=== PATIENT | female | born 1965 | race Caucasian/White ===

== ENCOUNTER → 2017-02-25 | Outpatient (CLI) | payer OTHER ==
--- NOTE | 2017-03-02 19:53 | HOLTMON ---
[facility] Test Date: 2017-02-25 Pat Name: VICKIE SINHA Department: Room: - Gender: Female Shank Sorter: PHIL BOWMAN : 1965 Requested By: Merle Eaton Order Number: [id number] Reading MD: Ramses Pina Interpretive Statements BOTH PARENT HAVE HEART PROBLEM Underlying sinus rhythm with a rate that varied between 54 bpm at 10:22 PM and 95 bpm at 3:40 AM, averaging 70 bpm. Rare isolated asymptomatic PACs (averaging 17 per hour), atrial couplets (8 per hour) and rare atrial triplets/4 beat runs of ectopic atrial tachycardia but no true PSVT. Very rare asymptomatic PVCs averaging less than one per hour. The patient did not report palpitations during this 24 hours. The observed rhythm findings would be considered well within normal limits. Electronically Signed On 03-02-2017 19:53:02 EDT by Ramses Pina
== END ==
LOC: M EKG 11:57
PROVIDERS: ATTEND Registered Nurse
DX: R00.2 Palpitations (principal)

== ENCOUNTER → 2018-09-25 | Outpatient (CLI) | payer OTHER ==
[2018-09-25 11:08] LABS: BASO # 0.1 10^3/uL (0.0-0.2); BASO % 0.8 % (0.0-1.0); EOS # 0.3 10^3/uL (0.0-0.50); EOS % 2.3 % (0.0-3.0); HEMATOCRIT 37.9 % (36.0-47.0); HEMOGLOBIN 12.4 g/dl (12.0-15.5); LYMPH # 3.6 10^3/uL (1.5-4.5); LYMPH % 29.7 % (24.0-44.0); MEAN CORPUSCULAR HEMOGLOBIN 28.5 pg (27.0-33.0); MEAN CORPUSCULAR HGB CONC 32.7 g/dl (32.0-36.5); MEAN CORPUSCULAR VOLUME 87.1 fl (80.0-96.0); MONO # 0.7 10^3/uL (0.0-0.8); MONO % 5.7 % (0.0-5.0); NEUTROPHILS # 7.4 10^3/uL (1.8-7.7); NEUTROPHILS % 60.5 % (36.0-66.0); PLATELET COUNT, AUTOMATED 342 10^3/uL (150-450); RED BLOOD COUNT 4.35 10^6/uL (4.00-5.40); WHITE BLOOD COUNT 12.2 10^3/uL (4.0-10.0)
[2018-09-25 11:34] LABS: ALT/SGPT 43 U/L (12-78); BILIRUBIN,TOTAL 0.8 MG/DL (0.2-1.0); BLOOD UREA NITROGEN 11 MG/DL (7-18); CALCIUM LEVEL 9.3 MG/DL (8.5-10.1); CARBON DIOXIDE LEVEL 26 MEQ/L (21-32); CHLORIDE LEVEL 103 MEQ/L (98-107); CREATININE FOR GFR 0.82 MG/DL (0.55-1.30); FREE T4 1.03 NG/DL (0.76-1.46); GLOMERULAR FILTRATION RATE > 60.0 (>51); GLUCOSE, FASTING 97 MG/DL (70-100); IRON (FE) 79 UG/DL (50-170); PERCENT SATURATION 19.5 % (13.2-45.0); POTASSIUM SERUM 4.2 MEQ/L (3.5-5.1); SODIUM LEVEL 135 MEQ/L (136-145); TOTAL IRON BINDING CAPACITY 406 UG/DL (250-450); TOTAL PROTEIN 7.7 GM/DL (6.4-8.2)
[2018-09-25 11:37] LABS: HEPATITIS B SURFACE ANTIBODY NEGATIVE (POSITIVE)
[2018-09-25 11:48] LABS: HEPATITIS B SURFACE ANTIGEN NEGATIVE (NEGATIVE)
[2018-09-25 12:15] LABS: HEPATITIS C VIRUS ABY INDEX 0.1 INDEX (<0.8)
[2018-09-25 12:16] LABS: HEPATITIS B CORE ANTIBODY IGM NEGATIVE (NEGATIVE)
[2018-09-25 12:18] LABS: HEPATITIS A ANTIBODY IGM NEGATIVE (NEGATIVE)
== END ==
LOC: M LAB 09:54
PROVIDERS: ATTEND Internal Medicine Gastroenterology
DX: R19.7 Diarrhea, unspecified (principal); R63.4 Abnormal weight loss

== ENCOUNTER 2018-10-03 11:50 | Day surgery (SDC) | payer OTHER ==
[~2018-10-03] VITALS: Ht 160 cm; Wt 56.7 kg
[~2018-10-03 11:50] MED LIST: AMLO10TA5 PO; ATEN100T PO; ATOR40TA75 PO; BASA100I SC; BUPR300T34 PO; CLON0.5T8 PO; GEMF600T5 PO; LOSA100T8 PO; METF10004 PO; NESI25TA PO; NICO14DI24 TD; TRAZ-163 PO
[2018-10-03] MEDS ORDERED: NS 1,000 ML IV ONE (13:00)
[2018-10-03] MEDS ORDERED: fentaNYL 100 MCG/2 ML INJECTION (J3010) As Ordered ONE (13:51)
[2018-10-03] MEDS ORDERED: PROPOFOL 500 MG/50 ML VIAL As Ordered ONE (13:52)
[2018-10-03] MEDS ORDERED: LIDOCAINE 2% INJ 100 MG/5 ML SDV (FOR ANES.) As Ordered ONE (13:58)
--- NOTE | 2018-10-03 15:12 | ROOR ---
Patient Name: Rina Gould Procedure Date: 10/03/2018 2:59 PM Date of : 1965 Age: 53 Room: [facility] Gender: Female Note Status: Finalized Procedure: Upper GI endoscopy Indications: Weight loss Providers: Fransisco BUCIO MD Referring MD: Rita DE LEON MD Requesting Provider: Medicines: Monitored Anesthesia Care Complications: No immediate complications. Procedure: Pre-Anesthesia Assessment: - The heart rate, respiratory rate, oxygen saturations, blood pressure, adequacy of pulmonary ventilation, and response to care were monitored throughout the procedure. The Endoscope was introduced through the mouth, and advanced to the second part of duodenum. The upper GI endoscopy was accomplished without difficulty. The patient tolerated the procedure well. Findings: The esophagus was normal. The stomach was normal. The examined duodenum was normal. Impression: - Normal esophagus. - Normal stomach. - Normal examined duodenum. - No specimens collected. Recommendation: - Observe patient's clinical course. Fransisco Bucio MD Fransisco BUCIO MD 10/03/2018 3:11:32 PM This report has been signed electronically. Number of Addenda: 0 Note Initiated On: 10/03/2018 2:59 PM Estimated Blood Loss: Estimated blood loss: none.
--- NOTE | 2018-10-03 15:39 | ROOR ---
Patient Name: Rina Gould Procedure Date: 10/03/2018 3:00 PM Date of : 1965 Age: 53 Room: [facility] Gender: Female Note Status: Finalized Procedure: Colonoscopy Indications: Change in bowel habits, Weight loss Providers: Fransisco BUCIO MD Referring MD: Rita DE LEON MD Requesting Provider: Medicines: Monitored Anesthesia Care Complications: No immediate complications. Procedure: Pre-Anesthesia Assessment: - The heart rate, respiratory rate, oxygen saturations, blood pressure, adequacy of pulmonary ventilation, and response to care were monitored throughout the procedure. The Colonoscope was introduced through the anus and advanced to the cecum, identified by appendiceal orifice and ileocecal valve. The colonoscopy was performed without difficulty. The patient tolerated the procedure well. The quality of the bowel preparation was adequate and fair. Findings: The perianal and digital rectal examinations were normal. A 7 mm polyp was found in the hepatic flexure. The polyp was sessile. The polyp was removed with a cold snare. Resection and retrieval were complete. Mild sigmoid diverticulosis and small internal hemorrhoids. The exam was otherwise without abnormality on direct and retroflexion views. Biopsies for histology were taken with a cold forceps from the entire colon for evaluation of microscopic colitis. Impression: - Preparation of the colon was fair/adequate. - One 7 mm polyp at the hepatic flexure, removed with a cold snare. Resected and retrieved. - Mild sigmoid diverticulosis and small internal hemorrhoids. - The examination was otherwise normal on direct and retroflexion views. - Biopsies were taken with a cold forceps from the entire colon for evaluation of microscopic colitis. Recommendation: - Repeat colonoscopy in 3 years because the bowel preparation was suboptimal. - Repeat colonoscopy in 3 years for adenoma surveillance. Fransisco Bucio MD Fransisco BUCIO MD 10/03/2018 3:38:20 PM This report has been signed electronically. Number of Addenda: 0 Note Initiated On: 10/03/2018 3:00 PM Estimated Blood Loss: Estimated blood loss: none.
[2018-10-03 16:00] VITALS: BP 135/73
== END 2018-10-03 16:11 | disposition home or self-care (01) ==
LOC: M OPP 11:50
PROVIDERS: ATTEND Internal Medicine Gastroenterology
DX: D12.3 Benign neoplasm of transverse colon (principal); R19.4 Change in bowel habit; R63.4 Abnormal weight loss; K57.30 Diverticulosis of large intestine without perforation or abscess without bleeding; K74.60 Unspecified cirrhosis of liver; Z79.899 Other long term (current) drug therapy; Z79.84 Long term (current) use of oral hypoglycemic drugs; F17.210 Nicotine dependence, cigarettes, uncomplicated
CPT/HCPCS: 43235; 45380; 45385; 88305; J3010

== ENCOUNTER → 2018-10-19 | Outpatient (REF) | payer OTHER | LOC: M LAB REF 12:49 | PROVIDERS: ATTEND Internal Medicine Endocrinology, Diabetes & Metabolism | DX: E04.2 Nontoxic multinodular goiter (principal) ==

== ENCOUNTER → 2019-06-29 | Outpatient (CLI) | payer OTHER ==
[2019-06-29 11:03] LABS: ALBUMIN 3.8 GM/DL (3.2-5.2); ALT/SGPT 38 U/L (12-78); BILIRUBIN,DIRECT < 0.1 MG/DL (0.0-0.2); BILIRUBIN,TOTAL 0.3 MG/DL (0.2-1.0); BLOOD UREA NITROGEN 12 MG/DL (7-18); CREATININE FOR GFR 0.83 MG/DL (0.55-1.30); GAMMA GLUTAMYLTRANSPEPTIDASE 55 U/L (5-55); GLOMERULAR FILTRATION RATE > 60.0 (>51); TOTAL PROTEIN 7.9 GM/DL (6.4-8.2)
== END ==
LOC: M LAB 09:36
PROVIDERS: ATTEND Internal Medicine Gastroenterology
DX: K70.30 Alcoholic cirrhosis of liver without ascites (principal); R63.4 Abnormal weight loss

== ENCOUNTER → 2020-03-11 | Outpatient (CLI) | payer OTHER ==
[~2020-03-11] MED LIST changes: -AMLO10TA5 PO; +AMLO1TAB25 PO; -BUPR300T34 PO; +BUPR300T92 PO; +CLON0.5T2 PO; -CLON0.5T8 PO; +EXEM25TA PO; +FENO67CA2 PO; +FERR325T3 PO; +GABA-843 PO; +JANU100T PO; +LETR2.5T2 PO; +LISI10TA4 PO; +METO1TAB87 PO; -TRAZ-163 PO; +TRAZ-257 PO
--- NOTE | 2020-04-15 10:43 | DEXA ---
AP SPINE L2 - L4 1.344 1.2 2.2 LT FEMUR TOTAL LT NECK Ck RT FEMUR TOTAL 0.956 -0.4 0.3 RT NECK 1.048 0.1 1.2 TOTAL BODY TOTAL OTHER COMMENTS: Normal Bone Densitometry of the spine. Normal Bone Densitometry of the right hip. FOLLOW-UP: Recommendation for the next bone density exam: 5 years. RENETTA
== END ==
LOC: M WHC 17:27
PROVIDERS: ATTEND Internal Medicine Medical Oncology
DX: M85.9 Disorder of bone density and structure, unspecified (principal)

== ENCOUNTER → 2020-11-03 | Outpatient (CLI) | payer OTHER ==
[~2020-11-03] MED LIST changes: +GABA-282 PO; -GABA-843 PO; +INSU100I28 SQ; +LISI10TA22 PO; -LISI10TA4 PO; +TRUL10IN SC
--- NOTE | 2020-11-03 13:18 | REP ---
INDICATION: LT BREAST MASS. Status post mastectomy January of 2020. 2 lumps in the inferior aspect of the mastectomy scar. COMPARISON: None. TECHNIQUE: Targeted sonography of the left chest wall. FINDINGS: There are 2 palpable areas adjacent 1 another along the mastectomy scar. Both of these areas have a similar appearance being complex but essentially isoechoic. One measures 7 by 15 x 4 mm and the other 6 x 8 x 3 mm. They are not simple cysts or simple fluid collections. Both are just beneath the dermis. IMPRESSION: Palpable areas correspond to solid cysts subdermal areas sonographically. These are not simple cysts and are nonspecific. They are essentially isoechoic. If biopsy is not performed, close clinical follow-up is recommended. <Electronically signed by Syd Perdomo > 11/03/20 [id number]
== END ==
LOC: M RAD 11:34
PROVIDERS: ATTEND Internal Medicine Medical Oncology
DX: N60.02 Solitary cyst of left breast (principal); Z90.12 Acquired absence of left breast and nipple; Z85.3 Personal history of malignant neoplasm of breast

== ENCOUNTER → 2020-11-04 | Outpatient (CLI) | payer OTHER ==
[2020-11-04 13:01] LABS: ALBUMIN 3.8 GM/DL (3.2-5.2); ALT/SGPT 45 U/L (12-78); BILIRUBIN,TOTAL 0.4 MG/DL (0.2-1.0); BLOOD UREA NITROGEN 12 MG/DL (7-18); CALCIUM LEVEL 9.8 MG/DL (8.5-10.1); CARBON DIOXIDE LEVEL 28 MEQ/L (21-32); CHLORIDE LEVEL 107 MEQ/L (98-107); CREATININE FOR GFR 0.79 MG/DL (0.55-1.30); GLOMERULAR FILTRATION RATE > 60.0 (>51); GLUCOSE, FASTING 128 MG/DL (70-100); POTASSIUM SERUM 4.6 MEQ/L (3.5-5.1); PTH INTACT 13.3 PG/ML (18.5-88.0); SODIUM LEVEL 139 MEQ/L (136-145); TOTAL PROTEIN 7.5 GM/DL (6.4-8.2)
[2020-11-05 11:10] LABS: ALBUMIN % 57.2 % (55.8-66.1); ALPHA-1-GLOBULIN % 3.6 % (2.9-4.9); ALPHA-2-GLOBULINS % 10.8 % (7.1-11.8); BETA-1-GLOBULINS % 6.5 % (4.7-7.2); BETA-2-GLOBULINS % 5.6 % (3.2-6.5)
[2020-11-05 11:11] LABS: ALBUMIN 4.29 GM/DL (3.29-5.55); ALPHA-1-GLOBULINS 0.27 GM/DL (0.17-0.41); ALPHA-2-GLOBULINS 0.81 GM/DL (0.42-0.99); BETA-1-GLOBULINS 0.49 GM/DL (0.28-0.60); BETA-2-GLOBULINS 0.42 GM/DL (0.19-0.55); GAMMA GLOBULIN % 16.3 % (11.1-18.8); GAMMA GLOBULINS 1.22 GM/DL (0.65-1.58)
[2020-11-05 18:07] LABS: FREE LAMBDA LIGHT CHAINS SERUM 27.5 mg/L (5.7-26.3); KAPPA/LAMBDA RATIO SERUM 1.16 (0.26-1.65)
== END ==
LOC: M LAB 11:13
PROVIDERS: ATTEND Internal Medicine Medical Oncology
DX: C50.912 Malignant neoplasm of unspecified site of left female breast (principal)

== ENCOUNTER → 2020-11-06 | Outpatient (CLI) | payer OTHER ==
[2020-11-06 15:12] LABS: INR 0.93; PROTHROMBIN TIME 12.7 SECONDS (12.5-14.3)
[2020-11-06 15:27] LABS: ALBUMIN 3.9 GM/DL (3.2-5.2); ALT/SGPT 61 U/L (12-78); BILIRUBIN,DIRECT < 0.1 MG/DL (0.0-0.2); BILIRUBIN,TOTAL 0.2 MG/DL (0.2-1.0); BLOOD UREA NITROGEN 9 MG/DL (7-18); CREATININE FOR GFR 0.72 MG/DL (0.55-1.30); GLOMERULAR FILTRATION RATE > 60.0 (>51); TOTAL PROTEIN 7.4 GM/DL (6.4-8.2)
== END ==
LOC: M LAB 12:09
PROVIDERS: ATTEND Internal Medicine Gastroenterology
DX: K70.30 Alcoholic cirrhosis of liver without ascites (principal)

== ENCOUNTER → 2020-11-18 | Outpatient (CLI) | payer OTHER ==
--- NOTE | 2020-11-18 12:26 | REP ---
INDICATION: LT SHOULDER PAIN, HX OF BREAST CA. COMPARISON: None. TECHNIQUE/RADIOTRACER AND DOSE: Following the intravenous administration of 21.8 mCi technetium 99 M MDP, patient's whole-body is imaged in multiple projections. FINDINGS: There is arthritic uptake seen in the wrists bilaterally. There is mild increased uptake in the right mandible. This is likely related to the patient's dentition. There is no compelling scintigraphic evidence of osseous metastases. Renal and bladder activity are seen. IMPRESSION: No compelling scintigraphic evidence of osseous metastases. <Electronically signed by Jason Moncada > 11/18/20 [id number]
== END ==
LOC: M RAD 07:33
PROVIDERS: ATTEND Internal Medicine Medical Oncology
DX: M25.512 Pain in left shoulder (principal)
CPT/HCPCS: 78306; A9503

== ENCOUNTER → 2020-12-05 | Outpatient (CLI) | payer OTHER ==
[~2020-12-05] MED LIST changes: +DICY10SO PO; +HYDR-3363 PO; +TOPR25TA PO; +VITAE40CA PO; +tumeric PO
== END ==
LOC: M LABSMTC 09:42
PROVIDERS: ATTEND Anesthesiology
DX: Z01.812 Encounter for preprocedural laboratory examination (principal); Z20.822 Contact with and (suspected) exposure to COVID-19

== ENCOUNTER → 2020-12-05 | Outpatient (REF) | payer OTHER ==
[2020-12-05 16:01] LABS: BLOOD UREA NITROGEN 10 MG/DL (7-18); CALCIUM LEVEL 9.4 MG/DL (8.5-10.1); CARBON DIOXIDE LEVEL 27 MEQ/L (21-32); CHLORIDE LEVEL 103 MEQ/L (98-107); CREATININE FOR GFR 0.86 MG/DL (0.55-1.30); GLOMERULAR FILTRATION RATE > 60.0 (>51); GLUCOSE, FASTING 259 MG/DL (70-100); POTASSIUM SERUM 4.4 MEQ/L (3.5-5.1); SODIUM LEVEL 134 MEQ/L (136-145)
== END ==
LOC: M PLALAB 15:03
PROVIDERS: ATTEND Nurse Practitioner Family
DX: N28.9 Disorder of kidney and ureter, unspecified (principal)

== ENCOUNTER → 2020-12-05 | Outpatient (CLI) | payer OTHER ==
--- NOTE | 2020-12-05 10:51 | REPMRS ---
Patient History The patient states she had a clinical breast exam in October 2020. Patient has been on Exemestane since 03/2020. Patient has history of breast cancer at age 55. No known family history of cancer. Mastectomy of the left breast, January 2020. Patient has no breast complaints but commented her right breast was tender during the mammogram. Patient has signed the MRS history sheet. Diagnostic Unilateral Mammo: Right Breast - December 05, 2020 - Exam #: [id number] CC and MLO view(s) were taken of the right breast. Technologist: Natalie Carolina, Technologist Prior study comparison: December 05, 2019, digital mammo screening bilat, performed at [facility]. FINDINGS: There are scattered fibroglandular densities. There has been no change in the appearance of the right breast parenchyma in the interval since the prior examination. No mass, architectural distortion, or microcalcific grouping has developed. No suspicious finding. 3-D tomosynthesis shows no additional findings. Assessment: BI-RADS/ACR category 2 mammogram. Benign Findings. Recommendation Routine screening mammogram of the right breast in 1 year. This mammogram was interpreted with the aid of an FDA-approved computer-aided dectection system. Electronically Signed By: Syd Perdomo MD 12/05/20 2408
== END ==
LOC: M WHC 09:48
PROVIDERS: ATTEND Surgery
DX: C50.912 Malignant neoplasm of unspecified site of left female breast (principal)
CPT/HCPCS: 77065; G0279

== ENCOUNTER → 2021-01-16 | Outpatient (CLI) | payer OTHER ==
[~2021-01-16] MED LIST changes: +ISOVUE-370 76% 100ML VIAL As Ordered ONE
--- NOTE | 2021-01-17 07:56 | REP ---
INDICATION: RENAL LESION. COMPARISON: None TECHNIQUE: Axial noncontrast, contrast-enhanced and delayed images of the abdomen using 100 cc Isovue 370 intravenous contrast material. Coronal and sagittal reformations obtained. This CT examination was performed using the following dose reduction techniques: Automated exposure control, adjustment of mA and/or kv according to the patient's size, and the use of iterative reconstruction technique. FINDINGS: There appears to be a 1.5 cm mildly enhancing lesion along the posterior upper pole aspect of the right kidney suggesting neoplasm unless proven otherwise. Remainder of the right kidney is normal and there is no perinephric stranding, adenopathy or venous/arterial abnormality. Liver demonstrates fatty infiltration without focal hepatic lesion. Spleen, pancreas, bilateral adrenal glands are normal. Prior cholecystectomy noted. The left kidney includes a 2 mm nonobstructing nephrolith. Visualized portions of the enteric system are unremarkable. No ascites. No free air. No obvious significant adenopathy. Lung bases clear. IMPRESSION: 1. A 1.5 cm mildly enhancing lesion in the right kidney is suspicious for neoplasm. No associated perinephric stranding, adenopathy, or vascular abnormality. 2. 2 mm nonobstructing left nephrolith. <Electronically signed by Greyson Martínez > 01/17/21 1023
== END ==
LOC: M RAD 17:40
PROVIDERS: ATTEND Nurse Practitioner Family
DX: N28.9 Disorder of kidney and ureter, unspecified (principal); N20.0 Calculus of kidney
CPT/HCPCS: 74170; Q9967

== ENCOUNTER 2021-03-19 07:30 | Inpatient (IN) | payer OTHER ==
[~2021-03-19] VITALS: Ht 157.5 cm; Wt 58.5 kg
[~2021-03-19 07:30] MED LIST changes: +ALPR1TAB3 PO; +CALC1TAB30 PO; +CLON0.2T PO; +DESV25TA; -FENO67CA2 PO; +FENO67CA6 PO; +FERR325T19; +FLUO10CA16; -ISOVUE-370 76% 100ML VIAL As Ordered ONE; +PRESTIQ PO; +PRIS1TAB PO; +QUET1TAB17 PO; +RA T500C2 PO; +SERO1TAB3 PO; +XANA1TAB2 PO; +ZITH500T PO
[2021-03-25] MEDS ORDERED: PROC30TA PO (09:11)
[2021-04-07] MEDS ORDERED: ceFAZolin SOD 2 GM in IV 1 EA IV ONE (06:00)
[2021-04-07] MEDS ORDERED: LR 1,000 ML IV ONE (06:00)
[2021-04-07] MEDS ORDERED: ROCURONIUM BROMIDE 50 MG/5 ML VIAL As Ordered ONE ×3 (09:53→15:54)
[2021-04-07] MEDS ORDERED: propofoL 200 MG/20 ML VIAL As Ordered ONE ×2 (09:53→17:52)
[2021-04-07] MEDS ORDERED: fentaNYL 100 MCG/2 ML INJECTION (J3010) As Ordered ONE (09:53)
[2021-04-07] MEDS ORDERED: LIDOCAINE 2% 100MG/5ML SDV (FOR ANES.) As Ordered ONE ×2 (09:53→09:54)
[2021-04-07] MEDS ORDERED: dexameTHASONE 4 MG/ML 1ML VIAL (J1100 PER 1MG) As Ordered ONE (09:54)
[2021-04-07] MEDS ORDERED: ONDANSETRON 4MG/2ML VIAL As Ordered ONE (09:54)
[2021-04-07] MEDS ORDERED: MIDAZOLAM INJ 2MG/2ML VIAL (J2250 PER 1MG) As Ordered ONE (09:54)
--- OUTSIDE RECORDS SUMMARY | 2021-04-07 10:40 | CCD | Continuity of Care Document ---
Author Author Rina ROSE MD Organization Unknown Address [address] [place] [address] Phone [phone] Care Team Providers Care Sketch Artist Name Role Phone Rita Rose MD AUTM [phone] [facility] Gastroenterology AUTM [phone] Erika Chandra AUTM [phone] [facility] [facility] AUTM [phone] [facility] Behavioral Health AUTM [phone] Braulio Figueroa MD AUTM [phone] [facility] AUTM [phone] [facility] Breast Surgery; DR. Duarte AUTM Problems Active Problems Provider Date Type 2 diabetes mellitus VINAYAK [place] Onset: 06/05/20 18 Micronodular cirrhosis Rita Rose MD Onset: 07/18/20 18 Note: Steatohepatitis with foci of micro nodular cirrhosis on biopsy 11/24/16. Congenital cystic disease of liver Rita Rose MD Ons et: 07/28/2018 Non-toxic nodular goiter Rita Rose MD Onset: 2017 Note: Biopsy September 2018. Benign Hyperlipidemia Rita Rose MD Onset: 07/28/2018 Malaise and fatigue Rita Rose MD Onset: 07/28/2018 Polyp of colon Rita Rose MD Onset: 10/04/2018 Note: 7 mm hepatic flexure polyp Diverticular disease Rita Rose MD Onset: 10/04/2018 Note: Mild sigmoed diverticulosis Abnormal findings diagnostic imaging of liver+biliary tract Rita Rose MD Onset: 12/20/2018 Anxiety state Rita Rose MD Onset: 12/20/2018 Peripheral arterial occlusive disease Rita Rose MD Onset: 05/09/2019 Note: Stenosis in the left common femora l artery and right common femoral arteries as described above with an occluded left SFA. Stenosis in the right popliteal artery as described above. Absent dorsalis pedis artery on the left in the foot. 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 ER and [place] posi tive. Her 2 negative. Ki67 10% positive. History of mastectomy Rita Rose MD Onset: 0 Iron deficiency anemia Rita Rose MD Onset: 04/01/20 20 Social History Type Date Description Comments Sex Unknown Tobacco Use Start: Unknown Light tobacco smoker (10 or fewe r cigarettes/day) Tobacco Use Start: Unknown Never Smoked Cigars Tobacco Use Start: Unknown Never Smoked A Pipe Tobacco Use Start: Unknown Never Used Smokeless Tobacco ETOH Use Denies alcohol use Tobacco Use Start: Unknown Patient is a current smoker, smo kes every day 5 cigarettes per day Recreational Drug Use Denies Drug Use Guns in Home Yes, Locked Up Smoke Alarms Carbon Monoxide Detector: Yes Smoke Alarms Yes Allergies, Adverse Reactions, Alerts Active Allergies Reaction Severity Comments Date NKEA 05/22/2019 NKFA 05/22/2019 Trulicity nausea, head fuzzy, feeling off 01/19/2021 Inactive Allergies NKDA 06/05/2018 Medications Active Medications SIG Qnty Indications Ordering Provide r Date Cephalexin 500mg Capsules 1 by mouth twice daily 14caps Rita Rose MD 03/13/2021 Clonidine HCL 0.1mg Tablets take one tablet three times daily 90tabs Rita Rose MD 0 03/13/2021 Tessalon Perles 100mg Capsules 2 capsules by mouth three time per day as needed for cough 30capflores Rose MD 03/13/2021 Albuterol Sulfate HFA 108(90Base) mcg/Act Aerosol inhale 1 puff by mouth every 4 hours as needed 25.5gm Rita Rose MD 03/13/2021 Semglee 100Unit/ML Solution Pen-In ject inject subcutaneously 26 units once a day 6ml E11.9 Rita ventura MD 09/24/2020 Cyclobenzaprine HCL 10mg Tablets take one tablet by mouth twice a day as needed for muscle spasm 90tabs Rita Rose MD 05/15/2020 Amlodipine Besylate 10mg Tablets take 1 tablet by mouth once a day 30tabs Rita Rose MD 05/15/2020 Ulticare Miscellaneous Use With Basaglar Pen Once Daily. 30unisabel Rose MD 04/16/2020 Mastectomy Bra/Prosthesis Dx- Left mastectomy for Carcinoma breast Rita Rose MD 02/12/2020 Pen [place] 3/16" 31G X 5 mm Misc use with basaglar pen once daily. 100units Rita Rose MD 0 10/17/2019 Trazodone HCL 100mg Tablets 1 tab by mouth daily at bedtime take 1/2 tablet by mouth in the morning and one tablet in the evening will be prescribed by at [facility] 90tabs Lacey Rose MD 09/26/2019 Fenofibrate Micronized 67mg Capsul es take 1 capsule by mouth once a day 90sarita Rose MD 05/22/2019 Atorvastatin Calcium 40mg Tablets Take 1 Tablet By Mouth AT Bedtime 30tacamila Rose MD 08/18/2018 Nicotine Transdermal System Step 2 14mg/24HR Patches 24HR 1 patch to skin per day. Take off at night. 28unisabel Rose MD 07/28/2018 Metformin HCL 1000mg Tablets take 1 tablet by mouth twice a day 180awais Rose MD Gabapentin 300mg Capsules take 1 capsule by mouth three times a day 180capflores Rose MD Ferrousul 325(65Fe) mg Tablets 1 by mouth every other day(otc) Unknown Calcium 500 + D3 [id number] Ta blets 2 daily by mouth Unknown Exemestane 25mg Tablets Unknown Freestyle Lite Test Strips test blood sugars twice daily 200unisabel Rose MD 000 Desvenlafaxine Succinate ER 25mg Tablets ER 24HR Take One Tablet By Mouth Once A Day In The Morning Unknown Quetiapine Fumarate 25mg Tablets Unknown Alprazolam 1mg Tablets half tablet in the morningand 1 at bedtime. 45tacamila Rose MD 0 History Medications Prednisone 20mg Tablets 3 by mouth daily for 2 days. 2 by mouth daily for next 2 days. then 1 by mouth for 2 days. take in the morning. 12tacamila Rose MD 03/13/2021 - 04/01/2021 Nifedipine ER 30mg Tablets ER 24HR 1 by mouth dialy 30awais Rose MD 03/13/2021 - 03/13/2021 Azithromycin 250mg Tablets two tablets orally today then 1 tablet orally daily 6tacamila best MD 02/27/2021 - 03/13/2021 Immunizations CPT Code Status Date Vaccine Lot # [id number] Given 05/22/2019 HepB Adult (Engerix/Recombiv ax) 1mL Vacc [id number] Given 05/22/2019 Influenza (>= 6 Months) P.F. Vaccine [id number] Given 12/20/2018 HepB Adult (Engerix/Recombiv ax) 1mL Vacc [id number] Given 12/20/2018 Pneumococcal 13(Prevnar 13) Vaccine [id number] Given 08/18/2018 HepB Adult (Engerix/Recombiv ax) 1mL Vacc [id number] Vital Signs Date Vital Result Comment 04/01/2021 8:42am BP Systolic 132 mmHg BP Diastolic 70 mmHg Heart Rate 68 /min Body Temperature 96.7 F Respiratory Rate 16 /min O2 % BldC Oximetry 96 % Weight 130.00 lb Weight 58.968 kg Height 62 inches 5'2" BMI (Body Mass Index) 23.8 kg/m2 BSA (Body Surface Area) 1.59 m2 03/13/2021 9:35am BP Systolic 132 mmHg BP Diastolic 70 mmHg Heart Rate 72 /min Body Temperature 96.0 F Respiratory Rate 16 /min O2 % BldC Oximetry 97 % Weight 131.00 lb Weight 59.422 kg Height 62 inches 5'2" BMI (Body Mass Index) 24.0 kg/m2 BSA (Body Surface Area) 1.60 m2 Results Test Acquired Date Facility Test Result H/L Range Note Urinalysis 03/13/2021 [facility] Urinalysis (SEE NOTE) 1, 2 Source R Color yellow Normal: Yellow Clarity clear Normal: Clear Spec [place] 1.010 1.001 - 1.030 pH 6 5 - 9 Glucose NORM Normal: Negative Bilirubin NEG Normal: Negative Ketone NEG Normal: Negative Protein 30 Normal: Negative Nitrite NEG Normal: Negative Blood NEG Normal: Negative Leuk Est NEG Normal: Negative Urobilinogen NOR less than 1.0 mg/dL Microscopic Not Indicate Cuture Urine 03/13/2021 [facility] Culture Urine (SEE NOTE) 3 Laboratory test finding 03/13/2021 [facility] Hgba1c 8.2 % High 4.4 - 6.1 4 CBC With Differential 03/06/2021 [facility] White Blood Count 8.5 10 Normal 4.0-10.0 Red Blood Count 4.47 10 Normal 4.00-5.40 Hemoglobin 13.3 g/dL Normal 12.0-15.5 Hematocrit 40.3 % Normal 36.0-47.0 Mean Corpuscular Volume 90.2 fl Normal 80.0-96.0 Mean Corpuscular Hemoglobin 29.8 pg Normal 27.0-33.0 Mean Corpuscular HGB Conc 33.0 g/dL Normal 32.0-36.5 Red Cell Distribution Width 13.9 % Normal 11.5-14.5 Platelet Count, Automated 333 10 Normal 150-450 Neutrophils % 63.0 % Normal 36.0-66.0 Lymph % 26.5 % Normal 24.0-44.0 [place] % 6.8 % Normal 2.0-8.0 Eos % 1.9 % Normal 0.0-3.0 Baso % 0.9 % Normal 0.0-1.0 Immature Granulocyte % 0.9 % Normal 0-3.0 Nucleated Red Blood Cell % 0.0 % Normal 0-0 Neutrophils # 5.3 10 Normal 1.5-8.5 Lymph # 2.3 10 Normal 1.5-5.0 [place] # 0.6 10 Normal 0.0-0.8 Eos # 0.2 10 Normal 0.0-0.5 Baso # 0.1 10 Normal 0.0-0.2 Comprehensive Metabolic Profil 03/06/2021 [facility] Glucose, Fasting 270 mg/dL High 70-100 Blood Urea Nitrogen 10 mg/dL Normal 7-18 Creatinine For GFR 0.92 mg/dL Normal 0.55-1.30 Glomerular Filtration Rate > 60.0 Normal >51 5 Sodium Level 135 mEq/L Low 136-145 Potassium Serum 3.7 mEq/L Normal 3.5-5.1 Chloride Level 104 mEq/L Normal 98-107 Carbon Dioxide Level 24 mEq/L Normal 21-32 Anion Gap 7 mEq/L Low 8-16 Calcium Level 9.3 mg/dL Normal 8.5-10.1 Ast/Sgot 23 U/L Normal 7-37 Alt/SGPT 40 U/L Normal 12-78 Alkaline Phosphatase 119 U/L High 45-117 Bilirubin,Total 0.4 mg/dL Normal 0.2-1.0 Total Protein 8.0 GM/DL Normal 6.4-8.2 Albumin 3.5 GM/DL Normal 3.2-5.2 Albumin/Globulin Ratio 0.8 Low 1.2-2.2 Total Iron Binding Capacit 03/06/2021 [facility] Iron (Fe) 55 g/dL Normal 50-170 Total Iron Binding Capacity 363 g/dL Normal 250-450 Percent Saturation 15.2 % Normal 13.2-45.0 Laboratory test finding 03/06/2021 [facility] Ferritin 37 NG/ML Normal 8-252 Laboratory test finding 12/09/2020 [facility] Bedside Glucose 160 mg/dL High 70-105 CBC With Differential 11/26/2020 [facility] White Blood Count 11.2 10 High 4.0-10.0 Red Blood Count 4.38 10 Normal 4.00-5.40 Hemoglobin 12.6 g/dL Normal 12.0-15.5 Hematocrit 38.5 % Normal 36.0-47.0 Mean Corpuscular Volume 87.9 fl Normal 80.0-96.0 Mean Corpuscular Hemoglobin 28.8 pg Normal 27.0-33.0 Mean Corpuscular HGB Conc 32.7 g/dL Normal 32.0-36.5 Red Cell Distribution Width 15.0 % High 11.5-14.5 Platelet Count, Automated 287 10 Normal 150-450 Neutrophils % 75.0 % High 36.0-66.0 Lymph % 15.1 % Low 24.0-44.0 [place] % 6.7 % Normal 2.0-8.0 Eos % 1.6 % Normal 0.0-3.0 Baso % 0.7 % Normal 0.0-1.0 Immature Granulocyte % 0.9 % Normal 0-3.0 Nucleated Red Blood Cell % 0.0 % Normal 0-0 Neutrophils # 8.4 10 Normal 1.5-8.5 Lymph # 1.7 10 Normal 1.5-5.0 [place] # 0.8 10 Normal 0.0-0.8 Eos # 0.2 10 Normal 0.0-0.5 Baso # 0.1 10 Normal 0.0-0.2 Laboratory test finding 11/26/2020 [facility] Estradiol < 19.0 pg/mL Normal 6 FSH & LH Eval 11/26/2020 [facility] Follicle Stimulating Hormone 120.4 mIU/mL Normal 7 Luteinizing Hormone 52.8 mIU/mL Normal 8 Laboratory test finding 11/26/2020 [facility] Ferritin 38 NG/ML Normal 8-252 Total Iron Binding Capacit 11/26/2020 [facility] Iron (Fe) 47 g/dL Low 50-170 Total Iron Binding Capacity 361 g/dL Normal 250-450 Percent Saturation 13.0 % Low 13.2-45.0 Comprehensive Metabolic Profil 11/26/2020 [facility] Glucose, Fasting 204 mg/dL High 70-100 Blood Urea Nitrogen 10 mg/dL Normal 7-18 Creatinine For GFR 0.87 mg/dL Normal 0.55-1.30 Glomerular Filtration Rate > 60.0 Normal >51 9 Sodium Level 137 mEq/L Normal 136-145 Potassium Serum 4.1 mEq/L Normal 3.5-5.1 Chloride Level 104 mEq/L Normal 98-107 Carbon Dioxide Level 26 mEq/L Normal 21-32 Anion Gap 7 mEq/L Low 8-16 Calcium Level 9.7 mg/dL Normal 8.5-10.1 Ast/Sgot 22 U/L Normal 7-37 Alt/SGPT 40 U/L Normal 12-78 Alkaline Phosphatase 97 U/L Normal 45-117 Bilirubin,Total 0.5 mg/dL Normal 0.2-1.0 Total Protein 8.1 GM/DL Normal 6.4-8.2 Albumin 3.7 GM/DL Normal 3.2-5.2 Albumin/Globulin Ratio 0.8 Low 1.2-2.2 Prothrombin Time/Inr 11/06/2020 [facility] Prothrombin Time 12.7 seconds Normal 12.5-14.3 Inr 0.93 Normal 10 Laboratory test finding 11/06/2020 [facility] Immunoglobulin A 250.0 mg/dL Normal 70-400 Alpha Fetoprotein Tumor Quant < 1.3 NG/ML Normal <8.1 11 Tissue Transglutaminase IgA <2 U/mL Normal 0-3 12 Creatinine With GFR 11/06/2020 [facility] Creatinine For GFR 0.72 mg/dL Normal 0.55-1.30 Glomerular Filtration Rate > 60.0 Normal >51 1 3 Laboratory test finding 11/06/2020 [facility] Blood Urea Nitrogen 9 mg/dL Normal 7-18 Liver Profile 11/06/2020 [facility] Ast/Sgot 35 U/L Normal 7-37 Alt/SGPT 61 U/L Normal 12-78 Alkaline Phosphatase 93 U/L Normal 45-117 Bilirubin,Total 0.2 mg/dL Normal 0.2-1.0 Bilirubin,Direct < 0.1 mg/dL Normal 0.0-0.2 Total Protein 7.4 GM/DL Normal 6.4-8.2 Albumin 3.9 GM/DL Normal 3.2-5.2 Albumin/Globulin Ratio 1.1 Low 1.2-2.2 Comprehensive Metabolic Profil 11/04/2020 [facility] Glucose, Fasting 128 mg/dL High 70-100 Blood Urea Nitrogen 12 mg/dL Normal 7-18 Creatinine For GFR 0.79 mg/dL Normal 0.55-1.30 Glomerular Filtration Rate > 60.0 Normal >51 1 4 Sodium Level 139 mEq/L Normal 136-145 Potassium Serum 4.6 mEq/L Normal 3.5-5.1 Chloride Level 107 mEq/L Normal 98-107 Carbon Dioxide Level 28 mEq/L Normal 21-32 Anion Gap 4 mEq/L Low 8-16 Calcium Level 9.8 mg/dL Normal 8.5-10.1 Ast/Sgot 20 U/L Normal 7-37 Alt/SGPT 45 U/L Normal 12-78 Alkaline Phosphatase 86 U/L Normal 45-117 Bilirubin,Total 0.4 mg/dL Normal 0.2-1.0 Total Protein 7.5 GM/DL Normal 6.4-8.2 Albumin 3.8 GM/DL Normal 3.2-5.2 Albumin/Globulin Ratio 1.0 Low 1.2-2.2 Laboratory test finding 11/04/2020 [facility] PTH Intact 13.3 pg/mL Low 18.5-88.0 Immunotyping (Immunofixation) Serum (If 11/04/2020 [facility] It Serum Interpretation SEE COMMENT Normal 15 Its Pathologist Review REV'D BY O ADJAP <SEE NOTE> Normal 16 Serum Protein Electrophoresis 11/04/2020 [facility] Albumin % 57.2 % Normal 55.8-66.1 Imesw-2-Eakarerv % 3.6 % Normal 2.9-4.9 Pdggi-0-Drztnkeyg % 10.8 % Normal 7.1-11.8 Tnfl-3-Nluhepamr % 6.5 % Normal 4.7-7.2 Whso-5-Ejfveqqrw % 5.6 % Normal 3.2-6.5 Gamma Globulin % 16.3 % Normal 11.1-18.8 Albumin 4.29 GM/DL Normal 3.29-5.55 Bktzy-5-Lekuxfwzt 0.27 GM/DL Normal 0.17-0.41 Zmzio-4-Dceqmihed 0.81 GM/DL Normal 0.42-0.99 Yrol-4-Fkkkqccfm 0.49 GM/DL Normal 0.28-0.60 Fwno-9-Fvmsbaark 0.42 GM/DL Normal 0.19-0.55 Gamma Globulins 1.22 GM/DL Normal 0.65-1.58 Total Protein 7.5 GM/DL Normal 6.4-8.2 Spep Interpretation SEE COMMENT Normal 17 Spep Pathologist Review REV'D BY O ANN MARIE <SEE NOTE> Normal 18 Free [place] & Lambda LT Chains 11/04/2020 [facility] Free [place] Light [place]ains Serum 32.0 mg/L High 3.3-19.4 Free [place] Light [place] Serum 27.5 mg/L High 5.7-26.3 [place]/Lambda Ratio Serum 1.16 Normal 0.26-1.65 19 CBC With Differential 10/27/2020 [facility] White Blood Count 10.4 10 High 4.0-10.0 Red Blood Count 4.99 10 Normal 4.00-5.40 Hemoglobin 14.0 g/dL Normal 12.0-15.5 Hematocrit 43.5 % Normal 36.0-47.0 Mean Corpuscular Volume 87.2 fl Normal 80.0-96.0 Mean Corpuscular Hemoglobin 28.1 pg Normal 27.0-33.0 Mean Corpuscular HGB Conc 32.2 g/dL Normal 32.0-36.5 Red Cell Distribution Width 13.6 % Normal 11.5-14.5 Platelet Count, Automated 345 10 Normal 150-450 Neutrophils % 54.5 % Normal 36.0-66.0 Lymph % 35.7 % Normal 24.0-44.0 [place] % 6.4 % Normal 2.0-8.0 Eos % 1.8 % Normal 0.0-3.0 Baso % 1.0 % Normal 0.0-1.0 Immature Granulocyte % 0.6 % Normal 0-3.0 Nucleated Red Blood Cell % 0.0 % Normal 0-0 Neutrophils # 5.7 10 Normal 1.5-8.5 Lymph # 3.7 10 Normal 1.5-5.0 [place] # 0.7 10 Normal 0.0-0.8 Eos # 0.2 10 Normal 0.0-0.5 Baso # 0.1 10 Normal 0.0-0.2 Comprehensive Metabolic Profil 10/27/2020 [facility] Glucose, Fasting 91 mg/dL Normal 70-100 Blood Urea Nitrogen 13 mg/dL Normal 7-18 Creatinine For GFR 0.98 mg/dL Normal 0.55-1.30 Glomerular Filtration Rate > 60.0 Normal >51 2 0 Sodium Level 137 mEq/L Normal 136-145 Potassium Serum 4.1 mEq/L Normal 3.5-5.1 Chloride Level 104 mEq/L Normal 98-107 Carbon Dioxide Level 29 mEq/L Normal 21-32 Anion Gap 4 mEq/L Low 8-16 Calcium Level 10.3 mg/dL High 8.5-10.1 Ast/Sgot 24 U/L Normal 7-37 Alt/SGPT 51 U/L Normal 12-78 Alkaline Phosphatase 85 U/L Normal 45-117 Bilirubin,Total 0.3 mg/dL Normal 0.2-1.0 Total Protein 8.5 GM/DL High 6.4-8.2 Albumin 4.2 GM/DL Normal 3.2-5.2 Albumin/Globulin Ratio 1.0 Low 1.2-2.2 Total Iron Binding Capacit 10/27/2020 [facility] Iron (Fe) 63 g/dL Normal 50-170 Total Iron Binding Capacity 412 g/dL Normal 250-450 Percent Saturation 15.3 % Normal 13.2-45.0 Laboratory test finding 10/27/2020 [facility] Ferritin 34 NG/ML Normal 8-252 1 {SOURCE: Random Void~NURSE COLLECTED? N {SPECIMEN TYPE: RANDOM 2 URINALYSIS 3 _CULTURE URINE_ ^$[id number] ^^[id number] $$[id number] ^^[id number] $$758865 $$412117 $$722638 $$182052 $$[id number] $$101206 $$803348 $$250537 $$053166 $$116628 $$402648 $$486934 $$329414 $$902673 $$022184 $$048418 $$492549 $$361605 $$753244 $$925336 $$341909 $$762922 $$770429 ^^261216 $$003877 $$325064 $$[id number] -- Continued on next page -- Patient: BHARATH Villatoro Order: [id number] Page 2 Culture: CULTURE URINE Status: Final -- Continued on next page -- Patient: BHARATH Villatoro Order: [id number] Page 2 Culture: CULTURE URINE Status: Prelim $$[id number] $$[id number] REPORTED DATE/TIME: 03/17/2021 16:07 Culture: CULTURE URINE Status: Final Urine Culture,Comprehensive: P1 No growth in 36 - 48 hours. Previous result entered on 03/16/2021 07:07 ET No growth after 18-24 hours. P1 Test performed by: [facility] #: [id number] [address] [place] [address] [address] [id number] [facility] [id number] Adobe Architect : Be Wylie MD NPI #: Audio Production Instructor : 03/17/21.0722.XMT.SENT REF 03/17/[id number].XMT.SENT REF 4 {A1] {HB] 5 Units are mL/min/1.73 m2 Chronic Kidney Disease Staging per NKF: Stage I & II GFR >=60 Normal to Mildly Decreased Stage III GFR 30-59 Moderately Decreased Stage IV GFR 15-29 Severely Decreased Stage V GFR <15 Very Little GFR Left ESRD GFR <15 on TELECOMMUNICATIONS MANAGER 6 NORMAL MENSTRUATING FEMALES: FOLLICULAR PHASE 19.5-144.2 PG/ML MID CYCLE PEAK 63.9-356.7 PG/ML LUTEAL PHASE 55.8-214.2 PG/ML POST MENOPAUSAL FEMALES <32.2 PG/ML (UNTREATED) THE eESTRADIOL2 ASSAY IS PERFORMED ON THE [employer] BY CHEMILUMINESCENCE AND SHOULD NOT BE COMPARED INTERCHANGEABLY WITH OTHER METHODS. Falsely elevated Estradiol test results can be seen in patients treated with fulvestrant (Faslodex). Estradiol concentrations in fulvestrant treated women should only be measured by LC-MS (Liquid Chromatography-Mass Spectrometry). 7 NORMAL MENSTRUATING FEMALES: FOLLICULAR PHASE 2.5-10.2 mIU/mL MID CYCLE PEAK 3.4-33.4 mIU/mL LUTEAL PHASE 1.5-9.1 mIU/mL : <0.3 mIU/mL POST MENOPAUSAL FEMALES: 23.0-116.3 mIU/mL 8 NORMAL MENSTRUATING FEMALES: FOLLICULAR PHASE 1.9-12.5 mIU/mL MID CYCLE PEAK 8.7-76.3 mIU/mL LUTEAL PHASE 0.5-16.9 mIU/mL <1.5 mIU/mL POST MENOPAUSAL FEMALES: 15.9-54.0 mIU/mL CONTRACEPTIVES 0.7-5.6 mIU/mL 9 Units are mL/min/1.73 m2 Chronic Kidney Disease Staging per NKF: Stage I & II GFR >=60 Normal to Mildly Decreased Stage III GFR 30-59 Moderately Decreased Stage IV GFR 15-29 Severely Decreased Stage V GFR <15 Very Little GFR Left ESRD GFR <15 on TELECOMMUNICATIONS MANAGER 10 THERAPUTIC HUMAN INR VALUES INDICATIONS NORMAL RANGES PROPHYLAXIS/TREATMENT OF: VENOUS THROMBOSIS 2.0-3.0 PULMONARY EMBOLISM 2.0-3.0 PREVENTION OF SYSTEMIC EMBOLISM FROM: TISSUE HEART VALVES 2.0-3.0 ACUTE MYOCARDIAL INFARCTION 2.0-3.0 VALVULAR HEART DISEASE 2.0-3.0 ATRIAL FIBRILLATION 2.0-3.0 MECHANICAL VALVES(HIGH RISK) 2.5-3.5 RECURRENT MYOCARDIAL INFARCTION 2.5-3.5 11 THE AFP ASSAY IS PERFORMED O N THE [employer] BY CHEMILUMINESCENCE AND SHOULD NOT BE COMPARED INTERCHANGEABLY WITH OTHER METHODS. IT SHOULD NOT BE USED ALONE A SCREENING TEST OR DIAGNOSIS FOR THE PRESENCE OR ABSENCE OF MALIGNANT DISEASE. THESE RESULTS ARE NOT INTERPRETABLE IN FEMALES. PREDICTIONS OF DISEASE RECURRENCE SHOULD NOT BE BASED SOLELY ON VALUES OBTAINED FROM SERIAL PATIENT SERUM VALUES. 12 Negative 0 - 3 Weak Positive 4 - 10 Positive >10 . Tissue Transglutaminase (tTG) has been identified as the endomysial antigen. Studies have demonstr- ated that endomysial IgA antibodies have over 99% specificity for gluten sensitive enteropathy. Performed at: - [facility] [id number] Audio Production Instructor: Heide Lr MD, Phone: [phone] Units are mL/min/1.73 m2 Chronic Kidney Disease Staging per NKF: Stage I & II GFR >=60 Normal to Mildly Decreased Stage III GFR 30-59 Moderately Decreased Stage IV GFR 15-29 Severely Decreased Stage V GFR <15 Very Little GFR Left ESRD GFR <15 on TELECOMMUNICATIONS MANAGER 14 Units are mL/min/1.73 m2 Chronic Kidney Disease Staging per NKF: Stage I & II GFR >=60 Normal to Mildly Decreased Stage III GFR 30-59 Moderately Decreased Stage IV GFR 15-29 Severely Decreased Stage V GFR <15 Very Little GFR Left ESRD GFR <15 on TELECOMMUNICATIONS MANAGER 15 ATYPICAL SHAPE OF GAMMA HASEEB ON NOTED. UNABLE TO DEFINITIVELY DETERMINE THE PRESENCE OF ATYPICAL BANDS. SUGGEST FOLLOW-UP IN 6-9 MONTHS IF PATIENT'S SYMPTOMS WARRANT. 16 REV'D BY Reji AMATO 17 ATYPICAL SHAPE OF GAMMA HASEEB ON NOTED. UNABLE TO DEFINITIVELY DETERMINE THE PRESENCE OF ATYPICAL BANDS. SUGGEST FOLLOW-UP IN 6-9 MONTHS IF PATIENT'S SYMPTOMS WARRANT. 18 REV'D BY Reji AMATO 19 Performed at: RN - [facility] [address] [id number] Audio Production Instructor: Heide Lr MD, Phone: [phone] Units are mL/min/1.73 m2 Chronic Kidney Disease Staging per NKF: Stage I & II GFR >=60 Normal to Mildly Decreased Stage III GFR 30-59 Moderately Decreased Stage IV GFR 15-29 Severely Decreased Stage V GFR <15 Very Little GFR Left ESRD GFR <15 on TELECOMMUNICATIONS MANAGER Procedures Description No Information Available Medical Devices Description No Information Available Encounters Description No Information Available Assessments Date Code Description Provider 04/01/2021 R05 Caitlin watkins MD 04/01/2021 E11.9 Type 2 diabetes mellitus without complications Rita Rose MD 04/01/2021 F41.9 Anxiety disorder, unspecified An antolin Rose MD 03/13/2021 E11.9 Type 2 diabetes mellitus without complications Rita Rose MD 03/13/2021 R05 Caitlin watkins MD 03/13/2021 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 * E11.9 Type 2 diabetes mellitus without complications* Recommendations:* Symptoms improved. Labs from last visit reviewed, they are acceptable except glucose was elevated and insulin was adjusted and sugars are doing better now. She is rescheduled for surgery next week and she is stable enough to proceed with surgery next week. * F41.9 Anxiety disorder, unspecified* Recommendations:* The patient with severe anxiety. She was given refills on alprazolam. She is following up with . * All * Follow up:* 3 months. Functional Status Functional Condition Comment Date Status Glasses Active Mental Status Description No Information Available Referrals Description No Information Available
--- OUTSIDE RECORDS SUMMARY | 2021-04-07 10:40 | CCD ---
Author Author [employer] Organization [employer] Address Unknown Phone Unavailable Care Team Providers Care Stiff Neck Loader Name Role Phone Jeronimo Ty Unavailable PROBLEMS ALLERGIES No Known Allergies ENCOUNTERS from 1965 to 2021-03-18 IMMUNIZATIONS No Information SOCIAL HISTORY REASON FOR REFERRAL No Information VITAL SIGNS MEDICATIONS PROCEDURES No Information RESULTS No Results REASON FOR VISIT MEDICAL (GENERAL) HISTORY Goals Section Health Concerns MEDICAL EQUIPMENT No Information MENTAL STATUS FUNCTIONAL STATUS ASSESSMENTS No Information PLAN OF TREATMENT Insurance Providers
--- OUTSIDE RECORDS SUMMARY | 2021-04-07 10:40 | CCD | Continuity of Care Document ---
Author Author Rina ROSE MD Organization Unknown Address [address] [place] [address] Phone [phone] Care Team Providers Care Television Program Director Name Role Phone Rita Rose MD AUTM [phone] [facility] Gastroenterology AUTM [phone] Erika Chandra AUTM [phone] [facility] [address] [facility] AUTM [phone] [facility] Behavioral Health AUTM [phone] Braulio Figueroa MD AUTM [phone] [facility] AUTM [facility] Breast Surgery; DR. Duarte AUTM Problems Active [...] 12/30/2019 Note: Diagnosed December 2019. ER and [place] posi tive. Her 2 negative. Ki67 10% [...] Carcinoma breast Rita Rose MD 02/12/2020 [place] 3/16" 31G X 5 mm Misc use with basaglar pen once daily. 100units Rita Rose MD 0 10/17/2019 Trazodone HCL 100mg Tablets 1 tab by mouth daily at bedtime take 1/2 tablet by mouth in the morning and one tablet in the [facility] Lacey Rose MD 09/26/2019 Fenofibrate Micronized [...] other day(otc) Unknown Calcium 500 + D3 [id number] Ta blets 2 daily by mouth Unknown [...] orally today then 1 tablet orally daily 6tacamlia best MD 02/27/2021 - 03/13/2021 Immunizations CPT Code Status Date Vaccine Lot # [id number] Given 05/22/2019 HepB Adult (Engerix/Recombiv ax) 1mL Vacc [id number] Given 05/22/2019 Influenza (>= 6 Months) P.F. Vaccine [id number] Given 12/20/2018 HepB Adult (Engerix/Recombiv ax) 1mL Vacc [id number] Given 12/20/2018 Pneumococcal 13(Prevnar 13) Vaccine [id number] 90046 Given 08/18/2018 HepB Adult (Engerix/Recombiv ax) 1mL [...] Test Result H/L Range Note Urinalysis 03/13/2021 [facility] Urinalysis (SEE NOTE) 1, 2 Source R Color yellow Normal: Yellow Clarity clear Normal: Clear Spec [place] 1.010 1.001 - 1.030 pH 6 5 - 9 Glucose NORM Normal: Negative Bilirubin NEG Normal: Negative Ketone NEG Normal: Negative Protein 30 Normal: Negative Nitrite NEG Normal: Negative Blood NEG Normal: Negative Leuk Est NEG Normal: Negative Urobilinogen NOR less than 1.0 mg/dL Microscopic Not Indicate Cuture Urine 03/13/2021 [facility] Culture Urine (SEE NOTE) 3 Laboratory test finding 03/13/2021 [facility] Hgba1c 8.2 % High 4.4 - 6.1 4 CBC With Differential 03/06/2021 [facility] White Blood Count 8.5 10 Normal 4.0-10.0 [...] 36.0-66.0 Lymph % 26.5 % Normal 24.0-44.0 [place] % 6.8 % Normal 2.0-8.0 Eos % 1.9 % Normal 0.0-3.0 Baso % 0.9 % Normal 0.0-1.0 Immature Granulocyte % 0.9 % Normal 0-3.0 Nucleated Red Blood Cell % 0.0 % Normal 0-0 Neutrophils # 5.3 10 Normal 1.5-8.5 Lymph # 2.3 10 Normal 1.5-5.0 [place] # 0.6 10 Normal 0.0-0.8 Eos # 0.2 10 Normal 0.0-0.5 Baso # 0.1 10 Normal 0.0-0.2 Comprehensive Metabolic Profil 03/06/2021 [facility] Glucose, Fasting 270 mg/dL High 70-100 Blood [...] Low 1.2-2.2 Total Iron Binding Capacit 03/06/2021 [facility] Iron (Fe) 55 g/dL Normal 50-170 Total Iron Binding Capacity 363 g/dL Normal 250-450 Percent Saturation 15.2 % Normal 13.2-45.0 Laboratory test finding 03/06/2021 [facility] Ferritin 37 NG/ML Normal 8-252 Laboratory test finding 12/09/2020 [facility] Bedside Glucose 160 mg/dL High 70-105 CBC With Differential 11/26/2020 [facility] White Blood Count 11.2 10 High 4.0-10.0 [...] 36.0-66.0 Lymph % 15.1 % Low 24.0-44.0 [place] % 6.7 % Normal 2.0-8.0 Eos % 1.6 % Normal 0.0-3.0 Baso % 0.7 % Normal 0.0-1.0 Immature Granulocyte % 0.9 % Normal 0-3.0 Nucleated Red Blood Cell % 0.0 % Normal 0-0 Neutrophils # 8.4 10 Normal 1.5-8.5 Lymph # 1.7 10 Normal 1.5-5.0 [place] # 0.8 10 Normal 0.0-0.8 Eos # 0.2 10 Normal 0.0-0.5 Baso # 0.1 10 Normal 0.0-0.2 Laboratory test finding 11/26/2020 [facility] Estradiol < 19.0 pg/mL Normal 6 FSH & LH Eval 11/26/2020 [facility] Follicle Stimulating Hormone 120.4 mIU/mL Normal 7 Luteinizing Hormone 52.8 mIU/mL Normal 8 Laboratory test finding 11/26/2020 [facility] Ferritin 38 NG/ML Normal 8-252 Total Iron Binding Capacit 11/26/2020 [facility] Iron (Fe) 47 g/dL Low 50-170 Total Iron Binding Capacity 361 g/dL Normal 250-450 Percent Saturation 13.0 % Low 13.2-45.0 Comprehensive Metabolic Profil 11/26/2020 [facility] Glucose, Fasting 204 mg/dL High 70-100 Blood [...] Ratio 0.8 Low 1.2-2.2 Prothrombin Time/Inr 11/06/2020 [facility] Prothrombin Time 12.7 seconds Normal 12.5-14.3 Inr 0.93 Normal 10 Laboratory test finding 11/06/2020 [facility] Immunoglobulin A 250.0 mg/dL Normal 70-400 Alpha Fetoprotein Tumor Quant < 1.3 NG/ML Normal <8.1 11 Tissue Transglutaminase IgA <2 U/mL Normal 0-3 12 Creatinine With GFR 11/06/2020 [facility] Creatinine For GFR 0.72 mg/dL Normal 0.55-1.30 Glomerular Filtration Rate > 60.0 Normal >51 1 3 Laboratory test finding 11/06/2020 [facility] Blood Urea Nitrogen 9 mg/dL Normal 7-18 Liver Profile 11/06/2020 [facility] Ast/Sgot 35 U/L Normal 7-37 Alt/SGPT 61 U/L Normal 12-78 Alkaline Phosphatase 93 U/L Normal 45-117 Bilirubin,Total 0.2 mg/dL Normal 0.2-1.0 Bilirubin,Direct < 0.1 mg/dL Normal 0.0-0.2 Total Protein 7.4 GM/DL Normal 6.4-8.2 Albumin 3.9 GM/DL Normal 3.2-5.2 Albumin/Globulin Ratio 1.1 Low 1.2-2.2 Comprehensive Metabolic Profil 11/04/2020 [facility] Glucose, Fasting 128 mg/dL High 70-100 Blood [...] 1.0 Low 1.2-2.2 Laboratory test finding 11/04/2020 [facility] PTH Intact 13.3 pg/mL Low 18.5-88.0 Immunotyping (Immunofixation) Serum (If 11/04/2020 [facility] It Serum Interpretation SEE COMMENT Normal 15 Its Pathologist Review REV'D BY O ADJAP <SEE NOTE> Normal 16 Serum Protein Electrophoresis 11/04/2020 [facility] Albumin % 57.2 % Normal 55.8-66.1 Lhjnn-1-Mbulexbm % 3.6 % Normal 2.9-4.9 Crrpu-2-Gycbcokga % 10.8 % Normal 7.1-11.8 Fzmo-9-Ofjcrosvl % 6.5 % Normal 4.7-7.2 Xffv-0-Xzaqojvzu % 5.6 % Normal 3.2-6.5 Gamma Globulin % 16.3 % Normal 11.1-18.8 Albumin 4.29 GM/DL Normal 3.29-5.55 Rzahn-9-Uxwypmumo 0.27 GM/DL Normal 0.17-0.41 Naqdh-8-Swwnfjife 0.81 GM/DL Normal 0.42-0.99 Fnus-7-Pkruvhrpw 0.49 GM/DL Normal 0.28-0.60 Uimd-4-Rdnzhxbso 0.42 GM/DL Normal 0.19-0.55 Gamma Globulins 1.22 GM/DL Normal 0.65-1.58 Total Protein 7.5 GM/DL Normal 6.4-8.2 Spep Interpretation SEE COMMENT Normal 17 Spep Pathologist Review REV'D BY O ANN MARIE <SEE NOTE> Normal 18 Free [place] & Lambda LT Chains 11/04/2020 [facility] Free [place] Light Chains Serum 32.0 mg/L High 3.3-19.4 Free Lambda Light Chains Serum 27.5 mg/L High 5.7-26.3 Olds/Lambda Ratio Serum 1.16 Normal 0.26-1.65 19 CBC With Differential 10/27/2020 [facility] White Blood Count 10.4 10 High 4.0-10.0 [...] 36.0-66.0 Lymph % 35.7 % Normal 24.0-44.0 [place] % 6.4 % Normal 2.0-8.0 Eos % 1.8 % Normal 0.0-3.0 Baso % 1.0 % Normal 0.0-1.0 Immature Granulocyte % 0.6 % Normal 0-3.0 Nucleated Red Blood Cell % 0.0 % Normal 0-0 Neutrophils # 5.7 10 Normal 1.5-8.5 Lymph # 3.7 10 Normal 1.5-5.0 [place] # 0.7 10 Normal 0.0-0.8 Eos # 0.2 10 Normal 0.0-0.5 Baso # 0.1 10 Normal 0.0-0.2 Comprehensive Metabolic Profil 10/27/2020 [facility] Glucose, Fasting 91 mg/dL Normal 70-100 Blood [...] Low 1.2-2.2 Total Iron Binding Capacit 10/27/2020 [facility] Iron (Fe) 63 g/dL Normal 50-170 Total Iron Binding Capacity 412 g/dL Normal 250-450 Percent Saturation 15.3 % Normal 13.2-45.0 Laboratory test finding 10/27/2020 [facility] Ferritin 34 NG/ML Normal 8-252 1 {SOURCE: Random Void~NURSE COLLECTED? N {SPECIMEN TYPE: RANDOM 2 URINALYSIS 3 _CULTURE URINE_ ^$[id number] ^^[id number] $$869058 ^^760198 $$594303 $$898440 $$102360 $$164898 $$601851 $$114069 $$352399 $$956397 $$335336 $$736696 $$247186 $$209838 $$616940 $$300492 $$969651 $$789517 $$084285 $$374479 $$610538 $$440404 $$384619 $$876473 $$369406 ^^702409 $$009977 $$[id number] $$617944 -- Continued on next page -- Patient: BHARATH Villatoro Order: [id number] Page 2 Culture: CULTURE URINE Status: Final -- Continued on next page -- Patient: BHARATH Villatoro Order: [id number] Page 2 Culture: CULTURE URINE Status: Prelim $$[id number] $$[id number] REPORTED DATE/TIME: 03/17/2021 16:07 Culture: CULTURE URINE Status: Final Urine Culture,Comprehensive: P1 No growth in 36 - 48 hours. Previous result entered on 03/16/2021 07:07 ET No growth after 18-24 hours. P1 Test performed by: [facility] #: [id number] [address] [place] [address] Avenue [id number] [facility] [id number] Ramp Lead : Be Wylie MD NPI #: Hand Molder And Caster : 03/17/21.0722.XMT.SENT REF 03/17/21.1906.XMT.SENT REF 4 {A1] {HB] 5 Units are mL/min/1.73 m2 Chronic Kidney Disease Staging per NKF: Stage I & II GFR >=60 Normal to Mildly Decreased Stage III GFR 30-59 Moderately Decreased Stage IV GFR 15-29 Severely Decreased Stage V GFR <15 Very Little GFR Left ESRD GFR <15 on STRIPPER SHOVEL OPERATOR 6 NORMAL MENSTRUATING FEMALES: FOLLICULAR PHASE 19.5-144.2 PG/ML MID CYCLE PEAK 63.9-356.7 PG/ML LUTEAL PHASE 55.8-214.2 PG/ML POST MENOPAUSAL FEMALES <32.2 PG/ML (UNTREATED) THE eESTRADIOL2 ASSAY IS PERFORMED ON THE Mobile Captain[employer] BY CHEMILUMINESCENCE AND SHOULD NOT BE COMPARED [...] Little GFR Left ESRD GFR <15 on STRIPPER SHOVEL OPERATOR 10 THERAPUTIC HUMAN INR VALUES INDICATIONS NORMAL RANGES PROPHYLAXIS/TREATMENT OF: VENOUS THROMBOSIS 2.0-3.0 PULMONARY EMBOLISM 2.0-3.0 PREVENTION OF SYSTEMIC EMBOLISM FROM: TISSUE HEART VALVES 2.0-3.0 ACUTE MYOCARDIAL INFARCTION 2.0-3.0 VALVULAR HEART DISEASE 2.0-3.0 ATRIAL FIBRILLATION 2.0-3.0 MECHANICAL VALVES(HIGH RISK) 2.5-3.5 RECURRENT MYOCARDIAL INFARCTION 2.5-3.5 11 THE AFP ASSAY IS PERFORMED O N THE [employer] BY CHEMILUMINESCENCE AND SHOULD NOT BE COMPARED [...] for gluten sensitive enteropathy. Performed at: - [address] [id number] Hand Molder And Caster: Heide Lr MD, Phone: [phone] Units are mL/min/1.73 m2 Chronic Kidney Disease Staging per NKF: Stage I & II GFR >=60 Normal to Mildly Decreased Stage III GFR 30-59 Moderately Decreased Stage IV GFR 15-29 Severely Decreased Stage V GFR <15 Very Little GFR Left ESRD GFR <15 on STRIPPER SHOVEL OPERATOR 14 Units are mL/min/1.73 m2 Chronic Kidney Disease Staging per NKF: Stage I & II GFR >=60 Normal to Mildly Decreased Stage III GFR 30-59 Moderately Decreased Stage IV GFR 15-29 Severely Decreased Stage V GFR <15 Very Little GFR Left ESRD GFR <15 on STRIPPER SHOVEL OPERATOR 15 ATYPICAL SHAPE OF GAMMA HASEEB ON [...] AMATO 19 Performed at: RN - [facility] [address] [id number] Hand Molder And Caster: Heide Lr MD, Phone: [phone] Units are mL/min/1.73 m2 Chronic Kidney Disease Staging per NKF: Stage I & II GFR >=60 Normal to Mildly Decreased Stage III GFR 30-59 Moderately Decreased Stage IV GFR 15-29 Severely Decreased Stage V GFR <15 Very Little GFR Left ESRD GFR <15 on STRIPPER SHOVEL OPERATOR Procedures Description No Information Available Medical Devices [...]
--- OUTSIDE RECORDS SUMMARY | 2021-04-07 10:40 | CCD | Continuity of Care Document ---
Author Author Rina ROSE MD Organization Unknown Address [address] [place] [address] Phone [phone] Care Team Providers Care Senior Mechanical Engineer Name Role Phone Rita Rose MD AUTM [phone] [facility] Gastroenterology AUTM [phone] Erika Chandra AUTM [phone] [facility] AUTM [facility] Behavioral Health AUTM [phone] Braulio Figueroa MD AUTM [phone] [facility] AUTM [facility] Breast Surgery; DR. Duarte AUTM Problems [...] 12/30/2019 Note: Diagnosed December 2019. ER and [place] posi tive. Her 2 negative. Ki67 10% [...] Carcinoma breast Rita Rose MD 02/12/2020 [place] 3/16" 31G X 5 mm Misc use with basaglar pen once daily. 100units Rita Rose MD 0 10/17/2019 Trazodone HCL 100mg Tablets 1 tab by mouth daily at bedtime take 1/2 tablet by mouth in the morning and one tablet in the evening will be prescribed by at [facility] 90tabs Lacey Rose MD 09/26/2019 Fenofibrate [...] other day(otc) Unknown Calcium 500 + D3 [id number] Ta blets 2 daily by mouth Unknown Exemestane 25mg Tablets Unknown Freestyle Lite Test Strips test blood sugars twice daily 200unisable Rose MD 000 Desvenlafaxine Succinate ER 25mg [...] CPT Code Status Date Vaccine Lot # [id number] Given 05/22/2019 HepB Adult (Engerix/Recombiv ax) 1mL Vacc [id number] Given 05/22/2019 Influenza (>= 6 Months) P.F. Vaccine [id number] Given 12/20/2018 HepB Adult (Engerix/Recombiv ax) 1mL Vacc [id number] 15700 Given 12/20/2018 Pneumococcal 13(Prevnar 13) Vaccine [id number] 78699 Given 08/18/2018 HepB Adult (Engerix/Recombiv ax) 1mL [...] Test Result H/L Range Note Urinalysis 03/13/2021 [facility] Urinalysis (SEE NOTE) 1, 2 Source R Color yellow Normal: Yellow Clarity clear Normal: Clear Spec [place] 1.010 1.001 - 1.030 pH 6 5 - 9 Glucose NORM Normal: Negative Bilirubin NEG Normal: Negative Ketone NEG Normal: Negative Protein 30 Normal: Negative Nitrite NEG Normal: Negative Blood NEG Normal: Negative Leuk Est NEG Normal: Negative Urobilinogen NOR less than 1.0 mg/dL Microscopic Not Indicate Cuture Urine 03/13/2021 [facility] Culture Urine (SEE NOTE) 3 Laboratory test finding 03/13/2021 [facility] Hgba1c 8.2 % High 4.4 - 6.1 4 CBC With Differential 03/06/2021 [facility] White Blood Count 8.5 10 Normal 4.0-10.0 [...] 36.0-66.0 Lymph % 26.5 % Normal 24.0-44.0 [place] % 6.8 % Normal 2.0-8.0 Eos % 1.9 % Normal 0.0-3.0 Baso % 0.9 % Normal 0.0-1.0 Immature Granulocyte % 0.9 % Normal 0-3.0 Nucleated Red Blood Cell % 0.0 % Normal 0-0 Neutrophils # 5.3 10 Normal 1.5-8.5 Lymph # 2.3 10 Normal 1.5-5.0 [place] # 0.6 10 Normal 0.0-0.8 Eos # 0.2 10 Normal 0.0-0.5 Baso # 0.1 10 Normal 0.0-0.2 Comprehensive Metabolic Profil 03/06/2021 [facility] Glucose, Fasting 270 mg/dL High 70-100 Blood [...] Low 1.2-2.2 Total Iron Binding Capacit 03/06/2021 [facility] Iron (Fe) 55 g/dL Normal 50-170 Total Iron Binding Capacity 363 g/dL Normal 250-450 Percent Saturation 15.2 % Normal 13.2-45.0 Laboratory test finding 03/06/2021 [facility] Ferritin 37 NG/ML Normal 8-252 Laboratory test finding 12/09/2020 [facility] Bedside Glucose 160 mg/dL High 70-105 CBC With Differential 11/26/2020 [facility] White Blood Count 11.2 10 High 4.0-10.0 [...] 36.0-66.0 Lymph % 15.1 % Low 24.0-44.0 [place] % 6.7 % Normal 2.0-8.0 Eos % 1.6 % Normal 0.0-3.0 Baso % 0.7 % Normal 0.0-1.0 Immature Granulocyte % 0.9 % Normal 0-3.0 Nucleated Red Blood Cell % 0.0 % Normal 0-0 Neutrophils # 8.4 10 Normal 1.5-8.5 Lymph # 1.7 10 Normal 1.5-5.0 [place] # 0.8 10 Normal 0.0-0.8 Eos # 0.2 10 Normal 0.0-0.5 Baso # 0.1 10 Normal 0.0-0.2 Laboratory test finding 11/26/2020 [facility] Estradiol < 19.0 pg/mL Normal 6 FSH & LH Eval 11/26/2020 [facility] Follicle Stimulating Hormone 120.4 mIU/mL Normal 7 Luteinizing Hormone 52.8 mIU/mL Normal 8 Laboratory test finding 11/26/2020 [facility] Ferritin 38 NG/ML Normal 8-252 Total Iron Binding Capacit 11/26/2020 [facility] Iron (Fe) 47 g/dL Low 50-170 Total Iron Binding Capacity 361 g/dL Normal 250-450 Percent Saturation 13.0 % Low 13.2-45.0 Comprehensive Metabolic Profil 11/26/2020 [facility] Glucose, Fasting 204 mg/dL High 70-100 Blood [...] Ratio 0.8 Low 1.2-2.2 Prothrombin Time/Inr 11/06/2020 [facility] Prothrombin Time 12.7 seconds Normal 12.5-14.3 Inr 0.93 Normal 10 Laboratory test finding 11/06/2020 [facility] Immunoglobulin A 250.0 mg/dL Normal 70-400 Alpha Fetoprotein Tumor Quant < 1.3 NG/ML Normal <8.1 11 Tissue Transglutaminase IgA <2 U/mL Normal 0-3 12 Creatinine With GFR 11/06/2020 [facility] Creatinine For GFR 0.72 mg/dL Normal 0.55-1.30 Glomerular Filtration Rate > 60.0 Normal >51 1 3 Laboratory test finding 11/06/2020 [facility] Blood Urea Nitrogen 9 mg/dL Normal 7-18 Liver Profile 11/06/2020 [facility] Ast/Sgot 35 U/L Normal 7-37 Alt/SGPT 61 U/L Normal 12-78 Alkaline Phosphatase 93 U/L Normal 45-117 Bilirubin,Total 0.2 mg/dL Normal 0.2-1.0 Bilirubin,Direct < 0.1 mg/dL Normal 0.0-0.2 Total Protein 7.4 GM/DL Normal 6.4-8.2 Albumin 3.9 GM/DL Normal 3.2-5.2 Albumin/Globulin Ratio 1.1 Low 1.2-2.2 Comprehensive Metabolic Profil 11/04/2020 [facility] Glucose, Fasting 128 mg/dL High 70-100 Blood [...] 1.0 Low 1.2-2.2 Laboratory test finding 11/04/2020 [facility] PTH Intact 13.3 pg/mL Low 18.5-88.0 Immunotyping (Immunofixation) Serum (If 11/04/2020 [facility] It Serum Interpretation SEE COMMENT Normal 15 Its Pathologist Review REV'D BY O ADJAP <SEE NOTE> Normal 16 Serum Protein Electrophoresis 11/04/2020 [facility] Albumin % 57.2 % Normal 55.8-66.1 Mmpcm-8-Szqyoxje % 3.6 % Normal 2.9-4.9 Vbvia-0-Pgwkgrnnu % 10.8 % Normal 7.1-11.8 Grhh-6-Jvzvxbuel % 6.5 % Normal 4.7-7.2 Hwrf-4-Hkrorsdvy % 5.6 % Normal 3.2-6.5 Gamma Globulin % 16.3 % Normal 11.1-18.8 Albumin 4.29 GM/DL Normal 3.29-5.55 Osbys-1-Vbwvdsdjo 0.27 GM/DL Normal 0.17-0.41 Odftc-3-Ycldlxctj 0.81 GM/DL Normal 0.42-0.99 Xbjd-6-Avaikbked 0.49 GM/DL Normal 0.28-0.60 Lazy-0-Zwptslhvc 0.42 GM/DL Normal 0.19-0.55 Gamma Globulins 1.22 GM/DL Normal 0.65-1.58 Total Protein 7.5 GM/DL Normal 6.4-8.2 Spep Interpretation SEE COMMENT Normal 17 Spep Pathologist Review REV'D BY O ANN MARIE <SEE NOTE> Normal 18 Free [place] & Lambda LT Chains 11/04/2020 [facility] Free [place] Light Chains Serum 32.0 mg/L High 3.3-19.4 Free Lambda Light Chains Serum 27.5 mg/L High 5.7-26.3 [place]/Lambda Ratio Serum 1.16 Normal 0.26-1.65 19 CBC With Differential 10/27/2020 [facility] White Blood Count 10.4 10 High 4.0-10.0 [...] 36.0-66.0 Lymph % 35.7 % Normal 24.0-44.0 [place] % 6.4 % Normal 2.0-8.0 Eos % 1.8 % Normal 0.0-3.0 Baso % 1.0 % Normal 0.0-1.0 Immature Granulocyte % 0.6 % Normal 0-3.0 Nucleated Red Blood Cell % 0.0 % Normal 0-0 Neutrophils # 5.7 10 Normal 1.5-8.5 Lymph # 3.7 10 Normal 1.5-5.0 [facility] # 0.7 10 Normal 0.0-0.8 Eos # 0.2 10 Normal 0.0-0.5 Baso # 0.1 10 Normal 0.0-0.2 Comprehensive Metabolic Profil 10/27/2020 [facility] Glucose, Fasting 91 mg/dL Normal 70-100 Blood [...] Low 1.2-2.2 Total Iron Binding Capacit 10/27/2020 [facility] Iron (Fe) 63 g/dL Normal 50-170 Total Iron Binding Capacity 412 g/dL Normal 250-450 Percent Saturation 15.3 % Normal 13.2-45.0 Laboratory test finding 10/27/2020 [facility] Ferritin 34 NG/ML Normal 8-252 1 {SOURCE: Random Void~NURSE COLLECTED? N {SPECIMEN TYPE: RANDOM 2 URINALYSIS 3 _CULTURE URINE_ ^$446192 ^^325174 $$299718 ^^825093 $$766820 $$761674 $$177818 $$749013 $$996167 $$227683 $$029764 $$683526 $$917442 $$655045 $$223821 $$837629 $$529331 $$717855 $$834339 $$839257 $$020586 $$008273 $$720596 $$580705 $$540060 $$022103 $$741717 ^^690543 $$231832 $$[id number] $$[id number] -- Continued on next page -- Patient: BHARATH Villatoro Order: [id number] Page 2 Culture: CULTURE URINE Status: Final -- Continued on next page -- Patient: BHARATH Villatoro Order: [id number] Page 2 Culture: CULTURE URINE Status: Prelim $$[id number] $$[id number] REPORTED DATE/TIME: 03/17/2021 16:07 Culture: CULTURE URINE Status: Final Urine Culture,Comprehensive: P1 No growth in 36 - 48 hours. Previous result entered on 03/16/2021 07:07 ET No growth after 18-24 hours. P1 Test performed by: [facility] #: [id number] [address] [place] [address] Avenue [id number] [facility] [address] Manager Telemetry : Be Wylie MD NPI #: Cloth Shrinking Supervisor : 03/17/21.0722.XMT.SENT REF 03/17/21.1906.XMT.SENT REF 4 {A1] {HB] 5 Units are mL/min/1.73 m2 Chronic Kidney Disease Staging per NKF: Stage I & II GFR >=60 Normal to Mildly Decreased Stage III GFR 30-59 Moderately Decreased Stage IV GFR 15-29 Severely Decreased Stage V GFR <15 Very Little GFR Left ESRD GFR <15 on HOUSEKEEPING LAUNDRY WORKER 6 NORMAL MENSTRUATING FEMALES: FOLLICULAR PHASE 19.5-144.2 PG/ML MID CYCLE PEAK 63.9-356.7 PG/ML LUTEAL PHASE 55.8-214.2 PG/ML POST MENOPAUSAL FEMALES <32.2 PG/ML (UNTREATED) THE eESTRADIOL2 ASSAY IS PERFORMED ON THE [employer] BY CHEMILUMINESCENCE AND SHOULD NOT BE COMPARED [...] Little GFR Left ESRD GFR <15 on HOUSEKEEPING LAUNDRY WORKER 10 THERAPUTIC HUMAN INR VALUES INDICATIONS NORMAL RANGES PROPHYLAXIS/TREATMENT OF: VENOUS THROMBOSIS 2.0-3.0 PULMONARY EMBOLISM 2.0-3.0 PREVENTION OF SYSTEMIC EMBOLISM FROM: TISSUE HEART VALVES 2.0-3.0 ACUTE MYOCARDIAL INFARCTION 2.0-3.0 VALVULAR HEART DISEASE 2.0-3.0 ATRIAL FIBRILLATION 2.0-3.0 MECHANICAL VALVES(HIGH RISK) 2.5-3.5 RECURRENT MYOCARDIAL INFARCTION 2.5-3.5 11 THE AFP ASSAY IS PERFORMED O N THE [employer] BY CHEMILUMINESCENCE AND SHOULD NOT BE COMPARED [...] for gluten sensitive enteropathy. Performed at: - [address] [id number] Cloth Shrinking Supervisor: Heide Lr MD, Phone: [phone] Units are mL/min/1.73 m2 Chronic Kidney Disease Staging per NKF: Stage I & II GFR >=60 Normal to Mildly Decreased Stage III GFR 30-59 Moderately Decreased Stage IV GFR 15-29 Severely Decreased Stage V GFR <15 Very Little GFR Left ESRD GFR <15 on HOUSEKEEPING LAUNDRY WORKER 14 Units are mL/min/1.73 m2 Chronic Kidney Disease Staging per NKF: Stage I & II GFR >=60 Normal to Mildly Decreased Stage III GFR 30-59 Moderately Decreased Stage IV GFR 15-29 Severely Decreased Stage V GFR <15 Very Little GFR Left ESRD GFR <15 on HOUSEKEEPING LAUNDRY WORKER 15 ATYPICAL SHAPE OF GAMMA HASEEB ON NOTED. UNABLE TO DEFINITIVELY DETERMINE THE PRESENCE OF ATYPICAL BANDS. SUGGEST FOLLOW-UP IN 6-9 MONTHS IF PATIENT'S SYMPTOMS WARRANT. 16 REV'D BY Reji AMATO 17 ATYPICAL SHAPE OF GAMMA HASEEB ON NOTED. UNABLE TO DEFINITIVELY DETERMINE THE PRESENCE OF ATYPICAL BANDS. SUGGEST FOLLOW-UP IN 6-9 MONTHS IF PATIENT'S SYMPTOMS WARRANT. 18 REV'D BY Reji MAATO 19 Performed at: RN - [facility] [address] [id number] Cloth Shrinking Supervisor: Heide Lr MD, Phone: [phone] Units are mL/min/1.73 m2 Chronic Kidney Disease Staging per NKF: Stage I & II GFR >=60 Normal to Mildly Decreased Stage III GFR 30-59 Moderately Decreased Stage IV GFR 15-29 Severely Decreased Stage V GFR <15 Very Little GFR Left ESRD GFR <15 on HOUSEKEEPING LAUNDRY WORKER Procedures Description No Information Available Medical Devices [...]
--- OUTSIDE RECORDS SUMMARY | 2021-04-07 10:40 | CCD | Continuity of Care Document ---
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 Duarte AUTM Problems Active [...] 7 mm hepatic flexure polyp Diverticular disease Rtia Rose MD Onset: 10/04/2018 Note: Mild sigmoed [...] 12/30/2019 Note: Diagnosed December 2019. ER and [place] posi tive. Her 2 negative. Ki67 10% [...] twice daily 14caps Rita Rose MD 03/13/2021 Prednisone 20mg Tablets 3 by mouth daily for 2 days. 2 by mouth daily for next 2 days. then 1 by mouth for 2 days. take in the morning. 12tabs Rita Rose MD 03/13/2021 Clonidine HCL 0.1mg Tablets take one tablet three times daily 90tabs Rita Rose MD 0 03/13/2021 Tessalon Perles 100mg Capsules 2 capsules by mouth three time per day as needed for cough 30daniels Rita Rose MD 03/13/2021 Albuterol Sulfate HFA 108(90Base) [...] Rose MD 05/15/2020 Amlodipine Besylate 10mg Tablets Take 1 Tablet By Mouth Once A Day 30tabs Rita Rose MD 05/15/2020 Ulticare Miscellaneous Use With Basaglar Pen Once Daily. 30units Rita Rose MD 04/16/2020 Mastectomy Bra/Prosthesis Dx- Left mastectomy for Carcinoma breast Rita Rose MD 02/12/2020 Pen [place] 3/16" 31G X 5 mm Misc use with basaglar pen once daily. 100units Rita Rose MD 0 10/17/2019 Trazodone HCL 100mg Tablets 1 tab by mouth daily at bedtime take 1/2 tablet by mouth in the morning and one tablet in the evening Will be prescribed by at [facility] 90tabs Pavel El MD 09/26/2019 Fenofibrate Micronized 67mg Capsul es take 1 capsule by mouth once a day 90caps Rita Rose MD 05/22/2019 Atorvastatin Calcium 40mg Tablets Take 1 Tablet By Mouth AT Bedtime 30tacamila Rose MD 08/18/2018 Nicotine Transdermal System Step 2 14mg/24HR Patches 24HR 1 patch to skin per day. Take off at night. 28saurabh Rose MD 07/28/2018 Metformin HCL 1000mg Tablets take 1 tablet by mouth twice a day 180tacamila Rose MD Gabapentin 300mg Capsules take 1 capsule by mouth three times a day 180capflores Rose MD Ferrousul 325(65Fe) mg Tablets 1 by mouth every other day(otc) Unknown Calcium 500 + D3 [id number] Ta blets 2 daily by mouth Unknown Exemestane 25mg Tablets Unknown Freestyle Lite Test Strips test blood sugars twice daily 200unisabel Rose MD 000 Desvenlafaxine Succinate ER 25mg Tablets ER 24HR Take One Tablet By Mouth Once A Day In The Morning Unknown Quetiapine Fumarate 25mg Tablets Unknown Alprazolam 1mg Tablets Unknown History Medications Nifedipine ER 30mg Tablets ER 24HR 1 by mouth dialy 30tacamila Rose MD 03/13/2021 - 03/13/2021 Azithromycin 250mg Tablets two tablets orally today then 1 tablet orally daily 6tabs Rita best MD 02/27/2021 - 03/13/2021 Trulicity 0.75mg/0.5 ML Solution Pen-Inject inject 0.75mg under the skin once weekly 2ml Rita Rose MD 09/25/2020 - 01/19/2021 Immunizations CPT Code Status Date Vaccine Lot # [id number] Given 05/22/2019 HepB Adult (Engerix/Recombiv ax) 1mL Vacc [id number] Given 05/22/2019 Influenza (>= 6 Months) P.F. Vaccine [id number] Given 12/20/2018 HepB Adult (Engerix/Recombiv ax) 1mL Vacc [id number] Given 12/20/2018 Pneumococcal 13(Prevnar 13) Vaccine [id number] Given 08/18/2018 HepB Adult (Engerix/Recombiv ax) 1mL Vacc [id number] Vital Signs Date Vital Result Comment 03/13/2021 9:35am BP Systolic 132 mmHg BP Diastolic 70 mmHg Heart Rate 72 /min Body Temperature 96.0 F Respiratory Rate 16 /min O2 % BldC Oximetry 97 % Weight 131.00 lb Weight 59.422 kg Height 62 inches 5'2" BMI (Body Mass Index) 24.0 kg/m2 BSA (Body Surface Area) 1.60 m2 09/24/2020 9:29am BP Systolic 160 mmHg BP Diastolic 90 mmHg Heart Rate 59 /min Body Temperature 97.4 F Respiratory Rate 16 /min O2 % BldC Oximetry 98 % Weight 133.25 lb Weight 60.442 kg Height 62 inches 5'2" BMI (Body Mass Index) 24.4 kg/m2 BSA (Body Surface Area) 1.61 m2 Results Test Acquired Date Facility Test Result H/L Range Note Urinalysis 03/13/2021 [facility] Urinalysis (SEE NOTE) 1, 2 Source R Color yellow Normal: Yellow Clarity clear Normal: Clear Spec Alpha 1.010 1.001 - 1.030 pH 6 5 - 9 Glucose NORM Normal: Negative Bilirubin NEG Normal: Negative Ketone NEG Normal: Negative Protein 30 Normal: Negative Nitrite NEG Normal: Negative Blood NEG Normal: Negative Leuk Est NEG Normal: Negative Urobilinogen NOR less than 1.0 mg/dL Microscopic Not Indicate Cuture Urine 03/13/2021 [facility] Culture Urine (SEE NOTE) 3 Laboratory test finding 03/13/2021 [facility] Hgba1c 8.2 % High 4.4 - 6.1 4 CBC With Differential 03/06/2021 [facility] White Blood Count 8.5 10 Normal [...] 36.0-66.0 Lymph % 26.5 % Normal 24.0-44.0 [place] % 6.8 % Normal 2.0-8.0 Eos % 1.9 % Normal 0.0-3.0 Baso % 0.9 % Normal 0.0-1.0 Immature Granulocyte % 0.9 % Normal 0-3.0 Nucleated Red Blood Cell % 0.0 % Normal 0-0 Neutrophils # 5.3 10 Normal 1.5-8.5 Lymph # 2.3 10 Normal 1.5-5.0 [place] # 0.6 10 Normal 0.0-0.8 Eos # 0.2 10 Normal 0.0-0.5 Baso # 0.1 10 Normal 0.0-0.2 Comprehensive Metabolic Profil 03/06/2021 [facility] Glucose, Fasting 270 mg/dL High 70-100 [...] Low 1.2-2.2 Total Iron Binding Capacit 03/06/2021 [facility] Iron (Fe) 55 g/dL Normal 50-170 Total Iron Binding Capacity 363 g/dL Normal 250-450 Percent Saturation 15.2 % Normal 13.2-45.0 Laboratory test finding 03/06/2021 [facility] Ferritin 37 NG/ML Normal 8-252 Laboratory test finding 12/09/2020 [facility] Bedside Glucose 160 mg/dL High 70-105 CBC With Differential 11/26/2020 [facility] White Blood Count 11.2 10 High [...] 36.0-66.0 Lymph % 15.1 % Low 24.0-44.0 [place] % 6.7 % Normal 2.0-8.0 Eos % 1.6 % Normal 0.0-3.0 Baso % 0.7 % Normal 0.0-1.0 Immature Granulocyte % 0.9 % Normal 0-3.0 Nucleated Red Blood Cell % 0.0 % Normal 0-0 Neutrophils # 8.4 10 Normal 1.5-8.5 Lymph # 1.7 10 Normal 1.5-5.0 [place] # 0.8 10 Normal 0.0-0.8 Eos # 0.2 10 Normal 0.0-0.5 Baso # 0.1 10 Normal 0.0-0.2 Comprehensive Metabolic Profil 11/26/2020 [facility] Glucose, Fasting 204 mg/dL High 70-100 Blood Urea Nitrogen 10 mg/dL Normal 7-18 Creatinine For GFR 0.87 mg/dL Normal 0.55-1.30 Glomerular Filtration Rate > 60.0 Normal >51 6 Sodium Level 137 mEq/L Normal 136-145 Potassium [...] 0.8 Low 1.2-2.2 Total Iron Binding Capacit 11/26/2020 [facility] Iron (Fe) 47 g/dL Low 50-170 Total Iron Binding Capacity 361 g/dL Normal 250-450 Percent Saturation 13.0 % Low 13.2-45.0 Laboratory test finding 11/26/2020 [facility] Ferritin 38 NG/ML Normal 8-252 FSH & LH Eval 11/26/2020 [facility] Follicle Stimulating Hormone 120.4 mIU/mL Normal 7 Luteinizing Hormone 52.8 mIU/mL Normal 8 Laboratory test finding 11/26/2020 [facility] Estradiol < 19.0 pg/mL Normal 9 Creatinine With GFR 11/06/2020 [facility] Creatinine For GFR 0.72 mg/dL Normal 0.55-1.30 Glomerular Filtration Rate > 60.0 Normal >51 1 0 Laboratory test finding 11/06/2020 [facility] Immunoglobulin A 250.0 mg/dL Normal 70-400 Alpha Fetoprotein Tumor Quant < 1.3 NG/ML Normal <8.1 11 Tissue Transglutaminase IgA <2 U/mL Normal 0-3 12 Liver Profile 11/06/2020 [facility] Ast/Sgot 35 U/L Normal 7-37 Alt/SGPT 61 U/L Normal 12-78 Alkaline Phosphatase 93 U/L Normal 45-117 Bilirubin,Total 0.2 mg/dL Normal 0.2-1.0 Bilirubin,Direct < 0.1 mg/dL Normal 0.0-0.2 Total Protein 7.4 GM/DL Normal 6.4-8.2 Albumin 3.9 GM/DL Normal 3.2-5.2 Albumin/Globulin Ratio 1.1 Low 1.2-2.2 Prothrombin Time/Inr 11/06/2020 [facility] Prothrombin Time 12.7 seconds Normal 12.5-14.3 Inr 0.93 Normal 13 Laboratory test finding 11/06/2020 [facility] Blood Urea Nitrogen 9 mg/dL Normal 7-18 Comprehensive Metabolic Profil 11/04/2020 [facility] Glucose, Fasting 128 mg/dL High 70-100 [...] 1.0 Low 1.2-2.2 Laboratory test finding 11/04/2020 [facility] PTH Intact 13.3 pg/mL Low 18.5-88.0 Immunotyping (Immunofixation) Serum (If 11/04/2020 [facility] It Serum Interpretation SEE COMMENT Normal 15 Its Pathologist Review REV'D BY O ADJAP <SEE NOTE> Normal 16 Serum Protein Electrophoresis 11/04/2020 [facility] Albumin % 57.2 % Normal 55.8-66.1 Nlkrf-6-Zjxufuyp % 3.6 % Normal 2.9-4.9 Ouxod-4-Sqaaswpmu % 10.8 % Normal 7.1-11.8 Lsqo-2-Jbkgcfzga % 6.5 % Normal 4.7-7.2 Oukg-3-Blinzofil % 5.6 % Normal 3.2-6.5 Gamma Globulin % 16.3 % Normal 11.1-18.8 Albumin 4.29 GM/DL Normal 3.29-5.55 Kpxdm-2-Ibfgirjdw 0.27 GM/DL Normal 0.17-0.41 Gsslo-0-Yuglgjidd 0.81 GM/DL Normal 0.42-0.99 Tcqr-7-Bkjevzjnx 0.49 GM/DL Normal 0.28-0.60 Vooo-2-Dketehynu 0.42 GM/DL Normal 0.19-0.55 Gamma Globulins 1.22 GM/DL Normal 0.65-1.58 Total Protein 7.5 GM/DL Normal 6.4-8.2 Spep Interpretation SEE COMMENT Normal 17 Spep Pathologist Review REV'D BY O ADJAP <SEE NOTE> Normal 18 Free Good Thunder & Lambda LT Chains 11/04/2020 [facility] Free Good Thunder Light Chains Serum 32.0 mg/L High 3.3-19.4 Free Lambda Light Chains Serum 27.5 mg/L High 5.7-26.3 Good Thunder/Lambda Ratio Serum 1.16 Normal 0.26-1.65 19 Comprehensive Metabolic Profil 10/27/2020 [facility] Glucose, Fasting 91 mg/dL Normal 70-100 [...] Ratio 1.0 Low 1.2-2.2 Laboratory test finding 10/27/2020 [facility] Ferritin 34 NG/ML Normal 8-252 Total Iron Binding Capacit 10/27/2020 [facility] Iron (Fe) 63 g/dL Normal 50-170 Total Iron Binding Capacity 412 g/dL Normal 250-450 Percent Saturation 15.3 % Normal 13.2-45.0 CBC With Differential 10/27/2020 [facility] White Blood Count 10.4 10 High [...] 36.0-66.0 Lymph % 35.7 % Normal 24.0-44.0 [place] % 6.4 % Normal 2.0-8.0 Eos % 1.8 % Normal 0.0-3.0 Baso % 1.0 % Normal 0.0-1.0 Immature Granulocyte % 0.6 % Normal 0-3.0 Nucleated Red Blood Cell % 0.0 % Normal 0-0 Neutrophils # 5.7 10 Normal 1.5-8.5 Lymph # 3.7 10 Normal 1.5-5.0 [place] # 0.7 10 Normal 0.0-0.8 Eos # 0.2 10 Normal 0.0-0.5 Baso # 0.1 10 Normal 0.0-0.2 CBC No Diff 09/24/2020 [facility] CBC No Diff (SEE NOTE) 21, 22 WBC 7.9 10^3/uL 4.2 - 11.0 RBC 4.46 10^6/uL 4.20 - 5.40 Hemoglobin 13.0 g/dL 12.0 - 16.0 Hematocrit 39.7 % 37.0 - 47.0 MCV 89.0 fL 81.0 - 101 MCH 29.1 pg 27.0 - 34.0 MCHC 32.7 g/dL 31.0 - 36.0 RDW 13.2 % 11.5 - 14.5 Platelets 368 10^3/uL 150 - 450 MPV 9.2 fL 7.4 - 10.4 Laboratory test finding 09/24/2020 [facility] Hgba1c 7.6 % High 4.4 - 6.1 23 Comprehensive Metabolic Panel 09/24/2020 [facility] ospital Comprehensive Metabo (SEE NOTE) 24 Sodium 135 mEq/L 134 - 153 Potassium 4.6 mEq/L 3.6 - 5.0 Chloride 101 mEq/L 98 - 107 Co2 24 mEq/L 22 - 30 Glucose 159 mg/dL High 70 - 99 BUN 13 mg/dL 7 - 21 Creatinine 0.8 mg/dL 0.7 - 1.5 BUN/Creat 16 8 - 27 Total Protein 7.9 g/dL 6.3 - 8.2 Albumin 4.3 g/dL 3.9 - 5.0 Globulin 3.6 GM/DL High 2.4 - 3.2 A/G Ratio 1.2 0.8 - 2.0 Calcium 9.7 mg/dL 8.4 - 10.2 Total Bili <0.7 mg/dL 0.2 - 1.3 Alkaline Phos 77 U/L 38 - 126 Sgot/Ast 17 U/L 5 - 40 SGPT/Alt 18 U/L 7 - 56 Anion Gap 10.0 mmol/L 8.0 - 16.0 Age 55 yrs Non-Aa GFR >60 mL/min Afr Amer GFR >60 mL/min 25 Laboratory test finding 09/24/2020 [facility] TSH Highly Sensitive 1.26 uIU/mL 0.47 - 5.01 Iron 62 g/dL 42 - 135 Hep C Antibody With Reflex Quant PCR 0.1 s/coratio 0.0 -0.9 HIV Panel 09/24/2020 [facility] HIV Screen 4thGeneration wRfx Non Reactive Non Reacti ve Laboratory test finding 09/24/2020 [facility] Syphilis NON-REACTIVE Normal:Non Reactive 1 {SOURCE: Random Void~NURSE COLLECTED? N {SPECIMEN TYPE: RANDOM 2 URINALYSIS 3 _CULTURE URINE_ ^$[id number] ^^[id number] $$390352 ^^[id number] $$[id number] $$[id number] $$[id number] $$737283 $$945078 $$234979 $$543241 $$811989 $$597226 $$778488 $$563923 $$955375 $$426031 $$420971 $$801995 $$608204 $$757350 $$164566 $$980454 $$625967 $$336013 $$858544 $$167415 ^^541353 $$388603 $$192722 $$984444 -- Continued on next page -- Patient: BHARATH Villatoro Order: [id number] Page 2 Culture: CULTURE URINE Status: Final -- Continued on next page -- Patient: BHARATH Villatoro Order: [id number] Page 2 Culture: CULTURE URINE Status: Prelim $$[id number] $$[id number] REPORTED DATE/TIME: 03/17/2021 16:07 Culture: CULTURE URINE Status: Final Urine Culture,Comprehensive: P1 No growth in 36 - 48 hours. Previous result entered on 03/16/2021 07:07 ET No growth after 18-24 hours. P1 Test performed by: [facility] #: [id number] [address] [place] [address] [id number] [facility] [id number] Organ Installer : Be Wylie MD NPI #: [employer]ational Development : 03/17/[email or web address].[email or web address] REF 03/17/[email or web address].XMT.SENT REF 4 {A1] {HB] 5 Units are mL/min/1.73 m2 Chronic Kidney Disease Staging per NKF: Stage I & II GFR >=60 Normal to Mildly Decreased Stage III GFR 30-59 Moderately Decreased Stage IV GFR 15-29 Severely Decreased Stage V GFR <15 Very Little GFR Left ESRD GFR <15 on INDEPENDENT PRODUCER 6 Units are mL/min/1.73 m2 Chronic Kidney Disease Staging per NKF: Stage I & II GFR >=60 Normal to Mildly Decreased Stage III GFR 30-59 Moderately Decreased Stage IV GFR 15-29 Severely Decreased Stage V GFR <15 Very Little GFR Left ESRD GFR <15 on INDEPENDENT PRODUCER 7 NORMAL MENSTRUATING FEMALES: FOLLICULAR PHASE 2.5-10.2 mIU/mL MID CYCLE PEAK 3.4-33.4 mIU/mL LUTEAL PHASE 1.5-9.1 mIU/mL : <0.3 mIU/mL POST MENOPAUSAL FEMALES: 23.0-116.3 mIU/mL 8 NORMAL MENSTRUATING FEMALES: FOLLICULAR PHASE 1.9-12.5 mIU/mL MID CYCLE PEAK 8.7-76.3 mIU/mL LUTEAL PHASE 0.5-16.9 mIU/mL <1.5 mIU/mL POST MENOPAUSAL FEMALES: 15.9-54.0 mIU/mL CONTRACEPTIVES 0.7-5.6 mIU/mL 9 NORMAL MENSTRUATING FEMALES: FOLLICULAR PHASE 19.5-144.2 PG/ML MID CYCLE PEAK 63.9-356.7 PG/ML LUTEAL PHASE 55.8-214.2 PG/ML POST MENOPAUSAL FEMALES <32.2 PG/ML (UNTREATED) THE eESTRADIOL2 ASSAY IS PERFORMED ON THE [employer] BY CHEMILUMINESCENCE AND SHOULD NOT BE COMPARED INTERCHANGEABLY WITH OTHER METHODS. Falsely elevated Estradiol test results can be seen in patients treated with fulvestrant (Faslodex). Estradiol concentrations in fulvestrant treated women should only be measured by LC-MS (Liquid Chromatography-Mass Spectrometry). 10 Units are mL/min/1.73 m2 Chronic Kidney Disease Staging per NKF: Stage I & II GFR >=60 Normal to Mildly Decreased Stage III GFR 30-59 Moderately Decreased Stage IV GFR 15-29 Severely Decreased Stage V GFR <15 Very Little GFR Left ESRD GFR <15 on INDEPENDENT PRODUCER 11 THE AFP ASSAY IS PERFORMED O N THE [employer] BY CHEMILUMINESCENCE AND SHOULD NOT BE COMPARED [...] specificity for gluten sensitive enteropathy. Performed at: [facility] [address] [id number] [employer]ational Development: Heide Lr MD, Phone: [phone] THERAPUTIC HUMAN INR VALUES INDICATIONS NORMAL RANGES PROPHYLAXIS/TREATMENT OF: VENOUS THROMBOSIS 2.0-3.0 PULMONARY EMBOLISM 2.0-3.0 PREVENTION OF SYSTEMIC EMBOLISM FROM: TISSUE HEART VALVES 2.0-3.0 ACUTE MYOCARDIAL INFARCTION 2.0-3.0 VALVULAR HEART DISEASE 2.0-3.0 ATRIAL FIBRILLATION 2.0-3.0 MECHANICAL VALVES(HIGH RISK) 2.5-3.5 RECURRENT MYOCARDIAL INFARCTION 2.5-3.5 14 Units are mL/min/1.73 m2 Chronic Kidney Disease Staging per NKF: Stage I & II GFR >=60 Normal to Mildly Decreased Stage III GFR 30-59 Moderately Decreased Stage IV GFR 15-29 Severely Decreased Stage V GFR <15 Very Little GFR Left ESRD GFR <15 on INDEPENDENT PRODUCER 15 ATYPICAL SHAPE OF GAMMA HASEEB ON [...] REV'D BY Reji AMATO 19 Performed at: [facility] [employer] [id number] [employer]ational Development: Heide Lr MD, Phone: [phone] 20 Units are mL/min/1.73 m2 Chronic Kidney Disease Staging per NKF: Stage I & II GFR >=60 Normal to Mildly Decreased Stage III GFR 30-59 Moderately Decreased Stage IV GFR 15-29 Severely Decreased Stage V GFR <15 Very Little GFR Left ESRD GFR <15 on INDEPENDENT PRODUCER 21 Is patient fasting? Y 22 COMPLETE BLOOD COUNT 23 {A1] {HB] 24 COM[address]HENSIVE METABOLIC PANE L 25 Male GFR Interprentation 20-49 yrs >60 mL/min Normal 50-59 yrs >56 mL/min Normal 60-69 yrs >49 mL/min Normal 70-79yrs >42 mL/min Normal 80 and above >35 mL/min Normal Female GFR Interpretation 20-39 yrs >60 mL/min Normal 40-49 yrs >58 mL/min Normal 50-59 yrs >51 mL/min Normal 60-69 yrs >45 mL/min Normal 70-79 yrs >39 mL/min Normal 80 and above >32 mL/min Normal Procedures Date Code Description Status 09/24/2020 20050 Office/Outpatient Established Lo w MDM 20-29 Min Completed 09/24/2020 32322 Admin Patient Focused Health Ris k Assessment Instrument Completed 09/24/2020 28482 Brief Emotional/Beha v Assessment W/ Scoring Doc Per Standard Inst Completed Medical Devices Description No Information Available Encounters Description No Information Available Assessments Date Code Description Provider 03/13/2021 E11.9 Type 2 diabetes mellitus without complications Rita Rose MD 03/13/2021 R05 Cough Rita watkins MD 03/13/2021 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 Rita Rose MD 03/13/2021 Z01.818 Encounter for other preprocedura l examination Rita Rose MD 09/24/2020 R53.83 Other fatigue Rita watkins MD 09/24/2020 E11.9 Type 2 diabetes mellitus without complications Rita Rose MD 09/24/2020 E61.1 Iron deficiency Rita watkins MD 09/24/2020 Z11.59 Encounter for screening for othe r viral diseases Rita Rose MD 09/24/2020 Z11.3 Encounter for screen ing for infections with a predominantly sexual mode of transmission Rita Rose MD 09/24/2020 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 2 by mouth daily for next 2 days. then 1 by mouth for 2 days. take in the morning. * Clonidine HCL 0.1 mg - take one tablet three times daily * Tessalon Perles 100 mg - 2 capsules by mouth three time per day as needed for cough * Nifedipine ER 30 mg - 1 by mouth dialy * Follow up:* 1 week. * Recommendations:* The patient had 2 courses of antibiotics with no relief. This could be a side effect of lisinopril that she has been taking. Even though she has been taking lisinopril for a long time, cough can occur later in the course. Advised her to stop lisinopril. She was given course of prednisone, albuterol inhaler and another course of cephalexin antibiotic. She is scheduled for surgery on March 19. With persistent cough, I do not feel comfortable proceeding with surgery. She is also not comfortable to go for surgery because of cough. Encouraged her to quit smoking. I request that surgery be postponed for another week. She had normal EKG and chest x-ray. Labs reviewed which showed normal CBC, CMP, PT and PTT. Her blood sugar was 270, so we will do A1c today. Her liver functions were WNL. Ordered UA and urine culture today in preparation for the surgery. Functional Status Functional Condition Comment Date Status Glasses Active Mental Status Description No Information Available Referrals Refer to Reason for Referral Status Appt Date Anxiety Sent
--- OUTSIDE RECORDS SUMMARY | 2021-04-07 10:40 | CCD | Continuity of Care Document ---
Author Author Rina ROSE MD Organization Unknown Address [address] [place] [address] Phone [phone] Care Team Providers Care Contract Forester Name Role Phone Rita Rose MD AUTM [phone] [facility] Gastroenterology AUTM [phone] Erika Chandra AUTM [phone] [facility] AUTM [facility] Behavioral Health AUTM [phone] Braulio Figueroa MD AUTM [phone] [facility] AUTM [facility] Breast Surgery; DR. Duarte AUTM Problems [...] 12/30/2019 Note: Diagnosed December 2019. ER and [place] posi tive. Her 2 negative. Ki67 10% [...] Carcinoma breast Rita Rose MD 02/12/2020 Pen [place] 3/16" 31G X 5 mm Misc use with basaglar pen once daily. 100units Rita Rose MD 0 10/17/2019 Trazodone HCL 100mg Tablets 1 tab by mouth daily at bedtime take 1/2 tablet by mouth in the morning and one tablet in the evening will be prescribed by at [facility] 90tabs Lacey Rose MD 09/26/2019 Fenofibrate Micronized [...] other day(otc) Unknown Calcium 500 + D3 [id number] Ta blets 2 daily by mouth Unknown [...] CPT Code Status Date Vaccine Lot # [id number] Given 05/22/2019 HepB Adult (Engerix/Recombiv ax) 1mL Vacc [id number] Given 05/22/2019 Influenza (>= 6 Months) P.F. Vaccine [id number] Given 12/20/2018 HepB Adult (Engerix/Recombiv ax) 1mL Vacc [id number] Given 12/20/2018 Pneumococcal 13(Prevnar 13) Vaccine [id number] Given 08/18/2018 HepB Adult (Engerix/Recombiv ax) 1mL [...] Result H/L Range Note Urinalysis 03/13/2021 [facility] Urinalysis (SEE NOTE) 1, 2 Source R Color yellow Normal: Yellow Clarity clear Normal: Clear Spec [place] 1.010 1.001 - 1.030 pH 6 5 - 9 Glucose NORM Normal: Negative Bilirubin NEG Normal: Negative Ketone NEG Normal: Negative Protein 30 Normal: Negative Nitrite NEG Normal: Negative Blood NEG Normal: Negative Leuk Est NEG Normal: Negative Urobilinogen NOR less than 1.0 mg/dL Microscopic Not Indicate Cuture Urine 03/13/2021 [facility] Culture Urine (SEE NOTE) 3 Laboratory test finding 03/13/2021 [facility] Hgba1c 8.2 % High 4.4 - 6.1 4 CBC With Differential 03/06/2021 [facility] White Blood Count 8.5 10 Normal [...] 36.0-66.0 Lymph % 26.5 % Normal 24.0-44.0 [place] % 6.8 % Normal 2.0-8.0 Eos % 1.9 % Normal 0.0-3.0 Baso % 0.9 % Normal 0.0-1.0 Immature Granulocyte % 0.9 % Normal 0-3.0 Nucleated Red Blood Cell % 0.0 % Normal 0-0 Neutrophils # 5.3 10 Normal 1.5-8.5 Lymph # 2.3 10 Normal 1.5-5.0 [place] # 0.6 10 Normal 0.0-0.8 Eos # 0.2 10 Normal 0.0-0.5 Baso # 0.1 10 Normal 0.0-0.2 Comprehensive Metabolic Profil 03/06/2021 [facility] Glucose, Fasting 270 mg/dL High 70-100 [...] Low 1.2-2.2 Total Iron Binding Capacit 03/06/2021 [facility] Iron (Fe) 55 g/dL Normal 50-170 Total Iron Binding Capacity 363 g/dL Normal 250-450 Percent Saturation 15.2 % Normal 13.2-45.0 Laboratory test finding 03/06/2021 [facility] Ferritin 37 NG/ML Normal 8-252 Laboratory test finding 12/09/2020 [facility] Bedside Glucose 160 mg/dL High 70-105 CBC With Differential 11/26/2020 [facility] White Blood Count 11.2 10 High [...] 36.0-66.0 Lymph % 15.1 % Low 24.0-44.0 [place] % 6.7 % Normal 2.0-8.0 Eos % 1.6 % Normal 0.0-3.0 Baso % 0.7 % Normal 0.0-1.0 Immature Granulocyte % 0.9 % Normal 0-3.0 Nucleated Red Blood Cell % 0.0 % Normal 0-0 Neutrophils # 8.4 10 Normal 1.5-8.5 Lymph # 1.7 10 Normal 1.5-5.0 [place] # 0.8 10 Normal 0.0-0.8 Eos # 0.2 10 Normal 0.0-0.5 Baso # 0.1 10 Normal 0.0-0.2 Laboratory test finding 11/26/2020 [facility] Estradiol < 19.0 pg/mL Normal 6 FSH & LH Eval 11/26/2020 [facility] Follicle Stimulating Hormone 120.4 mIU/mL Normal 7 Luteinizing Hormone 52.8 mIU/mL Normal 8 Laboratory test finding 11/26/2020 [facility] Ferritin 38 NG/ML Normal 8-252 Total Iron Binding Capacit 11/26/2020 [facility] Iron (Fe) 47 g/dL Low 50-170 Total Iron Binding Capacity 361 g/dL Normal 250-450 Percent Saturation 13.0 % Low 13.2-45.0 Comprehensive Metabolic Profil 11/26/2020 [facility] Glucose, Fasting 204 mg/dL High 70-100 [...] Ratio 0.8 Low 1.2-2.2 Prothrombin Time/Inr 11/06/2020 [facility] Prothrombin Time 12.7 seconds Normal 12.5-14.3 Inr 0.93 Normal 10 Laboratory test finding 11/06/2020 [facility] Immunoglobulin A 250.0 mg/dL Normal 70-400 Alpha Fetoprotein Tumor Quant < 1.3 NG/ML Normal <8.1 11 Tissue Transglutaminase IgA <2 U/mL Normal 0-3 12 Creatinine With GFR 11/06/2020 [facility] Creatinine For GFR 0.72 mg/dL Normal 0.55-1.30 Glomerular Filtration Rate > 60.0 Normal >51 1 3 Laboratory test finding 11/06/2020 [facility] Blood Urea Nitrogen 9 mg/dL Normal 7-18 Liver Profile 11/06/2020 [facility] Ast/Sgot 35 U/L Normal 7-37 Alt/SGPT 61 U/L Normal 12-78 Alkaline Phosphatase 93 U/L Normal 45-117 Bilirubin,Total 0.2 mg/dL Normal 0.2-1.0 Bilirubin,Direct < 0.1 mg/dL Normal 0.0-0.2 Total Protein 7.4 GM/DL Normal 6.4-8.2 Albumin 3.9 GM/DL Normal 3.2-5.2 Albumin/Globulin Ratio 1.1 Low 1.2-2.2 Comprehensive Metabolic Profil 11/04/2020 [facility] Glucose, Fasting 128 mg/dL High 70-100 [...] 1.0 Low 1.2-2.2 Laboratory test finding 11/04/2020 [facility] PTH Intact 13.3 pg/mL Low 18.5-88.0 Immunotyping (Immunofixation) Serum (If 11/04/2020 [facility] It Serum Interpretation SEE COMMENT Normal 15 Its Pathologist Review REV'D BY O ADJAP <SEE NOTE> Normal 16 Serum Protein Electrophoresis 11/04/2020 [facility] Albumin % 57.2 % Normal 55.8-66.1 Sigiu-3-Xcvomugn % 3.6 % Normal 2.9-4.9 Ftajj-6-Sotqrhesh % 10.8 % Normal 7.1-11.8 Jlgt-3-Smfuervrk % 6.5 % Normal 4.7-7.2 Krow-9-Ettbhhnfy % 5.6 % Normal 3.2-6.5 Gamma Globulin % 16.3 % Normal 11.1-18.8 Albumin 4.29 GM/DL Normal 3.29-5.55 Otynb-6-Zoaedtnmp 0.27 GM/DL Normal 0.17-0.41 Qnlcb-4-Ynpafhfcb 0.81 GM/DL Normal 0.42-0.99 Assx-3-Ixcnmlpog 0.49 GM/DL Normal 0.28-0.60 Rdcl-5-Jsqjaaphp 0.42 GM/DL Normal 0.19-0.55 Gamma Globulins 1.22 GM/DL Normal 0.65-1.58 Total Protein 7.5 GM/DL Normal 6.4-8.2 Spep Interpretation SEE COMMENT Normal 17 Spep Pathologist Review REV'D BY O ANN MARIE <SEE NOTE> Normal 18 [place] & Lambda LT Chains 11/04/2020 [facility] [place] Light Chains Serum 32.0 mg/L High 3.3-19.4 Free [place] Light Chains Serum 27.5 mg/L High 5.7-26.3 [place]/Lambda Ratio Serum 1.16 Normal 0.26-1.65 19 CBC With Differential 10/27/2020 [facility] White Blood Count 10.4 10 High [...] 36.0-66.0 Lymph % 35.7 % Normal 24.0-44.0 [place] % 6.4 % Normal 2.0-8.0 Eos % 1.8 % Normal 0.0-3.0 Baso % 1.0 % Normal 0.0-1.0 Immature Granulocyte % 0.6 % Normal 0-3.0 Nucleated Red Blood Cell % 0.0 % Normal 0-0 Neutrophils # 5.7 10 Normal 1.5-8.5 Lymph # 3.7 10 Normal 1.5-5.0 [place] # 0.7 10 Normal 0.0-0.8 Eos # 0.2 10 Normal 0.0-0.5 Baso # 0.1 10 Normal 0.0-0.2 Comprehensive Metabolic Profil 10/27/2020 [facility] Glucose, Fasting 91 mg/dL Normal 70-100 [...] Low 1.2-2.2 Total Iron Binding Capacit 10/27/2020 [facility] Iron (Fe) 63 g/dL Normal 50-170 Total Iron Binding Capacity 412 g/dL Normal 250-450 Percent Saturation 15.3 % Normal 13.2-45.0 Laboratory test finding 10/27/2020 [facility] Ferritin 34 NG/ML Normal 8-252 1 {SOURCE: Random Void~NURSE COLLECTED? N {SPECIMEN TYPE: RANDOM 2 URINALYSIS 3 _CULTURE URINE_ ^$[id number] ^^[id number] $$414025 ^^[id number] $$731308 $$318361 $$851427 $$133839 $$325694 $$779273 $$974615 $$225211 $$160728 $$759638 $$935885 $$674012 $$254763 $$715625 $$207293 $$784632 $$501292 $$643456 $$440060 $$750921 $$856301 $$931757 $$071238 ^^880757 $$605559 $$456674 $$232778 -- Continued on next page -- Patient: BHARATH Villatoro Order: [id number] Page 2 Culture: CULTURE URINE Status: Final -- Continued on next page -- Patient: BHARATH Villatoro Order: [id number] Page 2 Culture: CULTURE URINE Status: Prelim $$[id number] $$[id number] REPORTED DATE/TIME: 03/17/2021 16:07 Culture: CULTURE URINE Status: Final Urine Culture,Comprehensive: P1 No growth in 36 - 48 hours. Previous result entered on 03/16/2021 07:07 ET No growth after 18-24 hours. P1 Test performed by: [facility] #: [id number] [address] [place] [address] Avenue [id number] [facility] [address] [employer] Supervisor : Be Wylie MD NPI #: Election Judge : 03/17/[email or web address] REF 03/17/[email or web address].SENT REF 4 {A1] {HB] 5 Units are mL/min/1.73 m2 Chronic Kidney Disease Staging per NKF: Stage I & II GFR >=60 Normal to Mildly Decreased Stage III GFR 30-59 Moderately Decreased Stage IV GFR 15-29 Severely Decreased Stage V GFR <15 Very Little GFR Left ESRD GFR <15 on VP SECURITIES 6 NORMAL MENSTRUATING FEMALES: FOLLICULAR PHASE 19.5-144.2 PG/ML MID CYCLE PEAK 63.9-356.7 PG/ML LUTEAL PHASE 55.8-214.2 PG/ML POST MENOPAUSAL FEMALES <32.2 PG/ML (UNTREATED) THE eESTRADIOL2 ASSAY IS PERFORMED ON THE [employer] BY CHEMILUMINESCENCE AND SHOULD NOT BE COMPARED [...] Little GFR Left ESRD GFR <15 on VP SECURITIES 10 THERAPUTIC HUMAN INR VALUES INDICATIONS NORMAL RANGES PROPHYLAXIS/TREATMENT OF: VENOUS THROMBOSIS 2.0-3.0 PULMONARY EMBOLISM 2.0-3.0 PREVENTION OF SYSTEMIC EMBOLISM FROM: TISSUE HEART VALVES 2.0-3.0 ACUTE MYOCARDIAL INFARCTION 2.0-3.0 VALVULAR HEART DISEASE 2.0-3.0 ATRIAL FIBRILLATION 2.0-3.0 MECHANICAL VALVES(HIGH RISK) 2.5-3.5 RECURRENT MYOCARDIAL INFARCTION 2.5-3.5 11 THE AFP ASSAY IS PERFORMED O N THE [employer] BY CHEMILUMINESCENCE AND SHOULD NOT BE COMPARED [...] for gluten sensitive enteropathy. Performed at: - [facility] [id number] Election Judge: Heide Lr MD, Phone: [phone] Units are mL/min/1.73 m2 Chronic Kidney Disease Staging per NKF: Stage I & II GFR >=60 Normal to Mildly Decreased Stage III GFR 30-59 Moderately Decreased Stage IV GFR 15-29 Severely Decreased Stage V GFR <15 Very Little GFR Left ESRD GFR <15 on VP SECURITIES 14 Units are mL/min/1.73 m2 Chronic Kidney Disease Staging per NKF: Stage I & II GFR >=60 Normal to Mildly Decreased Stage III GFR 30-59 Moderately Decreased Stage IV GFR 15-29 Severely Decreased Stage V GFR <15 Very Little GFR Left ESRD GFR <15 on VP SECURITIES 15 ATYPICAL SHAPE OF GAMMA HASEEB ON [...] AMATO 19 Performed at: RN - [facility] [address] [id number] Election Judge: Heide Lr MD, Phone: [phone] Units are mL/min/1.73 m2 Chronic Kidney Disease Staging per NKF: Stage I & II GFR >=60 Normal to Mildly Decreased Stage III GFR 30-59 Moderately Decreased Stage IV GFR 15-29 Severely Decreased Stage V GFR <15 Very Little GFR Left ESRD GFR <15 on VP SECURITIES Procedures Description No Information Available Medical Devices [...]
--- OUTSIDE RECORDS SUMMARY | 2021-04-07 10:41 | CCD | Continuity of Care Document ---
Author Author Rina ROSE MD Organization Unknown Address [address] [place] [address] Phone [phone] Care Team Providers Care Sourcing Engineer Name Role Phone Rita Rose MD AUTM [phone] [facility] Gastroenterology AUTM [phone] Erika Chandra AUTM [phone] [facility] [address] AUTM [phone] [facility] Behavioral Health AUTM [phone] Braulio Figueroa MD AUTM [phone] [facility] AUTM [facility] Breast Surgery; DR. Duarte AUTM Problems Active [...] 12/30/2019 Note: Diagnosed December 2019. ER and MS posi tive. Her 2 negative. Ki67 10% [...] time per day as needed for cough 30caps Rita Rose MD 03/13/2021 Albuterol Sulfate HFA 108(90Base) mcg/Act Aerosol inhale 1 puff by mouth every 4 hours as needed 25.5gm Rita Rose MD 03/13/2021 Semglee 100Unit/ML Solution Pen-In ject inject subcutaneously 20 units once a day 6ml E11.9 Rita [...] Carcinoma breast Rita Rose MD 02/12/2020 Pen [place] 3/16" 31G X 5 mm Misc use with basaglar pen once daily. 100units Rita Rose MD 0 10/17/2019 Trazodone HCL 100mg Tablets 1 tab by mouth daily at bedtime take 1/2 tablet by mouth in the morning and one tablet in the evening [facility] 90[facility] Pavel El MD 09/26/2019 Fenofibrate Micronized [...] other day(otc) Unknown Calcium 500 + D3 [id number] Ta blets 2 daily by mouth Unknown [...] CPT Code Status Date Vaccine Lot # [id number] Given 05/22/2019 HepB Adult (Engerix/Recombiv ax) 1mL Vacc [id number] Given 05/22/2019 Influenza (>= 6 Months) P.F. Vaccine [id number] Given 12/20/2018 HepB Adult (Engerix/Recombiv ax) 1mL Vacc [id number] Given 12/20/2018 Pneumococcal 13(Prevnar 13) Vaccine [id number] Given 08/18/2018 HepB Adult (Engerix/Recombiv ax) 1mL [...] Test Result H/L Range Note Urinalysis 03/13/2021 [facility] Urinalysis (SEE NOTE) 1, 2 Source R Color yellow Normal: Yellow Clarity clear Normal: Clear Spec [place] 1.010 1.001 - 1.030 pH 6 5 - 9 Glucose NORM Normal: Negative Bilirubin NEG Normal: Negative Ketone NEG Normal: Negative Protein 30 Normal: Negative Nitrite NEG Normal: Negative Blood NEG Normal: Negative Leuk Est NEG Normal: Negative Urobilinogen NOR less than 1.0 mg/dL Microscopic Not Indicate Laboratory test finding 03/13/2021 [facility] Hgba1c 8.2 % High 4.4 - 6.1 3 CBC With Differential 03/06/2021 [facility] White Blood Count 8.5 10 Normal [...] 36.0-66.0 Lymph % 26.5 % Normal 24.0-44.0 [place] % 6.8 % Normal 2.0-8.0 Eos % 1.9 % Normal 0.0-3.0 Baso % 0.9 % Normal 0.0-1.0 Immature Granulocyte % 0.9 % Normal 0-3.0 Nucleated Red Blood Cell % 0.0 % Normal 0-0 Neutrophils # 5.3 10 Normal 1.5-8.5 Lymph # 2.3 10 Normal 1.5-5.0 [place] # 0.6 10 Normal 0.0-0.8 Eos # 0.2 10 Normal 0.0-0.5 Baso # 0.1 10 Normal 0.0-0.2 Comprehensive Metabolic Profil 03/06/2021 [facility] Glucose, Fasting 270 mg/dL High 70-100 Blood Urea Nitrogen 10 mg/dL Normal 7-18 Creatinine For GFR 0.92 mg/dL Normal 0.55-1.30 Glomerular Filtration Rate > 60.0 Normal >51 4 Sodium Level 135 mEq/L Low 136-145 Potassium [...] Low 1.2-2.2 Total Iron Binding Capacit 03/06/2021 [facility] Iron (Fe) 55 g/dL Normal 50-170 Total Iron Binding Capacity 363 g/dL Normal 250-450 Percent Saturation 15.2 % Normal 13.2-45.0 Laboratory test finding 03/06/2021 [facility] Ferritin 37 NG/ML Normal 8-252 Laboratory test finding 12/09/2020 [facility] Bedside Glucose 160 mg/dL High 70-105 CBC With Differential 11/26/2020 [facility] White Blood Count 11.2 10 High [...] 36.0-66.0 Lymph % 15.1 % Low 24.0-44.0 [place] % 6.7 % Normal 2.0-8.0 Eos % 1.6 % Normal 0.0-3.0 Baso % 0.7 % Normal 0.0-1.0 Immature Granulocyte % 0.9 % Normal 0-3.0 Nucleated Red Blood Cell % 0.0 % Normal 0-0 Neutrophils # 8.4 10 Normal 1.5-8.5 Lymph # 1.7 10 Normal 1.5-5.0 [place] # 0.8 10 Normal 0.0-0.8 Eos # 0.2 10 Normal 0.0-0.5 Baso # 0.1 10 Normal 0.0-0.2 Comprehensive Metabolic Profil 11/26/2020 [facility] Glucose, Fasting 204 mg/dL High 70-100 Blood Urea Nitrogen 10 mg/dL Normal 7-18 Creatinine For GFR 0.87 mg/dL Normal 0.55-1.30 Glomerular Filtration Rate > 60.0 Normal >51 5 Sodium Level 137 mEq/L Normal 136-145 Potassium [...] Low 1.2-2.2 Total Iron Binding Capacit 11/26/2020 [facility] Iron (Fe) 47 g/dL Low 50-170 Total Iron Binding Capacity 361 g/dL Normal 250-450 Percent Saturation 13.0 % Low 13.2-45.0 Laboratory test finding 11/26/2020 [facility] Ferritin 38 NG/ML Normal 8-252 FSH & LH Eval 11/26/2020 [facility] Follicle Stimulating Hormone 120.4 mIU/mL Normal 6 Luteinizing Hormone 52.8 mIU/mL Normal 7 Laboratory test finding 11/26/2020 [facility] Estradiol < 19.0 pg/mL Normal 8 Creatinine With GFR 11/06/2020 [facility] Creatinine For GFR 0.72 mg/dL Normal 0.55-1.30 Glomerular Filtration Rate > 60.0 Normal >51 9 Laboratory test finding 11/06/2020 [facility] Immunoglobulin A 250.0 mg/dL Normal 70-400 Alpha Fetoprotein Tumor Quant < 1.3 NG/ML Normal <8.1 10 Tissue Transglutaminase IgA <2 U/mL Normal 0-3 11 Liver Profile 11/06/2020 [facility] Ast/Sgot 35 U/L Normal 7-37 Alt/SGPT 61 U/L Normal 12-78 Alkaline Phosphatase 93 U/L Normal 45-117 Bilirubin,Total 0.2 mg/dL Normal 0.2-1.0 Bilirubin,Direct < 0.1 mg/dL Normal 0.0-0.2 Total Protein 7.4 GM/DL Normal 6.4-8.2 Albumin 3.9 GM/DL Normal 3.2-5.2 Albumin/Globulin Ratio 1.1 Low 1.2-2.2 Prothrombin Time/Inr 11/06/2020 [facility] Prothrombin Time 12.7 seconds Normal 12.5-14.3 Inr 0.93 Normal 12 Laboratory test finding 11/06/2020 [facility] Blood Urea Nitrogen 9 mg/dL Normal 7-18 Comprehensive Metabolic Profil 11/04/2020 [facility] Glucose, Fasting 128 mg/dL High 70-100 Blood Urea Nitrogen 12 mg/dL Normal 7-18 Creatinine For GFR 0.79 mg/dL Normal 0.55-1.30 Glomerular Filtration Rate > 60.0 Normal >51 1 3 Sodium Level 139 mEq/L Normal 136-145 Potassium [...] 1.0 Low 1.2-2.2 Laboratory test finding 11/04/2020 [facility] PTH Intact 13.3 pg/mL Low 18.5-88.0 Immunotyping (Immunofixation) Serum (If 11/04/2020 [facility] It Serum Interpretation SEE COMMENT Normal 14 Its Pathologist Review REV'D BY O ADJAP <SEE NOTE> Normal 15 Serum Protein Electrophoresis 11/04/2020 [facility] Albumin % 57.2 % Normal 55.8-66.1 Ylyfu-2-Jwzxvqbm % 3.6 % Normal 2.9-4.9 Fxlud-1-Wkfwxxxuq % 10.8 % Normal 7.1-11.8 Hrdg-2-Jkdgmxzpk % 6.5 % Normal 4.7-7.2 Nmas-3-Zsdlvitnp % 5.6 % Normal 3.2-6.5 Gamma Globulin % 16.3 % Normal 11.1-18.8 Albumin 4.29 GM/DL Normal 3.29-5.55 Hnwem-6-Cwgxkqujk 0.27 GM/DL Normal 0.17-0.41 Jumgc-0-Uggzumnqk 0.81 GM/DL Normal 0.42-0.99 Qepy-4-Mvnmtarit 0.49 GM/DL Normal 0.28-0.60 Rbmq-7-Dclkkcvfm 0.42 GM/DL Normal 0.19-0.55 Gamma Globulins 1.22 GM/DL Normal 0.65-1.58 Total Protein 7.5 GM/DL Normal 6.4-8.2 Spep Interpretation SEE COMMENT Normal 16 Spep Pathologist Review REV'D BY Reji JESUS <SEE NOTE> Normal 17 Free [place] & Lambda LT Chains 11/04/2020 [facility] Free [place] Light Chains Serum 32.0 mg/L High 3.3-19.4 Free Lambda Light Chains Serum 27.5 mg/L High 5.7-26.3 [place]/Lambda Ratio Serum 1.16 Normal 0.26-1.65 18 Comprehensive Metabolic Profil 10/27/2020 [facility] Glucose, Fasting 91 mg/dL Normal 70-100 Blood Urea Nitrogen 13 mg/dL Normal 7-18 Creatinine For GFR 0.98 mg/dL Normal 0.55-1.30 Glomerular Filtration Rate > 60.0 Normal >51 1 9 Sodium Level 137 mEq/L Normal 136-145 [...] 1.0 Low 1.2-2.2 Laboratory test finding 10/27/2020 [facility] Ferritin 34 NG/ML Normal 8-252 Total Iron Binding Capacit 10/27/2020 [facility] Iron (Fe) 63 g/dL Normal 50-170 Total Iron Binding Capacity 412 g/dL Normal 250-450 Percent Saturation 15.3 % Normal 13.2-45.0 CBC With Differential 10/27/2020 [facility] White Blood Count 10.4 10 High [...] 36.0-66.0 Lymph % 35.7 % Normal 24.0-44.0 [place] % 6.4 % Normal 2.0-8.0 Eos % 1.8 % Normal 0.0-3.0 Baso % 1.0 % Normal 0.0-1.0 Immature Granulocyte % 0.6 % Normal 0-3.0 Nucleated Red Blood Cell % 0.0 % Normal 0-0 Neutrophils # 5.7 10 Normal 1.5-8.5 Lymph # 3.7 10 Normal 1.5-5.0 [place] # 0.7 10 Normal 0.0-0.8 Eos # 0.2 10 Normal 0.0-0.5 Baso # 0.1 10 Normal 0.0-0.2 CBC No Diff 09/24/2020 [facility] CBC No Diff (SEE NOTE) 20, 21 WBC 7.9 10^3/uL 4.2 - 11.0 RBC [...] 7.4 - 10.4 Laboratory test finding 09/24/2020 [facility] Hgba1c 7.6 % High 4.4 - 6.1 22 Comprehensive Metabolic Panel 09/24/2020 [facility] Comprehensive Metabo (SEE NOTE) 23 Sodium 135 mEq/L 134 - 153 Potassium [...] >60 mL/min Afr Amer GFR >60 mL/min 24 Laboratory test finding 09/24/2020 [facility] TSH Highly Sensitive 1.26 uIU/mL 0.47 - 5.01 Iron 62 g/dL 42 - 135 Hep C Antibody With Reflex Quant PCR 0.1 s/coratio 0.0 -0.9 HIV Panel 09/24/2020 [facility] HIV Screen 4thGeneration wRfx Non Reactive Non Reacti ve Laboratory test finding 09/24/2020 [facility] Syphilis NON-REACTIVE Normal:Non Reactive 1 {SOURCE: Random Void~NURSE COLLECTED? N 2 URINALYSIS 3 {A1] {HB] 4 Units are mL/min/1.73 m2 Chronic Kidney Disease Staging per NKF: Stage I & II GFR >=60 Normal to Mildly Decreased Stage III GFR 30-59 Moderately Decreased Stage IV GFR 15-29 Severely Decreased Stage V GFR <15 Very Little GFR Left ESRD GFR <15 on SKIP HOIST ENGINEER 5 Units are mL/min/1.73 m2 Chronic Kidney Disease Staging per NKF: Stage I & II GFR >=60 Normal to Mildly Decreased Stage III GFR 30-59 Moderately Decreased Stage IV GFR 15-29 Severely Decreased Stage V GFR <15 Very Little GFR Left ESRD GFR <15 on SKIP HOIST ENGINEER 6 NORMAL MENSTRUATING FEMALES: FOLLICULAR PHASE 2.5-10.2 mIU/mL MID CYCLE PEAK 3.4-33.4 mIU/mL LUTEAL PHASE 1.5-9.1 mIU/mL : <0.3 mIU/mL POST MENOPAUSAL FEMALES: 23.0-116.3 mIU/mL 7 NORMAL MENSTRUATING FEMALES: FOLLICULAR PHASE 1.9-12.5 mIU/mL MID CYCLE PEAK 8.7-76.3 mIU/mL LUTEAL PHASE 0.5-16.9 mIU/mL <1.5 mIU/mL POST MENOPAUSAL FEMALES: 15.9-54.0 mIU/mL CONTRACEPTIVES 0.7-5.6 mIU/mL 8 NORMAL MENSTRUATING FEMALES: FOLLICULAR PHASE 19.5-144.2 PG/ML MID CYCLE PEAK 63.9-356.7 PG/ML LUTEAL PHASE 55.8-214.2 PG/ML POST MENOPAUSAL FEMALES <32.2 PG/ML (UNTREATED) THE eESTRADIOL2 ASSAY IS PERFORMED ON THE [employer] BY CHEMILUMINESCENCE AND SHOULD NOT BE COMPARED INTERCHANGEABLY WITH OTHER METHODS. Falsely elevated Estradiol test results can be seen in patients treated with fulvestrant (Faslodex). Estradiol concentrations in fulvestrant treated women should only be measured by LC-MS (Liquid Chromatography-Mass Spectrometry). 9 Units are mL/min/1.73 m2 Chronic Kidney Disease Staging per NKF: Stage I & II GFR >=60 Normal to Mildly Decreased Stage III GFR 30-59 Moderately Decreased Stage IV GFR 15-29 Severely Decreased Stage V GFR <15 Very Little GFR Left ESRD GFR <15 on SKIP HOIST ENGINEER 10 THE AFP ASSAY IS PERFORMED O N THE [employer] BY CHEMILUMINESCENCE AND SHOULD NOT BE COMPARED INTERCHANGEABLY WITH OTHER METHODS. IT SHOULD NOT BE USED ALONE A SCREENING TEST OR DIAGNOSIS FOR THE PRESENCE OR ABSENCE OF MALIGNANT DISEASE. THESE RESULTS ARE NOT INTERPRETABLE IN FEMALES. PREDICTIONS OF DISEASE RECURRENCE SHOULD NOT BE BASED SOLELY ON VALUES OBTAINED FROM SERIAL PATIENT SERUM VALUES. 11 Negative 0 - 3 Weak Positive 4 - 10 Positive >10 . Tissue Transglutaminase (tTG) has been identified as the endomysial antigen. Studies have demonstr- ated that endomysial IgA antibodies have over 99% specificity for gluten sensitive enteropathy. Performed at: - [facility] [id number] Help Desk Supervisor: Heide Lr MD, Phone: [phone] 12 THERAPUTIC HUMAN INR VALUES INDICATIONS NORMAL RANGES PROPHYLAXIS/TREATMENT OF: VENOUS THROMBOSIS 2.0-3.0 PULMONARY EMBOLISM 2.0-3.0 PREVENTION OF SYSTEMIC EMBOLISM FROM: TISSUE HEART VALVES 2.0-3.0 ACUTE MYOCARDIAL INFARCTION 2.0-3.0 VALVULAR HEART DISEASE 2.0-3.0 ATRIAL FIBRILLATION 2.0-3.0 MECHANICAL VALVES(HIGH RISK) 2.5-3.5 RECURRENT MYOCARDIAL INFARCTION 2.5-3.5 13 Units are mL/min/1.73 m2 Chronic Kidney Disease Staging per NKF: Stage I & II GFR >=60 Normal to Mildly Decreased Stage III GFR 30-59 Moderately Decreased Stage IV GFR 15-29 Severely Decreased Stage V GFR <15 Very Little GFR Left ESRD GFR <15 on SKIP HOIST ENGINEER 14 ATYPICAL SHAPE OF GAMMA HASEEB ON NOTED. UNABLE TO DEFINITIVELY DETERMINE THE PRESENCE OF ATYPICAL BANDS. SUGGEST FOLLOW-UP IN 6-9 MONTHS IF PATIENT'S SYMPTOMS WARRANT. 15 REV'D BY Reji AMATO 16 ATYPICAL SHAPE OF GAMMA HASEEB ON NOTED. UNABLE TO DEFINITIVELY DETERMINE THE PRESENCE OF ATYPICAL BANDS. SUGGEST FOLLOW-UP IN 6-9 MONTHS IF PATIENT'S SYMPTOMS WARRANT. 17 REV'D BY Reji AMATO 18 Performed at: RN - [facility] [address] [id number] Help Desk Supervisor: Heide Lr MD, Phone: [phone] 19 Units are mL/min/1.73 m2 Chronic Kidney Disease Staging per NKF: Stage I & II GFR >=60 Normal to Mildly Decreased Stage III GFR 30-59 Moderately Decreased Stage IV GFR 15-29 Severely Decreased Stage V GFR <15 Very Little GFR Left ESRD GFR <15 on SKIP HOIST ENGINEER 20 Is patient fasting? Y 21 COMPLETE BLOOD COUNT 22 {A1] {HB] 23 COMPREHENSIVE METABOLIC PANE L 24 Male GFR Interprentation 20-49 yrs >60 mL/min [...] Normal Procedures Date Code Description Status 09/24/2020 05902 Office/Outpatient Established Lo w MDM 20-29 Min Completed 09/24/2020 06188 Admin Patient Focused Health Ris k Assessment Instrument Completed 09/24/2020 11048 Brief Emotional/Beha v Assessment W/ Scoring Doc [...] transmission Rita Rose MD 09/24/2020 Z79.899 Other correction (current) drug t herapy Rita Rose MD [...]
--- OUTSIDE RECORDS SUMMARY | 2021-04-07 10:41 | CCD | Continuity of Care Document ---
Author Author Rina RSOE MD Organization Unknown Address [address] [place] [address] Phone [phone] Care Team Providers Care Instructional Materials Director Name Role Phone Rita Rose MD AUTM [phone] [facility] Gastroenterology AUTM [phone] Erika Chandra AUTM [phone] [facility] [address] [facility] AUTM [phone] [facility] Behavioral Health AUTM [phone] Braulio Figueroa MD AUTM [phone] [facility] AUTM [facility] Breast Surgery; DR. Duarte AUTM [...] Carcinoma breast Rita Rose MD 02/12/2020 Pen [place] 3/16" 31G X 5 mm Misc use with basaglar pen once daily. 100units Rita Rose MD 0 10/17/2019 Trazodone HCL 100mg Tablets 1 tab by mouth daily at bedtime take 1/2 tablet by mouth in the morning and one tablet in the evening Will be prescribed by at [facility] 90tabs Pavel El MD 09/26/2019 Fenofibrate Micronized [...] other day(otc) Unknown Calcium 500 + D3 [id number] Ta blets 2 daily by mouth Unknown [...] CPT Code Status Date Vaccine Lot # [id number] Given 05/22/2019 HepB Adult (Engerix/Recombiv ax) 1mL Vacc [id number] Given 05/22/2019 Influenza (>= 6 Months) P.F. Vaccine [id number] Given 12/20/2018 HepB Adult (Engerix/Recombiv ax) 1mL Vacc [id number] Given 12/20/2018 Pneumococcal 13(Prevnar 13) Vaccine [id number] Given 08/18/2018 HepB Adult (Engerix/Recombiv ax) 1mL [...] Test Result H/L Range Note Urinalysis 03/13/2021 [facility] Urinalysis (SEE NOTE) 1, 2 Source R Color yellow Normal: Yellow Clarity clear Normal: Clear Spec [place] 1.010 1.001 - 1.030 pH 6 5 - 9 Glucose NORM Normal: Negative Bilirubin NEG Normal: Negative Ketone NEG Normal: Negative Protein 30 Normal: Negative Nitrite NEG Normal: Negative Blood NEG Normal: Negative Leuk Est NEG Normal: Negative Urobilinogen NOR less than 1.0 mg/dL Microscopic Not Indicate Laboratory test finding 03/13/2021 [facility] Hgba1c 8.2 % High 4.4 - 6.1 3 CBC With Differential 03/06/2021 [facility] White Blood Count 8.5 10 Normal 4.0-10.0 [...] 36.0-66.0 Lymph % 26.5 % Normal 24.0-44.0 [place] % 6.8 % Normal 2.0-8.0 Eos % 1.9 % Normal 0.0-3.0 Baso % 0.9 % Normal 0.0-1.0 Immature Granulocyte % 0.9 % Normal 0-3.0 Nucleated Red Blood Cell % 0.0 % Normal 0-0 Neutrophils # 5.3 10 Normal 1.5-8.5 Lymph # 2.3 10 Normal 1.5-5.0 [place] # 0.6 10 Normal 0.0-0.8 Eos # 0.2 10 Normal 0.0-0.5 Baso # 0.1 10 Normal 0.0-0.2 Comprehensive Metabolic Profil 03/06/2021 [facility] Glucose, Fasting 270 mg/dL High 70-100 Blood [...] Low 1.2-2.2 Total Iron Binding Capacit 03/06/2021 [facility] Iron (Fe) 55 g/dL Normal 50-170 Total Iron Binding Capacity 363 g/dL Normal 250-450 Percent Saturation 15.2 % Normal 13.2-45.0 Laboratory test finding 03/06/2021 [facility] Ferritin 37 NG/ML Normal 8-252 Laboratory test finding 12/09/2020 [facility] Bedside Glucose 160 mg/dL High 70-105 CBC With Differential 11/26/2020 [facility] White Blood Count 11.2 10 High 4.0-10.0 [...] 36.0-66.0 Lymph % 15.1 % Low 24.0-44.0 [place] % 6.7 % Normal 2.0-8.0 Eos % 1.6 % Normal 0.0-3.0 Baso % 0.7 % Normal 0.0-1.0 Immature Granulocyte % 0.9 % Normal 0-3.0 Nucleated Red Blood Cell % 0.0 % Normal 0-0 Neutrophils # 8.4 10 Normal 1.5-8.5 Lymph # 1.7 10 Normal 1.5-5.0 [place] # 0.8 10 Normal 0.0-0.8 Eos # 0.2 10 Normal 0.0-0.5 Baso # 0.1 10 Normal 0.0-0.2 Comprehensive Metabolic Profil 11/26/2020 [facility] Glucose, Fasting 204 mg/dL High 70-100 Blood [...] Low 1.2-2.2 Total Iron Binding Capacit 11/26/2020 [facility] Iron (Fe) 47 g/dL Low 50-170 Total Iron Binding Capacity 361 g/dL Normal 250-450 Percent Saturation 13.0 % Low 13.2-45.0 Laboratory test finding 11/26/2020 [facility] Ferritin 38 NG/ML Normal 8-252 FSH & LH Eval 11/26/2020 [facility] Follicle Stimulating Hormone 120.4 mIU/mL Normal 6 Luteinizing Hormone 52.8 mIU/mL Normal 7 Laboratory test finding 11/26/2020 [facility] Estradiol < 19.0 pg/mL Normal 8 Creatinine With GFR 11/06/2020 [facility] Creatinine For GFR 0.72 mg/dL Normal 0.55-1.30 Glomerular Filtration Rate > 60.0 Normal >51 9 Laboratory test finding 11/06/2020 [facility] Immunoglobulin A 250.0 mg/dL Normal 70-400 Alpha Fetoprotein Tumor Quant < 1.3 NG/ML Normal <8.1 10 Tissue Transglutaminase IgA <2 U/mL Normal 0-3 11 Liver Profile 11/06/2020 [facility] Ast/Sgot 35 U/L Normal 7-37 Alt/SGPT 61 U/L Normal 12-78 Alkaline Phosphatase 93 U/L Normal 45-117 Bilirubin,Total 0.2 mg/dL Normal 0.2-1.0 Bilirubin,Direct < 0.1 mg/dL Normal 0.0-0.2 Total Protein 7.4 GM/DL Normal 6.4-8.2 Albumin 3.9 GM/DL Normal 3.2-5.2 Albumin/Globulin Ratio 1.1 Low 1.2-2.2 Prothrombin Time/Inr 11/06/2020 [facility] Prothrombin Time 12.7 seconds Normal 12.5-14.3 Inr 0.93 Normal 12 Laboratory test finding 11/06/2020 [facility] Blood Urea Nitrogen 9 mg/dL Normal 7-18 Comprehensive Metabolic Profil 11/04/2020 [facility] Glucose, Fasting 128 mg/dL High 70-100 Blood [...] 1.0 Low 1.2-2.2 Laboratory test finding 11/04/2020 [facility] PTH Intact 13.3 pg/mL Low 18.5-88.0 Immunotyping (Immunofixation) Serum (If 11/04/2020 [facility] It Serum Interpretation SEE COMMENT Normal 14 Its Pathologist Review REV'D BY O ADJAP <SEE NOTE> Normal 15 Serum Protein Electrophoresis 11/04/2020 [facility] Albumin % 57.2 % Normal 55.8-66.1 Uqnby-2-Wjptojqk % 3.6 % Normal 2.9-4.9 Nqbin-4-Qfguvllwj % 10.8 % Normal 7.1-11.8 Payn-4-Dpsufmjkr % 6.5 % Normal 4.7-7.2 Usqy-4-Frnwxspkt % 5.6 % Normal 3.2-6.5 Gamma Globulin % 16.3 % Normal 11.1-18.8 Albumin 4.29 GM/DL Normal 3.29-5.55 Cwwha-5-Mujunhnut 0.27 GM/DL Normal 0.17-0.41 Eltmt-1-Wmedmiwwk 0.81 GM/DL Normal 0.42-0.99 Ucav-4-Gbvlofigh 0.49 GM/DL Normal 0.28-0.60 Swkr-0-Skkvfzhcg 0.42 GM/DL Normal 0.19-0.55 Gamma Globulins 1.22 GM/DL Normal 0.65-1.58 Total Protein 7.5 GM/DL Normal 6.4-8.2 Spep Interpretation SEE COMMENT Normal 16 Spep Pathologist Review REV'D BY Reji JESUS <SEE NOTE> Normal 17 Free [place] & Lambda LT Chains 11/04/2020 [facility] Free [place] Light Chains Serum 32.0 mg/L High 3.3-19.4 Free [place] Light Chains Serum 27.5 mg/L High 5.7-26.3 [place]/Lambda Ratio Serum 1.16 Normal 0.26-1.65 18 Comprehensive Metabolic Profil 10/27/2020 [facility] Glucose, Fasting 91 mg/dL Normal 70-100 Blood [...] 1.0 Low 1.2-2.2 Laboratory test finding 10/27/2020 [facility] Ferritin 34 NG/ML Normal 8-252 Total Iron Binding Capacit 10/27/2020 [facility] Iron (Fe) 63 g/dL Normal 50-170 Total Iron Binding Capacity 412 g/dL Normal 250-450 Percent Saturation 15.3 % Normal 13.2-45.0 CBC With Differential 10/27/2020 [facility] White Blood Count 10.4 10 High 4.0-10.0 [...] 36.0-66.0 Lymph % 35.7 % Normal 24.0-44.0 [place] % 6.4 % Normal 2.0-8.0 Eos % 1.8 % Normal 0.0-3.0 Baso % 1.0 % Normal 0.0-1.0 Immature Granulocyte % 0.6 % Normal 0-3.0 Nucleated Red Blood Cell % 0.0 % Normal 0-0 Neutrophils # 5.7 10 Normal 1.5-8.5 Lymph # 3.7 10 Normal 1.5-5.0 [place] # 0.7 10 Normal 0.0-0.8 Eos # 0.2 10 Normal 0.0-0.5 Baso # 0.1 10 Normal 0.0-0.2 CBC No Diff 09/24/2020 [facility] CBC No Diff (SEE NOTE) 20, 21 [...] 7.4 - 10.4 Laboratory test finding 09/24/2020 [facility] Hgba1c 7.6 % High 4.4 - 6.1 22 Comprehensive Metabolic Panel 09/24/2020 [facility] ospital Comprehensive Metabo (SEE NOTE) 23 Sodium [...] >60 mL/min 24 Laboratory test finding 09/24/2020 [facility] TSH Highly Sensitive 1.26 uIU/mL 0.47 - 5.01 Iron 62 g/dL 42 - 135 Hep C Antibody With Reflex Quant PCR 0.1 s/coratio 0.0 -0.9 HIV Panel 09/24/2020 [facility] HIV Screen 4thGeneration wRfx Non Reactive Non Reacti ve Laboratory test finding 09/24/2020 [facility] Syphilis NON-REACTIVE Normal:Non Reactive 1 {SOURCE: Random Void~NURSE COLLECTED? N 2 URINALYSIS 3 {A1] {HB] 4 Units are mL/min/1.73 m2 Chronic Kidney Disease Staging per NKF: Stage I & II GFR >=60 Normal to Mildly Decreased Stage III GFR 30-59 Moderately Decreased Stage IV GFR 15-29 Severely Decreased Stage V GFR <15 Very Little GFR Left ESRD GFR <15 on SUPERVISOR POWER REACTOR 5 Units are mL/min/1.73 m2 Chronic Kidney Disease Staging per NKF: Stage I & II GFR >=60 Normal to Mildly Decreased Stage III GFR 30-59 Moderately Decreased Stage IV GFR 15-29 Severely Decreased Stage V GFR <15 Very Little GFR Left ESRD GFR <15 on SUPERVISOR POWER REACTOR 6 NORMAL MENSTRUATING FEMALES: FOLLICULAR PHASE 2.5-10.2 [...] THE eESTRADIOL2 ASSAY IS PERFORMED ON THE [employer] BY CHEMILUMINESCENCE AND SHOULD NOT BE COMPARED [...] Little GFR Left ESRD GFR <15 on SUPERVISOR POWER REACTOR 10 THE AFP ASSAY IS PERFORMED O N THE T3 MOTIONAUR BY CHEMILUMINESCENCE AND SHOULD NOT BE COMPARED [...] for gluten sensitive enteropathy. Performed at: - [facility] [id number] [place] Knitter: Heide Lr MD, Phone: [phone] THERAPUTIC HUMAN INR VALUES INDICATIONS NORMAL [...] Little GFR Left ESRD GFR <15 on SUPERVISOR POWER REACTOR 14 ATYPICAL SHAPE OF GAMMA HASEEB ON [...] AMATO 18 Performed at: RN - [facility] [address] [id number] [place] Knitter: Heide Lr MD, Phone: [phone] Units are mL/min/1.73 m2 Chronic Kidney Disease Staging per NKF: Stage I & II GFR >=60 Normal to Mildly Decreased Stage III GFR 30-59 Moderately Decreased Stage IV GFR 15-29 Severely Decreased Stage V GFR <15 Very Little GFR Left ESRD GFR <15 on SUPERVISOR POWER REACTOR 20 Is patient fasting? Y 21 COMPLETE [...] Normal Procedures Date Code Description Status 09/24/2020 03827 Office/Outpatient Established Lo w MDM 20-29 Min Completed 09/24/2020 13070 Admin Patient Focused Health Ris k Assessment Instrument Completed 09/24/2020 31019 Brief Emotional/Beha v Assessment W/ Scoring Doc [...] for screening for othe r viral diseases Riat Rose MD 09/24/2020 Z11.3 Encounter for screen ing for infections with a predominantly sexual mode of transmission Rita Rose MD 09/24/2020 Z79.899 Other alf (current) drug t herapy Rita Rose MD [...]
--- OUTSIDE RECORDS SUMMARY | 2021-04-07 10:41 | CCD | Continuity of Care Document ---
Author Author Rina ROSE MD Organization Unknown Address [address] [place] [address] Phone [phone] Care Team Providers Care Diversional Therapist Name Role Phone Rita Rose MD AUTM [phone] [facility] Gastroenterology AUTM [phone] Erika Chandra AUTM [phone] [facility] AUTM [facility] Behavioral Health AUTM [phone] Braulio Figueroa MD AUTM [phone] [facility] AUTM [phone] [facility] Breast Surgery; DR. Duarte AUTM [phone] Problems Active Problems Provider Date Type 2 [...] 12/30/2019 Note: Diagnosed December 2019. ER and CT posi tive. Her 2 negative. Ki67 10% [...] SIG Qnty Indications Ordering Provide r Date Azithromycin 250mg Tablets two tablets orally today then 1 tablet orally daily 6tabs Rita best MD 02/27/2021 Semglee 100Unit/ML Solution Pen-In ject inject subcutaneously 20 units once a day 6ml E11.9 Rita ventura MD 09/24/2020 Cyclobenzaprine HCL 10mg Tablets take one tablet by mouth twice a day as needed for muscle spasm 90tabs Rita Rose MD 05/15/2020 Clonidine HCL 0.2mg Tablets take half tablet twice daily 30tabs Rita Rose MD 020 Amlodipine Besylate 10mg Tablets Take 1 Tablet By Mouth Once A Day 30tabs Rita Rose MD 05/15/2020 Ulticare Miscellaneous Use With Basaglar Pen Once Daily. 30unisabel Rose MD 04/16/2020 Mastectomy Bra/Prosthesis Dx- Left mastectomy for Carcinoma breast Rita Rose MD 02/12/2020 Pen [place] 316" 31G X 5 mm Misc use with basaglar pen once daily. 100unisabel Rose MD 0 10/17/2019 Trazodone HCL 100mg Tablets 1 tab by mouth daily at bedtime take 1/2 tablet by mouth in the morning and one tablet in the evening Will be prescribed by at [facility] 90tabs Pavel El MD 09/26/2019 Lisinopril 10mg Tablets take 1 tablet by mouth twice a day 60tabs Casey El MD 08/16/2019 Fenofibrate Micronized 67mg Capsul es take 1 capsule by mouth once a day 90caps Rita Rose MD 05/22/2019 Bupropion Hydrochloride ER (XL) 300mg Tablets ER 24HR Take 1 Tablet By Mouth Once A Day 30tabs Rita figueroa MD 01/09/2019 Atorvastatin Calcium 40mg Tablets take 1 tablet by mouth at bedtime 90tacamila Rose MD 08/18/2018 Nicotine Transdermal System Step 2 14mg/24HR Patches 24HR 1 patch to skin per day. Take off at night. 28unisabel Rose MD 07/28/2018 Metformin HCL 1000mg Tablets take 1 tablet by mouth twice a day 180tabs Rita Rose MD Clonazepam 0.5mg Tablets take 1/2 tablet by mouth in the morning and one tablet in the evening Will be prescribed by at [facility] from now on 45tabs Judson Novoa Gabapentin 300mg Capsules take 1 capsule by mouth three times a day 180caps Rita Rose MD Ferrousul 325(65Fe) mg Tablets 1 by mouth every other day(otc) Unknown Calcium 500 + D3 [id number]-Hzyp Ta blets 2 daily by mouth Unknown Exemestane 25mg Tablets Unknown Freestyle Lite Test Strips test blood sugars twice daily 200units Rita Rose MD 000 History Medications Trulicity 0.75mg/0.5 ML Solution Pen-Inject inject 0.75mg under the skin once weekly 2ml Rita Rose MD 09/25/2020 - 01/19/2021 Immunizations CPT Code Status Date Vaccine Lot # [id number] Given 05/22/2019 HepB Adult (Engerix/Recombiv ax) 1mL Vacc [id number] Given 05/22/2019 Influenza (>= 6 Months) P.F. Vaccine [id number] Given 12/20/2018 HepB Adult (Engerix/Recombiv ax) 1mL Vacc [id number] Given 12/20/2018 Pneumococcal 13(Prevnar 13) Vaccine [id number] Given 08/18/2018 HepB Adult (Engerix/Recombiv ax) 1mL Vacc [id number] Vital Signs Date Vital Result Comment 09/24/2020 9:29am BP Systolic 160 mmHg BP Diastolic 90 mmHg Heart Rate 59 /min Body Temperature 97.4 F Respiratory Rate 16 /min O2 % BldC Oximetry 98 % Weight 133.25 lb Weight 60.442 kg Height 62 inches 5'2" BMI (Body Mass Index) 24.4 kg/m2 BSA (Body Surface Area) 1.61 m2 05/15/2020 10:47am BP Systolic 142 mmHg BP Diastolic 68 mmHg Heart Rate 72 /min Body Temperature 97.0 F Respiratory Rate 18 /min O2 % BldC Oximetry 96 % Weight 128.12 lb Weight 58.117 kg Height 62 inches 5'2" BMI (Body Mass Index) 23.4 kg/m2 BSA (Body Surface Area) 1.58 m2 Results Test Acquired Date Facility Test Result H/L Range Note Comprehensive Metabolic Profil 03/06/2021 [facility] Glucose, Fasting 270 mg/dL High 70-100 Blood Urea Nitrogen 10 mg/dL Normal 7-18 Creatinine For GFR 0.92 mg/dL Normal 0.55-1.30 Glomerular Filtration Rate > 60.0 Normal >51 1 Sodium Level 135 mEq/L Low 136-145 Potassium [...] Low 1.2-2.2 Total Iron Binding Capacit 03/06/2021 [facility] Iron (Fe) 55 g/dL Normal 50-170 Total Iron Binding Capacity 363 g/dL Normal 250-450 Percent Saturation 15.2 % Normal 13.2-45.0 Laboratory test finding 03/06/2021 [facility] Ferritin 37 NG/ML Normal 8-252 CBC With Differential 03/06/2021 [facility] White Blood Count 8.5 10 Normal [...] 36.0-66.0 Lymph % 26.5 % Normal 24.0-44.0 [place] % 6.8 % Normal 2.0-8.0 Eos % 1.9 % Normal 0.0-3.0 Baso % 0.9 % Normal 0.0-1.0 Immature Granulocyte % 0.9 % Normal 0-3.0 Nucleated Red Blood Cell % 0.0 % Normal 0-0 Neutrophils # 5.3 10 Normal 1.5-8.5 Lymph # 2.3 10 Normal 1.5-5.0 [place] # 0.6 10 Normal 0.0-0.8 Eos # 0.2 10 Normal 0.0-0.5 Baso # 0.1 10 Normal 0.0-0.2 Laboratory test finding 12/09/2020 [facility] Bedside Glucose 160 mg/dL High 70-105 FSH & LH Eval 11/26/2020 [facility] Follicle Stimulating Hormone 120.4 mIU/mL Normal 2 Luteinizing Hormone 52.8 mIU/mL Normal 3 Laboratory test finding 11/26/2020 [facility] Estradiol < 19.0 pg/mL Normal 4 Laboratory test finding 11/26/2020 [facility] Ferritin 38 NG/ML Normal 8-252 Total Iron Binding Capacit 11/26/2020 [facility] Iron (Fe) 47 g/dL Low 50-170 Total Iron Binding Capacity 361 g/dL Normal 250-450 Percent Saturation 13.0 % Low 13.2-45.0 Comprehensive Metabolic Profil 11/26/2020 [facility] Glucose, Fasting 204 mg/dL High 70-100 [...] Normal 3.2-5.2 Albumin/Globulin Ratio 0.8 Low 1.2-2.2 CBC With Differential 11/26/2020 [facility] White Blood Count 11.2 10 High [...] 36.0-66.0 Lymph % 15.1 % Low 24.0-44.0 [place] % 6.7 % Normal 2.0-8.0 Eos % 1.6 % Normal 0.0-3.0 Baso % 0.7 % Normal 0.0-1.0 Immature Granulocyte % 0.9 % Normal 0-3.0 Nucleated Red Blood Cell % 0.0 % Normal 0-0 Neutrophils # 8.4 10 Normal 1.5-8.5 Lymph # 1.7 10 Normal 1.5-5.0 [place] # 0.8 10 Normal 0.0-0.8 Eos # 0.2 10 Normal 0.0-0.5 Baso # 0.1 10 Normal 0.0-0.2 Prothrombin Time/Inr 11/06/2020 [facility] Prothrombin Time 12.7 seconds Normal 12.5-14.3 Inr 0.93 Normal 6 Liver Profile 11/06/2020 [facility] Ast/Sgot 35 U/L Normal 7-37 Alt/SGPT 61 U/L Normal 12-78 Alkaline Phosphatase 93 U/L Normal 45-117 Bilirubin,Total 0.2 mg/dL Normal 0.2-1.0 Bilirubin,Direct < 0.1 mg/dL Normal 0.0-0.2 Total Protein 7.4 GM/DL Normal 6.4-8.2 Albumin 3.9 GM/DL Normal 3.2-5.2 Albumin/Globulin Ratio 1.1 Low 1.2-2.2 Laboratory test finding 11/06/2020 [facility] Blood Urea Nitrogen 9 mg/dL Normal 7-18 Creatinine With GFR 11/06/2020 [facility] Creatinine For GFR 0.72 mg/dL Normal 0.55-1.30 Glomerular Filtration Rate > 60.0 Normal >51 7 Laboratory test finding 11/06/2020 [facility] Immunoglobulin A 250.0 mg/dL Normal 70-400 Alpha Fetoprotein Tumor Quant < 1.3 NG/ML Normal <8.1 8 Tissue Transglutaminase IgA <2 U/mL Normal 0-3 9 Comprehensive Metabolic Profil 11/04/2020 [facility] Glucose, Fasting 128 mg/dL High 70-100 Blood Urea Nitrogen 12 mg/dL Normal 7-18 Creatinine For GFR 0.79 mg/dL Normal 0.55-1.30 Glomerular Filtration Rate > 60.0 Normal >51 1 0 Sodium Level 139 mEq/L Normal 136-145 Potassium [...] Normal 3.2-5.2 Albumin/Globulin Ratio 1.0 Low 1.2-2.2 Free [place] & Lambda LT Chains 11/04/2020 [facility] Free [place] Light Chains Serum 32.0 mg/L High 3.3-19.4 Free [place] Light Chains Serum 27.5 mg/L High 5.7-26.3 [place]/Lambda Ratio Serum 1.16 Normal 0.26-1.65 11 Serum Protein Electrophoresis 11/04/2020 [facility] Albumin % 57.2 % Normal 55.8-66.1 Cteqf-5-Zmzbijpk % 3.6 % Normal 2.9-4.9 Zyhir-9-Socakzkqr % 10.8 % Normal 7.1-11.8 Baxc-9-Ncqjphtqg % 6.5 % Normal 4.7-7.2 Iwud-7-Mulxayieo % 5.6 % Normal 3.2-6.5 Gamma Globulin % 16.3 % Normal 11.1-18.8 Albumin 4.29 GM/DL Normal 3.29-5.55 Qyswg-0-Hldclhaza 0.27 GM/DL Normal 0.17-0.41 Aqxuu-9-Igvqnrlfl 0.81 GM/DL Normal 0.42-0.99 Ibkb-2-Qfhphpxpd 0.49 GM/DL Normal 0.28-0.60 Fjdw-1-Aihmvzxnx 0.42 GM/DL Normal 0.19-0.55 Gamma Globulins 1.22 GM/DL Normal 0.65-1.58 Total Protein 7.5 GM/DL Normal 6.4-8.2 Spep Interpretation SEE COMMENT Normal 12 Spep Pathologist Review REV'D BY O ADJAP <SEE NOTE> Normal 13 Immunotyping (Immunofixation) Serum (If 11/04/2020 [facility] It Serum Interpretation SEE COMMENT Normal 14 Its Pathologist Review REV'D BY O ADJAP <SEE NOTE> Normal 15 Laboratory test finding 11/04/2020 [facility] PTH Intact 13.3 pg/mL Low 18.5-88.0 CBC With Differential 10/27/2020 [facility] White Blood Count 10.4 10 High [...] 36.0-66.0 Lymph % 35.7 % Normal 24.0-44.0 [place] % 6.4 % Normal 2.0-8.0 Eos % 1.8 % Normal 0.0-3.0 Baso % 1.0 % Normal 0.0-1.0 Immature Granulocyte % 0.6 % Normal 0-3.0 Nucleated Red Blood Cell % 0.0 % Normal 0-0 Neutrophils # 5.7 10 Normal 1.5-8.5 Lymph # 3.7 10 Normal 1.5-5.0 [place] # 0.7 10 Normal 0.0-0.8 Eos # 0.2 10 Normal 0.0-0.5 Baso # 0.1 10 Normal 0.0-0.2 Comprehensive Metabolic Profil 10/27/2020 [facility] Glucose, Fasting 91 mg/dL Normal 70-100 Blood Urea Nitrogen 13 mg/dL Normal 7-18 Creatinine For GFR 0.98 mg/dL Normal 0.55-1.30 Glomerular Filtration Rate > 60.0 Normal >51 1 6 Sodium Level 137 mEq/L Normal 136-145 [...] Low 1.2-2.2 Total Iron Binding Capacit 10/27/2020 [facility] Iron (Fe) 63 g/dL Normal 50-170 Total Iron Binding Capacity 412 g/dL Normal 250-450 Percent Saturation 15.3 % Normal 13.2-45.0 Laboratory test finding 10/27/2020 [facility] Ferritin 34 NG/ML Normal 8-252 CBC No Diff 09/24/2020 [facility] CBC No Diff (SEE NOTE) 17, 18 WBC 7.9 10^3/uL 4.2 - 11.0 RBC [...] 7.4 - 10.4 Laboratory test finding 09/24/2020 [facility] l Hgba1c 7.6 % High 4.4 - 6.1 19 Comprehensive Metabolic Panel 09/24/2020 [facility] Comprehensive Metabo (SEE NOTE) 20 Sodium 135 mEq/L 134 - 153 Potassium [...] >60 mL/min Afr Amer GFR >60 mL/min 21 Laboratory test finding 09/24/2020 [facility] l TSH Highly Sensitive 1.26 uIU/mL 0.47 - 5.01 Iron 62 g/dL 42 - 135 Hep C Antibody With Reflex Quant PCR 0.1 s/coratio 0.0 -0.9 HIV Panel 09/24/2020 [facility] HIV Screen 4thGeneration wRfx Non Reactive Non Reacti ve Laboratory test finding 09/24/2020 [facility] l Syphilis NON-REACTIVE Normal:Non Reactive 1 Units are mL/min/1.73 m2 Chronic Kidney Disease Staging per NKF: Stage I & II GFR >=60 Normal to Mildly Decreased Stage III GFR 30-59 Moderately Decreased Stage IV GFR 15-29 Severely Decreased Stage V GFR <15 Very Little GFR Left ESRD GFR <15 on STAINED GLASS PAINTER 2 NORMAL MENSTRUATING FEMALES: FOLLICULAR PHASE 2.5-10.2 mIU/mL MID CYCLE PEAK 3.4-33.4 mIU/mL LUTEAL PHASE 1.5-9.1 mIU/mL : <0.3 mIU/mL POST MENOPAUSAL FEMALES: 23.0-116.3 mIU/mL 3 NORMAL MENSTRUATING FEMALES: FOLLICULAR PHASE 1.9-12.5 mIU/mL MID CYCLE PEAK 8.7-76.3 mIU/mL LUTEAL PHASE 0.5-16.9 mIU/mL <1.5 mIU/mL POST MENOPAUSAL FEMALES: 15.9-54.0 mIU/mL CONTRACEPTIVES 0.7-5.6 mIU/mL 4 NORMAL MENSTRUATING FEMALES: FOLLICULAR PHASE 19.5-144.2 PG/ML MID CYCLE PEAK 63.9-356.7 PG/ML LUTEAL PHASE 55.8-214.2 PG/ML POST MENOPAUSAL FEMALES <32.2 PG/ML (UNTREATED) THE eESTRADIOL2 ASSAY IS PERFORMED ON THE [place] BY CHEMILUMINESCENCE AND SHOULD NOT BE COMPARED INTERCHANGEABLY WITH OTHER METHODS. Falsely elevated Estradiol test results can be seen in patients treated with fulvestrant (Faslodex). Estradiol concentrations in fulvestrant treated women should only be measured by LC-MS (Liquid Chromatography-Mass Spectrometry). 5 Units are mL/min/1.73 m2 Chronic Kidney Disease Staging per NKF: Stage I & II GFR >=60 Normal to Mildly Decreased Stage III GFR 30-59 Moderately Decreased Stage IV GFR 15-29 Severely Decreased Stage V GFR <15 Very Little GFR Left ESRD GFR <15 on STAINED GLASS PAINTER 6 THERAPUTIC HUMAN INR VALUES INDICATIONS NORMAL RANGES PROPHYLAXIS/TREATMENT OF: VENOUS THROMBOSIS 2.0-3.0 PULMONARY EMBOLISM 2.0-3.0 PREVENTION OF SYSTEMIC EMBOLISM FROM: TISSUE HEART VALVES 2.0-3.0 ACUTE MYOCARDIAL INFARCTION 2.0-3.0 VALVULAR HEART DISEASE 2.0-3.0 ATRIAL FIBRILLATION 2.0-3.0 MECHANICAL VALVES(HIGH RISK) 2.5-3.5 RECURRENT MYOCARDIAL INFARCTION 2.5-3.5 7 Units are mL/min/1.73 m2 Chronic Kidney Disease Staging per NKF: Stage I & II GFR >=60 Normal to Mildly Decreased Stage III GFR 30-59 Moderately Decreased Stage IV GFR 15-29 Severely Decreased Stage V GFR <15 Very Little GFR Left ESRD GFR <15 on STAINED GLASS PAINTER 8 THE AFP ASSAY IS PERFORMED O N THE [place] BY CHEMILUMINESCENCE AND SHOULD NOT BE COMPARED INTERCHANGEABLY WITH OTHER METHODS. IT SHOULD NOT BE USED ALONE A SCREENING TEST OR DIAGNOSIS FOR THE PRESENCE OR ABSENCE OF MALIGNANT DISEASE. THESE RESULTS ARE NOT INTERPRETABLE IN FEMALES. PREDICTIONS OF DISEASE RECURRENCE SHOULD NOT BE BASED SOLELY ON VALUES OBTAINED FROM SERIAL PATIENT SERUM VALUES. 9 Negative 0 - 3 Weak Positive 4 - 10 Positive >10 . Tissue Transglutaminase (tTG) has been identified as the endomysial antigen. Studies have demonstr- ated that endomysial IgA antibodies have over 99% specificity for gluten sensitive enteropathy. Performed at: [facility] [employer] [id number] Air Surveillance Operator: Heide Lr MD, Phone: [phone] 10 Units are mL/min/1.73 m2 Chronic Kidney Disease Staging per NKF: Stage I & II GFR >=60 Normal to Mildly Decreased Stage III GFR 30-59 Moderately Decreased Stage IV GFR 15-29 Severely Decreased Stage V GFR <15 Very Little GFR Left ESRD GFR <15 on STAINED GLASS PAINTER 11 Performed at: [facility] [employer] [address] [id number] Air Surveillance Operator: Heide Lr MD, Phone: [phone] 12 ATYPICAL SHAPE OF GAMMA HASEEB ON NOTED. UNABLE TO DEFINITIVELY DETERMINE THE PRESENCE OF ATYPICAL BANDS. SUGGEST FOLLOW-UP IN 6-9 MONTHS IF PATIENT'S SYMPTOMS WARRANT. 13 REV'D BY Reji AMATO 14 ATYPICAL SHAPE OF GAMMA HASEEB ON NOTED. UNABLE TO DEFINITIVELY DETERMINE THE PRESENCE OF ATYPICAL BANDS. SUGGEST FOLLOW-UP IN 6-9 MONTHS IF PATIENT'S SYMPTOMS WARRANT. 15 REV'D BY Reji AMATO 16 Units are mL/min/1.73 m2 Chronic Kidney Disease Staging per NKF: Stage I & II GFR >=60 Normal to Mildly Decreased Stage III GFR 30-59 Moderately Decreased Stage IV GFR 15-29 Severely Decreased Stage V GFR <15 Very Little GFR Left ESRD GFR <15 on STAINED GLASS PAINTER 17 Is patient fasting? Y 18 COMPLETE BLOOD COUNT 19 {A1] {HB] 20 COMPREHENSIVE METABOLIC PANE L 21 Male GFR Interprentation 20-49 yrs >60 mL/min [...] Normal Procedures Date Code Description Status 09/24/2020 76383 Office/Outpatient Established Lo w MDM 20-29 Min Completed 09/24/2020 48173 Admin Patient Focused Health Ris k Assessment Instrument Completed 09/24/2020 02435 Brief Emotional/Beha v Assessment W/ Scoring Doc Per Standard Inst Completed Medical Devices Description No Information Available Encounters Description No Information Available Assessments Date Code Description Provider 09/24/2020 R53.83 Other fatigue Rita watkins MD 09/24/2020 E11.9 Type 2 diabetes mellitus without complications Rita Rose MD 09/24/2020 E61.1 Iron deficiency Rita watkins MD 09/24/2020 Z11.59 Encounter for screening for othe r viral diseases Rita Rose MD 09/24/2020 Z11.3 Encounter for screen ing for infections with a predominantly sexual mode of transmission Rita Rose MD 09/24/2020 Z79.899 Other terminal make up operator (current) drug t herapy Rita Rose MD Plan of Treatment Future Appointment(s):* 03/13/2021 9:40 am - Rita Rose MD at [facility] 09/24/2020 - Rita Rose MD* R53.83 Other fatigue * E11.9 Type 2 diabetes mellitus without complications* New Medication:* Semglee 100 Unit/ML - inject subcutaneously 20 units once a day * E61.1 Iron deficiency * Z11.59 Encounter for screening for other viral diseases * Z11.3 Encounter for screening for infections with a predominantly sexual mode of transmission * Z79.899 Other longterm (current) drug therapy * All * Recommendations:* Fatigue could be from uncontrolled sugars. Will check A1c. If high will add trulicity. Jennyglannabel switched to Semglee due to insurance. Taper and d/c metoprolol. She has been taking only 0.2 mg clonidine once at night. Continue that. Restart amlodipine. Monitor BP at home. Check for anemia and hypothyroidism. She requested HIV, syphilis and Hep C testing. She has mammogram scheduled for December 2020. Functional Status Functional Condition Comment Date Status Glasses Active Mental Status Description No Information Available Referrals Refer to Reason for Referral Status Appt Date Anxiety Sent
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
--- OUTSIDE RECORDS SUMMARY | 2021-04-07 10:41 | CCD | Continuity of Care Document ---
Author Author Rina ROSE MD Organization Unknown Address [address] [place] [address] Phone [phone] Care Team Providers Care Tester/Lift Trucker Name Role Phone Rita Rose MD AUTM [phone] [facility] Gastroenterology AUTM [phone] Erika Chandra AUTM [phone] [facility] AUTM [facility] Behavioral Health AUTM [phone] Braulio Figueroa MD AUTM [phone] [facility] AUTM [phone] [facility] Breast Surgery; DR. Duarte AUTM Problems [...] Carcinoma breast Rita Rose MD 02/12/2020 Pen Kinzers 3/16" 31G X 5 mm Misc use with basaglar pen once daily. 100units Rita Rose MD 0 10/17/2019 Trazodone HCL 100mg Tablets 1 tab by mouth daily at bedtime take 1/2 tablet by mouth in the morning and one tablet in the evening Will be prescribed by at [facility] 90tabs Pavel El MD 09/26/2019 Fenofibrate Micronized [...] other day(otc) Unknown Calcium 500 + D3 [id number] Ta blets 2 daily by mouth Unknown [...] CPT Code Status Date Vaccine Lot # [id number] Given 05/22/2019 HepB Adult (Engerix/Recombiv ax) 1mL Vacc [id number] Given 05/22/2019 Influenza (>= 6 Months) P.F. Vaccine [id number] Given 12/20/2018 HepB Adult (Engerix/Recombiv ax) 1mL Vacc [id number] Given 12/20/2018 Pneumococcal 13(Prevnar 13) Vaccine [id number] Given 08/18/2018 HepB Adult (Engerix/Recombiv ax) 1mL [...] Date Facility Test Result H/L Range Note Laboratory test finding 03/13/2021 [facility] l Hgba1c <pending> CBC With Differential 03/06/2021 [facility] White Blood Count 8.5 10 Normal [...] 36.0-66.0 Lymph % 26.5 % Normal 24.0-44.0 [place] % 6.8 % Normal 2.0-8.0 Eos % 1.9 % Normal 0.0-3.0 Baso % 0.9 % Normal 0.0-1.0 Immature Granulocyte % 0.9 % Normal 0-3.0 Nucleated Red Blood Cell % 0.0 % Normal 0-0 Neutrophils # 5.3 10 Normal 1.5-8.5 Lymph # 2.3 10 Normal 1.5-5.0 Valencia # 0.6 10 Normal 0.0-0.8 Eos # 0.2 10 Normal 0.0-0.5 Baso # 0.1 10 Normal 0.0-0.2 Comprehensive Metabolic Profil 03/06/2021 [facility] Glucose, Fasting 270 mg/dL High 70-100 [...] Low 1.2-2.2 Total Iron Binding Capacit 03/06/2021 [facility] Iron (Fe) 55 g/dL Normal 50-170 Total Iron Binding Capacity 363 g/dL Normal 250-450 Percent Saturation 15.2 % Normal 13.2-45.0 Laboratory test finding 03/06/2021 [facility] Ferritin 37 NG/ML Normal 8-252 Laboratory test finding 12/09/2020 [facility] Bedside Glucose 160 mg/dL High 70-105 CBC With Differential 11/26/2020 [facility] White Blood Count 11.2 10 High [...] 36.0-66.0 Lymph % 15.1 % Low 24.0-44.0 Valencia % 6.7 % Normal 2.0-8.0 Eos % 1.6 % Normal 0.0-3.0 Baso % 0.7 % Normal 0.0-1.0 Immature Granulocyte % 0.9 % Normal 0-3.0 Nucleated Red Blood Cell % 0.0 % Normal 0-0 Neutrophils # 8.4 10 Normal 1.5-8.5 Lymph # 1.7 10 Normal 1.5-5.0 Valencia # 0.8 10 Normal 0.0-0.8 Eos # 0.2 10 Normal 0.0-0.5 Baso # 0.1 10 Normal 0.0-0.2 Comprehensive Metabolic Profil 11/26/2020 [facility] Glucose, Fasting 204 mg/dL High 70-100 Blood Urea Nitrogen 10 mg/dL Normal 7-18 Creatinine For GFR 0.87 mg/dL Normal 0.55-1.30 Glomerular Filtration Rate > 60.0 Normal >51 2 Sodium Level 137 mEq/L Normal 136-145 Potassium [...] Low 1.2-2.2 Total Iron Binding Capacit 11/26/2020 [facility] Iron (Fe) 47 g/dL Low 50-170 Total Iron Binding Capacity 361 g/dL Normal 250-450 Percent Saturation 13.0 % Low 13.2-45.0 Laboratory test finding 11/26/2020 [facility] Ferritin 38 NG/ML Normal 8-252 FSH & LH Eval 11/26/2020 [facility] Follicle Stimulating Hormone 120.4 mIU/mL Normal 3 Luteinizing Hormone 52.8 mIU/mL Normal 4 Laboratory test finding 11/26/2020 [facility] Estradiol < 19.0 pg/mL Normal 5 Creatinine With GFR 11/06/2020 [facility] Creatinine For GFR 0.72 mg/dL Normal 0.55-1.30 Glomerular Filtration Rate > 60.0 Normal >51 6 Laboratory test finding 11/06/2020 [facility] Immunoglobulin A 250.0 mg/dL Normal 70-400 Alpha Fetoprotein Tumor Quant < 1.3 NG/ML Normal <8.1 7 Tissue Transglutaminase IgA <2 U/mL Normal 0-3 8 Liver Profile 11/06/2020 [facility] Ast/Sgot 35 U/L Normal 7-37 Alt/SGPT 61 U/L Normal 12-78 Alkaline Phosphatase 93 U/L Normal 45-117 Bilirubin,Total 0.2 mg/dL Normal 0.2-1.0 Bilirubin,Direct < 0.1 mg/dL Normal 0.0-0.2 Total Protein 7.4 GM/DL Normal 6.4-8.2 Albumin 3.9 GM/DL Normal 3.2-5.2 Albumin/Globulin Ratio 1.1 Low 1.2-2.2 Prothrombin Time/Inr 11/06/2020 [facility] Prothrombin Time 12.7 seconds Normal 12.5-14.3 Inr 0.93 Normal 9 Laboratory test finding 11/06/2020 [facility] Blood Urea Nitrogen 9 mg/dL Normal 7-18 Comprehensive Metabolic Profil 11/04/2020 [facility] Glucose, Fasting 128 mg/dL High 70-100 [...] 1.0 Low 1.2-2.2 Laboratory test finding 11/04/2020 [facility] PTH Intact 13.3 pg/mL Low 18.5-88.0 Immunotyping (Immunofixation) Serum (If 11/04/2020 [facility] It Serum Interpretation SEE COMMENT Normal 11 Its Pathologist Review REV'D BY O ADJAP <SEE NOTE> Normal 12 Serum Protein Electrophoresis 11/04/2020 [facility] Albumin % 57.2 % Normal 55.8-66.1 Lwmgf-7-Zowmylug % 3.6 % Normal 2.9-4.9 Tzddh-9-Ckkqgiize % 10.8 % Normal 7.1-11.8 Fngk-9-Rpqbxbyus % 6.5 % Normal 4.7-7.2 Elxq-9-Kmdgqgtjw % 5.6 % Normal 3.2-6.5 Gamma Globulin % 16.3 % Normal 11.1-18.8 Albumin 4.29 GM/DL Normal 3.29-5.55 Dygut-2-Rmxwtnvuv 0.27 GM/DL Normal 0.17-0.41 Euhdp-6-Stlzabrkn 0.81 GM/DL Normal 0.42-0.99 Qxjd-7-Qeccnkhox 0.49 GM/DL Normal 0.28-0.60 Itzt-8-Vktbwldje 0.42 GM/DL Normal 0.19-0.55 Gamma Globulins 1.22 GM/DL Normal 0.65-1.58 Total Protein 7.5 GM/DL Normal 6.4-8.2 Spep Interpretation SEE COMMENT Normal 13 Spep Pathologist Review REV'D BY O ADJAP <SEE NOTE> Normal 14 Free [place] & Lambda LT Chains 11/04/2020 [facility] Free [place] Light Chains Serum 32.0 mg/L High 3.3-19.4 Free Lambda Light Chains Serum 27.5 mg/L High 5.7-26.3 [place]/Lambda Ratio Serum 1.16 Normal 0.26-1.65 15 Comprehensive Metabolic Profil 10/27/2020 [facility] Glucose, Fasting 91 mg/dL Normal 70-100 [...] 1.0 Low 1.2-2.2 Laboratory test finding 10/27/2020 [facility] Ferritin 34 NG/ML Normal 8-252 Total Iron Binding Capacit 10/27/2020 [facility] Iron (Fe) 63 g/dL Normal 50-170 Total Iron Binding Capacity 412 g/dL Normal 250-450 Percent Saturation 15.3 % Normal 13.2-45.0 CBC With Differential 10/27/2020 [facility] White Blood Count 10.4 10 High [...] 36.0-66.0 Lymph % 35.7 % Normal 24.0-44.0 Valencia % 6.4 % Normal 2.0-8.0 Eos % 1.8 % Normal 0.0-3.0 Baso % 1.0 % Normal 0.0-1.0 Immature Granulocyte % 0.6 % Normal 0-3.0 Nucleated Red Blood Cell % 0.0 % Normal 0-0 Neutrophils # 5.7 10 Normal 1.5-8.5 Lymph # 3.7 10 Normal 1.5-5.0 Valencia # 0.7 10 Normal 0.0-0.8 Eos # 0.2 10 Normal 0.0-0.5 Baso # 0.1 10 Normal 0.0-0.2 CBC No Diff 09/24/2020 [facility] CBC No Diff (SEE NOTE) 17, 18 [...] - 6.1 19 Comprehensive Metabolic Panel 09/24/2020 [facility] ospital Comprehensive Metabo (SEE NOTE) 20 Sodium [...] >60 mL/min 21 Laboratory test finding 09/24/2020 [facility] TSH Highly Sensitive 1.26 uIU/mL 0.47 - 5.01 Iron 62 g/dL 42 - 135 Hep C Antibody With Reflex Quant PCR 0.1 s/coratio 0.0 -0.9 HIV Panel 09/24/2020 [facility] HIV Screen 4thGeneration wRfx Non Reactive Non Reacti ve Laboratory test finding 09/24/2020 [facility] Syphilis NON-REACTIVE Normal:Non Reactive 1 Units are mL/min/1.73 m2 Chronic Kidney Disease Staging per NKF: Stage I & II GFR >=60 Normal to Mildly Decreased Stage III GFR 30-59 Moderately Decreased Stage IV GFR 15-29 Severely Decreased Stage V GFR <15 Very Little GFR Left ESRD GFR <15 on CYTOGENETIC TECHNICIAN 2 Units are mL/min/1.73 m2 Chronic Kidney Disease Staging per NKF: Stage I & II GFR >=60 Normal to Mildly Decreased Stage III GFR 30-59 Moderately Decreased Stage IV GFR 15-29 Severely Decreased Stage V GFR <15 Very Little GFR Left ESRD GFR <15 on CYTOGENETIC TECHNICIAN 3 NORMAL MENSTRUATING FEMALES: FOLLICULAR PHASE 2.5-10.2 mIU/mL MID CYCLE PEAK 3.4-33.4 mIU/mL LUTEAL PHASE 1.5-9.1 mIU/mL : <0.3 mIU/mL POST MENOPAUSAL FEMALES: 23.0-116.3 mIU/mL 4 NORMAL MENSTRUATING FEMALES: FOLLICULAR PHASE 1.9-12.5 mIU/mL MID CYCLE PEAK 8.7-76.3 mIU/mL LUTEAL PHASE 0.5-16.9 mIU/mL <1.5 mIU/mL POST MENOPAUSAL FEMALES: 15.9-54.0 mIU/mL CONTRACEPTIVES 0.7-5.6 mIU/mL 5 NORMAL MENSTRUATING FEMALES: FOLLICULAR PHASE 19.5-144.2 PG/ML MID CYCLE PEAK 63.9-356.7 PG/ML LUTEAL PHASE 55.8-214.2 PG/ML POST MENOPAUSAL FEMALES <32.2 PG/ML (UNTREATED) THE eESTRADIOL2 ASSAY IS PERFORMED ON THE [place] [employer] BY CHEMILUMINESCENCE AND SHOULD NOT BE COMPARED INTERCHANGEABLY WITH OTHER METHODS. Falsely elevated Estradiol test results can be seen in patients treated with fulvestrant (Faslodex). Estradiol concentrations in fulvestrant treated women should only be measured by LC-MS (Liquid Chromatography-Mass Spectrometry). 6 Units are mL/min/1.73 m2 Chronic Kidney Disease Staging per NKF: Stage I & II GFR >=60 Normal to Mildly Decreased Stage III GFR 30-59 Moderately Decreased Stage IV GFR 15-29 Severely Decreased Stage V GFR <15 Very Little GFR Left ESRD GFR <15 on CYTOGENETIC TECHNICIAN 7 THE AFP ASSAY IS PERFORMED O N THE [place] BY CHEMILUMINESCENCE AND SHOULD NOT BE COMPARED INTERCHANGEABLY WITH OTHER METHODS. IT SHOULD NOT BE USED ALONE A SCREENING TEST OR DIAGNOSIS FOR THE PRESENCE OR ABSENCE OF MALIGNANT DISEASE. THESE RESULTS ARE NOT INTERPRETABLE IN FEMALES. PREDICTIONS OF DISEASE RECURRENCE SHOULD NOT BE BASED SOLELY ON VALUES OBTAINED FROM SERIAL PATIENT SERUM VALUES. 8 Negative 0 - 3 Weak Positive 4 - 10 Positive >10 . Tissue Transglutaminase (tTG) has been identified as the endomysial antigen. Studies have demonstr- ated that endomysial IgA antibodies have over 99% specificity for gluten sensitive enteropathy. Performed at: - [facility] [address] [id number] It Infrastructure Consultant: Heide Lr MD, Phone: [phone] THERAPUTIC HUMAN INR VALUES INDICATIONS NORMAL RANGES PROPHYLAXIS/TREATMENT OF: VENOUS THROMBOSIS 2.0-3.0 PULMONARY EMBOLISM 2.0-3.0 PREVENTION OF SYSTEMIC EMBOLISM FROM: TISSUE HEART VALVES 2.0-3.0 ACUTE MYOCARDIAL INFARCTION 2.0-3.0 VALVULAR HEART DISEASE 2.0-3.0 ATRIAL FIBRILLATION 2.0-3.0 MECHANICAL VALVES(HIGH RISK) 2.5-3.5 RECURRENT MYOCARDIAL INFARCTION 2.5-3.5 10 Units are mL/min/1.73 m2 Chronic Kidney Disease Staging per NKF: Stage I & II GFR >=60 Normal to Mildly Decreased Stage III GFR 30-59 Moderately Decreased Stage IV GFR 15-29 Severely Decreased Stage V GFR <15 Very Little GFR Left ESRD GFR <15 on CYTOGENETIC TECHNICIAN 11 ATYPICAL SHAPE OF GAMMA HASEEB ON NOTED. UNABLE TO DEFINITIVELY DETERMINE THE PRESENCE OF ATYPICAL BANDS. SUGGEST FOLLOW-UP IN 6-9 MONTHS IF PATIENT'S SYMPTOMS WARRANT. 12 REV'D BY Reji AMATO 13 ATYPICAL SHAPE OF GAMMA HASEEB ON NOTED. UNABLE TO DEFINITIVELY DETERMINE THE PRESENCE OF ATYPICAL BANDS. SUGGEST FOLLOW-UP IN 6-9 MONTHS IF PATIENT'S SYMPTOMS WARRANT. 14 REV'D BY Reji AMATO 15 Performed at: RN - [facility] [address] [id number] It Infrastructure Consultant: Heide Lr MD, Phone: [phone] Units are mL/min/1.73 m2 Chronic Kidney Disease Staging per NKF: Stage I & II GFR >=60 Normal to Mildly Decreased Stage III GFR 30-59 Moderately Decreased Stage IV GFR 15-29 Severely Decreased Stage V GFR <15 Very Little GFR Left ESRD GFR <15 on CYTOGENETIC TECHNICIAN 17 Is patient fasting? Y 18 COMPLETE [...] Normal Procedures Date Code Description Status 09/24/2020 87987 Office/Outpatient Established Lo w MDM 20-29 Min Completed 09/24/2020 24950 Admin Patient Focused Health Ris k Assessment Instrument Completed 09/24/2020 58592 Brief Emotional/Beha v Assessment W/ Scoring Doc Per Standard Inst Completed Medical Devices Description No Information Available Encounters Description No Information Available Assessments Date Code Description Provider 03/13/2021 E11.9 Type 2 diabetes mellitus without complications Rita Rose MD 09/24/2020 R53.83 Other fatigue Rita watkins MD 09/24/2020 E11.9 Type 2 diabetes mellitus without complications Rita Rose MD 09/24/2020 E61.1 Iron deficiency Rita watkins MD 09/24/2020 Z11.59 Encounter for screening for othe r viral diseases Rita Rose MD 09/24/2020 Z11.3 Encounter for screen ing for infections with a predominantly sexual mode of transmission Rita Rose MD 09/24/2020 Z79.899 Other vermin exterminator (current) drug t herapy Rita Rose MD Plan of Treatment 03/13/2021 - Rita Rose MD* E11.9 Type 2 diabetes mellitus without complications * All * New Medication:* Albuterol Sulfate [...] 30 mg - 1 by mouth dialy Functional Status Functional Condition Comment Date Status Glasses Active Mental Status Description No Information Available Referrals Refer to Reason for Referral Status Appt Date Anxiety Sent
--- OUTSIDE RECORDS SUMMARY | 2021-04-07 10:41 | CCD ---
Author Author [employer] Organization [employer] Address Unknown Phone Unavailable Care Team Providers Care Instrument And Control Technician Name Role Phone Ty Decker Unavailable PROBLEMS Type Condition ICD9-CM Code [id number] Code Onset Dates Condition S tatus W/U Status Risk SNOMED Code Notes Problem Renal lesion N28.9 Active confirmed 4741325 00 Problem Preop testing Z01.818 Active confirmed 47681 9001 Problem Smoker F17.200 Active confirmed 81419507 Problem Cirrhosis K74.60 Active confirmed 98469256 Problem Breast cancer, left C50.912 Active confirmed 190221218 ALLERGIES No Known Allergies ENCOUNTERS from 1965 to 2021-02-17 Encounter Location Date Provider Diagnosis [facility] [address] [phone] [place] [address] Feb, Ty Decker IMMUNIZATIONS No Information SOCIAL [...] Information RESULTS No Results REASON FOR VISIT No Information MEDICAL (GENERAL) HISTORY Type Description Date Medical [...] Provider Name:Amara Juarez, 2021-06-19 09:30:00 AM, [address], , [place], [address], Insurance Providers Payer Name Payer Address Payer Phone Insured Name Patient Relati onship to Insured Coverage Start Date Coverage End Date [facility] [employer] CLAIM[employer] DEPT [address] [place] [phone] VICKIE SINHA
--- OUTSIDE RECORDS SUMMARY | 2021-04-07 10:42 | CCD ---
Author Author [facility] Organization [facility] Address Unknown Phone Unavailable Care Team Providers Care Icu Rn Name Role Phone Irving DOUGLASS MD Unavailable Unavailable Irving DOUGLASS MD Unavailable Unavailable Irving DOUGLASS MD Unavailable Unavailable Irving DOUGLASS MD Unavailable Unavailable Irving DOUGLASS MD Unavailable Unavailable Irving DOUGLASS MD Unavailable Unavailable Irving DOUGLASS MD Unavailable Unavailable Irving DOUGLASS MD Unavailable Unavailable Irving DOUGLASS MD Unavailable Unavailable Irving DOUGLASS MD Unavailable Unavailable Irving DOUGLASS MD Unavailable Unavailable Irving DOUGLASS MD Unavailable Unavailable Irving DOUGLASS MD Unavailable Unavailable Irving DOUGLASS MD Unavailable Unavailable Mkiie GAFFNEY MD Unavailable Unavailable Mikie GAFFNEY MD Unavailable Unavailable Mikie GAFFNEY MD Unavailable Unavailable Mikie GAFFNEY MD Unavailable Unavailable Mikie GAFFNEY MD Unavailable Unavailable Mikie GAFFNEY MD Unavailable Unavailable Mikie GAFFNEY MD Unavailable Unavailable Mikie GAFFNEY MD Unavailable Unavailable Mikie GAFFNEY MD Unavailable Unavailable Mikie GAFFNEY MD Unavailable Unavailable Mikie GAFFNEY MD Unavailable Unavailable Mikie GAFFNEY MD Unavailable Unavailable Mikie GAFFNEY MD Unavailable Unavailable Mikie GAFFNEY MD Unavailable Unavailable Mikie GAFFNEY MD Unavailable Unavailable Mikie GAFFNEY MD Unavailable Unavailable Mikie GAFFNEY MD Unavailable Unavailable Mikie GAFFNEY MD Unavailable Unavailable Mikie GAFFNEY MD Unavailable Unavailable Mikie GAFFNEY MD Unavailable Unavailable Mikie GAFFNEY MD Unavailable Unavailable Mikie GAFFNEY MD Unavailable Unavailable Mikie GAFFNEY MD Unavailable Unavailable Mikie GAFFNEY MD Unavailable Unavailable Mikie GAFFNEY MD Unavailable Unavailable Mikie GAFFNEY MD Unavailable Unavailable Mikie GAFFNEY MD Unavailable Unavailable Mikie GAFFNEY MD Unavailable Unavailable Mikie GAFFNEY MD Unavailable Unavailable Mikie GAFFNEY MD Unavailable Unavailable Mikie GAFFNEY MD Unavailable Unavailable Mikie GAFFNEY MD Unavailable Unavailable Mikie GAFFNEY MD Unavailable Unavailable Mikie GAFFNEY MD Unavailable Unavailable Mikie GAFFNEY MD Unavailable Unavailable Mikie GAFFNEY MD Unavailable Unavailable Mikie GAFFNEY MD Unavailable Unavailable Mikie GAFFNEY MD Unavailable Unavailable Mikie GAFFNEY MD Unavailable Unavailable Mikie GAFFNEY MD Unavailable Unavailable Mikie GAFFNEY MD Unavailable Unavailable Doremus, E Alysha PA Unavailable Unavailable Doremus, E Alysha PA Unavailable Unavailable Doremus, E Alysha PA Unavailable Unavailable Doremus, E Alysha PA Unavailable Unavailable Doremus, E Alysha PA Unavailable Unavailable Doremus, E Alysha PA Unavailable Unavailable Doremus, E Alysha PA Unavailable Unavailable Doremus, E Alysha PA Unavailable Unavailable Doremus, E Alysha PA Unavailable Unavailable Doremus, E Alysha PA Unavailable Unavailable Doremus, E Alysha PA Unavailable Unavailable Doremus, E Alysha PA Unavailable Unavailable Doremus, E Alysha PA Unavailable Unavailable Doremus, E Alysha PA Unavailable Unavailable Doremus, E Alysha PA Unavailable Unavailable Doremus, E Alysha PA Unavailable Unavailable Doremus, E Alysha PA Unavailable Unavailable Doremus, E Alysha PA Unavailable Unavailable Doremus, E Alysha PA Unavailable Unavailable Tony Sánchez MD Unavailable Unavailable Tony Sánchez MD Unavailable Unavailable Tony Sánchez MD Unavailable Unavailable Tony Sánchez MD Unavailable Unavailable Tony Sánchez MD Unavailable Unavailable Tony Sánchez MD Unavailable Unavailable Tony Sánchez MD Unavailable Unavailable Tony Sánchez MD Unavailable Unavailable Tony Sánchez MD Unavailable Unavailable Tony Sánchez MD Unavailable Unavailable Tony Sánchez MD Unavailable Unavailable Tony Sánchez MD Unavailable Unavailable Tony Sánchez MD Unavailable Unavailable Tony Sánchez MD Unavailable Unavailable Tony Sánchez MD Unavailable Unavailable Tony Sánchez MD Unavailable Unavailable Tony Sánchez MD Unavailable Unavailable Tony Sánchez MD Unavailable Unavailable Tony Sánchez MD Unavailable Unavailable Tony Sánchez MD Unavailable Unavailable Tony Sánchez MD Unavailable Unavailable Tony Sánchez MD Unavailable Unavailable Tony Sánchez MD Unavailable Unavailable Tony Sánchez MD Unavailable Unavailable Tony Sánchez MD Unavailable Unavailable Tony Sánchez MD Unavailable Unavailable COOL, J TITO PA Unavailable Unavailable COOL, J TITO PA Unavailable Unavailable COOL, J TITO PA Unavailable Unavailable COOL, J TITO PA Unavailable Unavailable COOL, J TITO PA Unavailable Unavailable COOL, J TITO PA Unavailable Unavailable COOL, J TITO PA Unavailable Unavailable COOL, J TITO PA Unavailable Unavailable COOL, J TITO PA Unavailable Unavailable COOL, J TITO PA Unavailable Unavailable COOL, J TITO PA Unavailable Unavailable COOL, J TITO PA Unavailable Unavailable COOL, J TITO PA Unavailable Unavailable COOL, J TITO PA Unavailable Unavailable COOL, J TITO PA Unavailable Unavailable COOL, J TITO PA Unavailable Unavailable COOL, J TITO PA Unavailable Unavailable COOL, J TITO PA Unavailable Unavailable COOL, J TITO PA Unavailable Unavailable COOL, J TITO PA Unavailable Unavailable COOL, J TITO PA Unavailable Unavailable COOL, J TITO PA Unavailable Unavailable COOL, J TITO PA Unavailable Unavailable COOL, J TITO PA Unavailable Unavailable COOL, J TITO PA Unavailable Unavailable COOL, J TITO PA Unavailable Unavailable COOL, J TITO PA Unavailable Unavailable Norah Rose MD Unavailable Unavailable Norah Rose MD Unavailable Unavailable Norah Rose MD Unavailable Unavailable Kunnumpurath, F Rita MD Unavailable Unavailable Kunnumpurath, F Rita MD Unavailable Unavailable Kunnumpurath, F Rita MD Unavailable Unavailable Kunnumpurath, F Rita MD Unavailable Unavailable Kunnumpurath, F Rita MD Unavailable Unavailable Kunnumpurath, F Rita MD Unavailable Unavailable Kunnumpurath, F Rita MD Unavailable Unavailable Kunnumpurath, F Rita MD Unavailable Unavailable Kunnumpurath, F Rita MD Unavailable Unavailable Kunnumpurath, F Rita MD Unavailable Unavailable Kunnumpurath, F Rita MD Unavailable Unavailable Kunnumpurath, F Rita MD Unavailable Unavailable Kunnumpurath, F Rita MD Unavailable Unavailable Kunnumpurath, F Rita MD Unavailable Unavailable Kunnumpurath, F Rita MD Unavailable Unavailable Kunnumpurath, F Rita MD Unavailable Unavailable Kunnumpurath, F Rita MD Unavailable Unavailable Kunnumpurath, F Rita MD Unavailable Unavailable Kunnumpurath, F Rita MD Unavailable Unavailable Kunnumpurath, F Rita MD Unavailable Unavailable Kunnumpurath, F Rita MD Unavailable Unavailable Kunnumpurath, F Rita MD Unavailable Unavailable Kunnumpurath, F Rita MD Unavailable Unavailable Kunnumpurath, F Rita MD Unavailable Unavailable Kunnumpurath, F Rita MD Unavailable Unavailable Kunnumpurath, F Rita MD Unavailable Unavailable Kunnumpurath, F Rita MD Unavailable Unavailable Kunnumpurath, F Rita MD Unavailable Unavailable Kunnumpurath, F Rita MD Unavailable Unavailable Kunnumpurath, F Rita MD Unavailable Unavailable Kunnumpurath, F Rita MD Unavailable Unavailable Kunnumpurath, F Rita MD Unavailable Unavailable Kunnumpurath, F Rita MD Unavailable Unavailable Kunnumpurath, F Rita MD Unavailable Unavailable Kunnumpurath, F Rita MD Unavailable Unavailable Kunnumpurath, F Rita MD Unavailable Unavailable Kunnumpurath, F Rita MD Unavailable Unavailable Kunnumpurath, F Rita MD Unavailable Unavailable Kunnumpurath, F Rita MD Unavailable Unavailable Kunnumpurath, F Rita MD Unavailable Unavailable Kunnumpurath, F Rita MD Unavailable Unavailable SUNDEEP BUCIO MD Unavailable Unavailable SUNDEEP BUCIO MD Unavailable Unavailable SUNDEEP BUCIO MD Unavailable Unavailable REINDL, SUNDEEP GLOVER Unavailable Unavailable REINDL, SUNDEEP GLOVER Unavailable Unavailable REINDL, SUNDEEP GLOVER Unavailable Unavailable REINDL, SUNDEEP GLOVER Unavailable Unavailable REINDL, SUNDEEP GLOVER Unavailable Unavailable REINDL, SUNDEEP GLOVER Unavailable Unavailable REINDL, SUNDEEP GLOVER Unavailable Unavailable REINDL, SUNDEEP GLOVER Unavailable Unavailable REINDL, SUNDEEP GLOVER Unavailable Unavailable REINDL, SUNDEEP GLOVER Unavailable Unavailable REINDL, SUNDEEP GLOVER Unavailable Unavailable REINDL, SUNDEEP GLOVER Unavailable Unavailable REINDL, SUNDEEP GLOVER Unavailable Unavailable REINDL, SUNDEEP GLOVER Unavailable Unavailable REINDL, SUNDEEP GLOVER Unavailable Unavailable REINDL, SUNDEEP GLOVER Unavailable Unavailable REINDL, SUNDEEP GLOVER Unavailable Unavailable REINDL, SUNDEEP GLOVER Unavailable Unavailable REINDL, SUNDEEP GLOVER Unavailable Unavailable REINDL, SUNDEEP GLOVER Unavailable Unavailable REINDL, SUNDEEP GLOVER Unavailable Unavailable REINDL, SUNDEEP GLOVER Unavailable Unavailable REINDL, SUNDEEP GLOVER Unavailable Unavailable REINDL, SUNDEEP GLOVER Unavailable Unavailable REINDL, SUNDEEP GLOVER Unavailable Unavailable REINDL, SUNDEEP GLOVER Unavailable Unavailable REINDL, SUNDEEP GLOVER Unavailable Unavailable REINDL, SUNDEEP GLOVER Unavailable Unavailable REINDL, SUNDEEP GLOVER Unavailable Unavailable REINDL, SUNDEEP GLOVER Unavailable Unavailable REINDL, SUNDEEP GLOVER Unavailable Unavailable REINDL, SUNDEEP GLOVER Unavailable Unavailable REINDL, SUNDEEP GLOVER Unavailable Unavailable REINDL, SUNDEEP GLOVER Unavailable Unavailable REINDL, SUNDEEP GLOVER Unavailable Unavailable REINDL, SUNDEEP GLOVER Unavailable Unavailable REINDL, SUNDEEP GLOVER Unavailable Unavailable REINDL, SUNDEEP GLOVER Unavailable Unavailable REINDL, SUNDEEP GLOVER Unavailable Unavailable Nievesumpnixon F Rita GLOVER Unavailable Unavailable Bernardnumpurasuze F Rita MD Unavailable Unavailable Bernardnumpurasuze F Rita GLOVER Unavailable Unavailable Bernardnumpurasuze F Rita GLOVER Unavailable Unavailable Bernardnumpurasuze F Rita MD Unavailable Unavailable Bernardnumpurasuze F Rita GLOVER Unavailable Unavailable Kunnumpurasuze F Rita MD Unavailable Unavailable Kunnumpurasuze F Rita GLOVER Unavailable Unavailable Kunnumpurasuze F Rita MD Unavailable Unavailable Kunnumpurasuze F Rita MD Unavailable Unavailable Bernardnumpurasuze F Rtia MD Unavailable Unavailable Bernardnumpurasuze F Rita MD Unavailable Unavailable Kunnumpurasuze F Rita MD Unavailable Unavailable Kunnumpurasuze F Rita MD Unavailable Unavailable Kunnumpurasuze F Rita MD Unavailable Unavailable Kunnumpurasuze F Rita MD Unavailable Unavailable Kunnumpurasuze F Rita MD Unavailable Unavailable Kunnumpurasuze F Rita MD Unavailable Unavailable Kunnumpurath, F Rita MD Unavailable Unavailable Kunnumpurath, F Rita MD Unavailable Unavailable Kunnumpurath, F Rita MD Unavailable Unavailable Kunnumpurath, F Rita MD Unavailable Unavailable Kunnumpurath, F Rita MD Unavailable Unavailable Kunnumpurath, F Rita MD Unavailable Unavailable Kunnumpurath, F Rita MD Unavailable Unavailable Kunnumpurath, F Rita MD Unavailable Unavailable Kunnumpurath, F Rita MD Unavailable Unavailable Kunnumpurath, F Rita MD Unavailable Unavailable Kunnumpurath, F Rita MD Unavailable Unavailable Kunnumpurath, F Rita MD Unavailable Unavailable Kunnumpurath, F Rita MD Unavailable Unavailable Kunnumpurath, F Rita MD Unavailable Unavailable Kunnumpurath, F Rita MD Unavailable Unavailable Kunnumpurath, F Rita MD Unavailable Unavailable Kunnumpurath, F Rita MD Unavailable Unavailable Kunnumpurath, F Rita MD Unavailable Unavailable Kunnumpurath, F Rita MD Unavailable Unavailable Kunnumpurath, F Rita MD Unavailable Unavailable Kunnumpurath, F Rita MD Unavailable Unavailable Kunnumpurath, F Rita MD Unavailable Unavailable Kunnumpurath, F Rita MD Unavailable Unavailable Kunnumpurath, F Rita MD Unavailable Unavailable Kunnumpurath, F Rita MD Unavailable Unavailable Kunnumpurath, F Rita MD Unavailable Unavailable OTHER, DR PHYSICIAN REFERRING Unavailable Unavailabl e Torrey, Sheryl REGISTERED NURSE AMBULATORY Unavailable Unavailable Torrey, Sheryl REGISTERED NURSE AMBULATORY Unavailable Unavailable Torrey, Sheryl REGISTERED NURSE AMBULATORY Unavailable Unavailable Torrey, Sheryl REGISTERED NURSE AMBULATORY Unavailable Unavailable Torrey, Sheryl REGISTERED NURSE AMBULATORY Unavailable Unavailable Torrey, Sheryl REGISTERED NURSE AMBULATORY Unavailable Unavailable Torrey, Sheryl REGISTERED NURSE AMBULATORY Unavailable Unavailable Torrey, Sheryl REGISTERED NURSE AMBULATORY Unavailable Unavailable Torrey, Sheryl REGISTERED NURSE AMBULATORY Unavailable Unavailable Torrey, Sheryl REGISTERED NURSE AMBULATORY Unavailable Unavailable SUNDEEP BUCIO MD Unavailable Unavailable SUNDEEP BUCIO MD Unavailable Unavailable SUNDEEP BUCIO MD Unavailable Unavailable SUNDEEP BUCIO MD Unavailable Unavailable SUNDEEP BUCIO MD Unavailable Unavailable SUNDEEP BUCIO MD Unavailable Unavailable SUNDEEP BUCIO MD Unavailable Unavailable SUNDEEP BUCIO MD Unavailable Unavailable SUNDEEP BUCIO MD Unavailable Unavailable SUNDEEP BUCIO MD Unavailable Unavailable SUNDEEP BUICO MD Unavailable Unavailable SUNDEEP BUCIO MD Unavailable Unavailable SUNDEEP BUCIO MD Unavailable Unavailable SUNDEEP BUCIO MD Unavailable Unavailable REINDL, SUNDEEP GLOVER Unavailable Unavailable REINDL, SUNDEEP GLOVER Unavailable Unavailable REINDL, SUNDEEP GLOVER Unavailable Unavailable REINDL, SUNDEEP GLOVER Unavailable Unavailable REINDL, SUNDEEP GLOVER Unavailable Unavailable REINDL, SUNDEEP GLOVER Unavailable Unavailable REINDL, SUNDEEP GLOVER Unavailable Unavailable REINDL, SUNDEEP GLOVER Unavailable Unavailable REINDL, SUNDEEP GLOVER Unavailable Unavailable REINDL, SUNDEEP GLOVER Unavailable Unavailable REINDL, SUNDEEP GLOVER Unavailable Unavailable REINDL, SUNDEEP GLOVER Unavailable Unavailable REINDL, SUNDEEP GLOVER Unavailable Unavailable REINDL, SUNDEEP GLOVER Unavailable Unavailable REINDL, SUNDEEP GLOVER Unavailable Unavailable REINDL, SUNDEEP GLOVER Unavailable Unavailable REINDL, SUNDEEP GLOVER Unavailable Unavailable REINDL, SUNDEEP GLOVER Unavailable Unavailable REINDL, SUNDEEP GLOVER Unavailable Unavailable REINDL, SUNDEEP GLOVER Unavailable Unavailable REINDL, SUNDEEP GLOVER Unavailable Unavailable REINDL, SUNDEEP GLOVER Unavailable Unavailable REINDL, SUNDEEP GLOVER Unavailable Unavailable REINDL, SUNDEEP GLOVER Unavailable Unavailable REINDL, SUNDEEP GLOVER Unavailable Unavailable REINDL, SUNDEEP GLOVER Unavailable Unavailable REINDL, SUNDEEP GLOVER Unavailable Unavailable REINDL, SUNDEEP GLOVER Unavailable Unavailable Stahl, Lilly MHC Unavailable Unavailable Favio, Lilly MHC Unavailable Unavailable Sorge, Carolina Doty MD Unavailable Unavailable Sorge, Carolina Doty MD Unavailable Unavailable Sorge, Carolina Doty MD Unavailable Unavailable Sorge, Carolina Doty MD Unavailable Unavailable Sorge, Carolina Doty MD Unavailable Unavailable Sorge, Carolina Doty MD Unavailable Unavailable Sorge, C Soren GLOVER Unavailable Unavailable Sorge, Carolina Doty MD Unavailable Unavailable Sorge, Carolina Doty MD Unavailable Unavailable Sorge, Carolina Doty MD Unavailable Unavailable Sorge, Carolina Doty MD Unavailable Unavailable Sorge, Carolina Doty MD Unavailable Unavailable Sorge, Carolina Doty MD Unavailable Unavailable Sorge, Carolina Doty MD Unavailable Unavailable Sorge, Carolina Doty MD Unavailable Unavailable Sorge, Carolina Doty MD Unavailable Unavailable Sorge, Carolina Doty MD Unavailable Unavailable Sorge, C Soren GLOVER Unavailable Unavailable Sorge, C Soren MD Unavailable Unavailable Sorge, C Soren MD Unavailable Unavailable Sorge, C Soren MD Unavailable Unavailable Sorge, C Soren MD Unavailable Unavailable Sorge, C Soren MD Unavailable Unavailable Sorge, C Soren MD Unavailable Unavailable Debbie Godfrey DO Unavailable Unavailable Debbie Godrfey DO Unavailable Unavailable Debbie Godfrey DO Unavailable Unavailable Debbie Godfrey DO Unavailable Unavailable Debbie Godfrey DO Unavailable Unavailable Debbie Godfrey DO Unavailable Unavailable Debbie Godfrey DO Unavailable Unavailable Debbie Godfrey DO Unavailable Unavailable Epifanio, E Jason DO Unavailable Unavailable Epifanio, E Jason DO Unavailable Unavailable Epifanio, E Jason DO Unavailable Unavailable Epifanio, E Jason DO Unavailable Unavailable Epifanio, E Jason DO Unavailable Unavailable Epifanio, E Jason DO Unavailable Unavailable Epifanio, E Jason DO Unavailable Unavailable Epifanio, E Jason DO Unavailable Unavailable Epifanio, E Jason DO Unavailable Unavailable Epifanio, E Jason DO Unavailable Unavailable Epifanio, E Jason DO Unavailable Unavailable Epifanio, E Jason DO Unavailable Unavailable Epifanio, E Jason DO Unavailable Unavailable Epifanio, E Jason DO Unavailable Unavailable Epifanio, E Jason DO Unavailable Unavailable Epifanio, E Jason DO Unavailable Unavailable Epifanio, E Jason DO Unavailable Unavailable Epifanio, E Jason DO Unavailable Unavailable Re-disclosure Warning The records that you are about to access may contain information from federally-assisted alcohol or drug abuse programs. If such information is present, then the following federally mandated warning applies: This information has been disclosed to you from records protected by federal confidentiality rules (42 CFR part 2). The federal rules prohibit you from making any further disclosure of this information unless further disclosure is expressly permitted by the written consent of the person to whom it pertains or as otherwise permitted by 42 CFR part 2. A general authorization for the release of medical or other information is NOT sufficient for this purpose. The Federal rules restrict any use of the information to criminally investigate or prosecute any alcohol or drug abuse patient.The records that you are about to access may contain highly sensitive health information, the redisclosure of which is protected by Article 27-F of the [facility] Public Health law. If you continue you may have access to information: Regarding HIV / AIDS; Provided by facilities licensed or operated by the [facility] Office of Mental Health; or Provided by the [facility] Office for People With Developmental Disabilities. If such information is present, then the following [facility] mandated warning applies: This information has been disclosed to you from confidential records which are protected by state law. State law prohibits you from making any further disclosure of this information without the specific written consent of the person to whom it pertains, or as otherwise permitted by law. Any unauthorized further disclosure in violation of state law may result in a fine or custodial sentence or both. A general authorization for the release of medical or other information is NOT sufficient authorization for further disc losure. Allergies and Adverse Reactions Type Description Substance Reaction Status Data Source(s ) Miscellaneous allergy No Known Drug Allergies No Known Drug Allergies [facility] Miscellaneous allergy No Known Environmental Allergies No Kn own Environmental Allergies [facility] Miscellaneous allergy No Known Food Allergies No Known Food Allergies [facility] Drug Allergy Drug Allergy NKDA MEDENT ([facility]) Family History Family Member Name Family Member Gender Family Member Status Date o f Status Description Data Source(s) Unknown Male Problem MEDENT ([facility]) Unknown Unknown Problem [facility] ([facility]) Unknown Male Problem MEDENT ([facility]) Encounters Encounter Providers Location Date Indications Data Source(s ) Outpatient Attender: ABEL DOUGLASS MD [facility]GNBE[facility] 03/16 09:02:00 AM EDT - 04/04/2021 09:03:00 AM EDT [facility] Patient discharged. Outpatient Attender: Rita Rose MDConsultant: Rita ventura MD 04/01/2021 08:39:00 AM EDT - 04/01/2021 08:39:00 AM EDT [facility] [place] [address] [address] 03/16/2021 12:00:00 AM EDT eCW1 ([facility]) Outpatient Attender: Rita Rose MDConsultant: Rita ventura MD 03/13/2021 09:32:00 AM EDT - 03/13/2021 09:32:00 AM EDT [facility] Outpatient Attender: CHANA GAFFNEY MDA dmitter: CHANA GAFFNEY MDConsultant: Soren Garza MD 008 03/11/2021 02:11:00 PM EDT - 03/11/2021 02:11:00 PM EDT LAB [facility] [place] [address] [address] 03/10/2021 12:00:00 AM EDT eCW1 ([facility]) [place] [address] [address] 02/17/2021 12:00:00 AM EDT eCW1 ([facility]) Outpatient Attender: ABEL DOUGLASS MD [facility]PS[facility]ORT[facility]PSGNBE[facility] 01/13 01:41:00 PM EDT - 01/23/2021 01:42:00 PM [facility] [place] [address] [address] 01/20/2021 12:00:00 AM EDT eCW1 ([facility]) Outpatient Attender: Sheryl Hirsch NP [facility]ORT[facility]GNBE[facility] 11/2020 10:17:00 AM EDT - 01/16/2021 10:18:00 AM EDT [facility] Patient [facility]. Outpatient Attender: Alysha LICEA Attender: DR LOUIE OTHERAdmitter: Alysha Nieves PAConsultant: Soren Garza MD 01:20:00 PM EDT - 02/11/2021 10:00:00 AM EDT Physical therapy [facility] Physical therapy Discharge cancelled. Disregard status an d discharged date. Outpatient Attender: Jason Baires mitter: Jason BUTLEReferrer: Jason Godfrey DOConsultant: Soren Garza MD 01/13/2021 09:46 :00 AM EDT - 01/13/2021 10:20:00 AM EDT LEFT ARM [facility] LEFT ARM Patient discharged. [place] [address] [address] 01/02/2021 12:00:00 AM EDT eCW1 ([facility]) Outpatient Attender: Alysha LICEA Attender: DR LOUIE OTHERAdmitter: Alysha Nieves PAConsultant: Soren Garza MD 09:30:00 AM EDT - 01/12/2021 08:20:00 AM EDT Physical therapy [facility] Physical therapy Patient discharged. Outpatient Attender: Sheryl Hirsch NP [facility]PS[facility]ORT[facility]CPSGNBE[facility] 11/2020 10:39:00 AM EDT - 12/16/2020 10:40:00 AM EDT [facility] Patient [facility] [place] [address] [address] 12/15/2020 12:00:00 AM EDT eCW1 ([facility]) [place] [address] [address] 12/05/2020 12:00:00 AM EDT [facility]CW1 ([facility]) [place] [address] [address] 12/02/2020 12:00:00 AM EDT eCW1 ([facility]) Outpatient [address] [facility] [place] [address] 12/02/2020 12:00:00 AM EDT eCW1 ([facility]) [place] [address] [address] 11/28/2020 12:00:00 AM EDT eCW1 ([facility]) (WC PROC) [facility] Procedure [address] [place] [address] 11/27/2020 12:00:00 AM EDT eCW1 ([facility]) Outpatient Attender: SUNDEEP BUCIO MDConsultant: Rita nelson MD 11/12/2020 10:45:00 AM EDT - 11/12/2020 11:45:00 AM EDT [facility] Patient discharged. [place] [address] [address] 11/06/2020 12:00:00 AM EDT eCW1 ([facility]) Outpatient Attender: SUNDEEP Torres/Rohit/Heber/Catracho dl 11/05/2020 10:45:00 AM EDT MEDENT ([facility]) Outpatient Attender: Rita Rose MDConsultant: Rita ventura MD 09/24/2020 09:20:00 AM EST - 09/24/2020 09:20:00 AM [facility] Outpatient Attender: Rita Rose MD Family Practice 0 09/24/2020 08:20:00 AM EST [facility] ([facility] Outpatient Attender: Rita Rose MDConsultant: Rita ventura MD 05/15/2020 10:38:00 AM EDT - 05/15/2020 10:38:00 AM EDT [facility] Outpatient Attender: Lilly [facility]ahl [facility] e[facility]: Aidan Sánchez MDConsultant: Rita Rose MD 04/08/2020 09:03:00 AM EDT - 04/08/2020 09:03:00 AM EDT [facility] Outpatient Attender: Rita Rose MDConsultant: Rita ventura MD 04/01/2020 10:28:00 AM EDT - 04/01/2020 10:28:00 AM EDT [facility] Outpatient Attender: Lilly Stahl [facility] eferrer: Aidan Sánchez MDConsultant: Rita Rose MD 03/25/2020 09:01:00 AM EDT - 03/25/2020 09:01:00 AM EDT [facility] Outpatient Attender: Lilly [facility] e[facility] Aidan Sánchez MDConsultant: Rita Rsoe MD 03/04/2020 10:02:00 AM EDT - 03/04/2020 10:02:00 AM EDT [facility] Attender: Lilly [facility]: Aidan Sánchez MDConsultant: Rita Rose MD 02/20/2020 12:00:00 PM EDT - 02/20/2020 12:00:00 PM EDT [facility] Attender: Rita Rose MDConsultant: Rita ventura MD 02/12/2020 09:08:00 AM EDT - 02/12/2020 09:08:00 AM EDT [facility] Attender: Lilly Stahl [facility]: Aidan Sánchez MDConsultant: Rita Rose MD 02/07/2020 10:49:00 AM EDT - 02/07/2020 10:49:00 AM EDT [facility] Attender: TITO BLACKDiaz prakash: Aidan Sánchez MDConsultant: Rita Rose MD 02/06/2020 11:10:00 AM EDT - 02/06/2020 11:10:00 AM EDT [facility] Attender: Lilly Stahl [facility] eferrer: Aidan Sánchez MDConsultant: Rita Rose MD 01/09/2020 10:57:00 AM EDT - 01/09/2020 10:57:00 AM EDT [facility] Attender: Lilly Stahl [facility]: Aidan Sánchez MDConsultant: Rita Rose MD 01/02/2020 10:59:00 AM EDT - 01/02/2020 10:59:00 AM EDT [facility] Attender: Rita Rose MDConsultant: Rita ventura MD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 normal [facility] ([facility]) Blood Urea Nitrogen 10 mg/dL 7-18 Normal (applies to non-nume abisai results) [facility] ([facility]) Glomerular Filtration Rate Laboratory test result Normal (applies to non- numeric results) [facility] ([facility]) <content>Units are mL/min/1.73 m2</content>
<content></content>
<content>Chronic Kidney Disease Staging per NKF:</content>
<content></content>
<content>Stage I & II GFR >=60 Normal to Mildly Decreased</content>
<content>Stage III GFR 30- 59 Moderately Decreased</content>
<content>Stage IV GFR 15-29 Severely Decreased</content>
<content>Stage V GFR <15 Very Little GFR Left</content>
<content>ESRD GFR <15 on DOOR ASSEMBLER</content>
<content></content> Creatinine For GFR 0.92 mg/dL 0.55-1.30 Normal (applies to non -numeric results) [facility] ([facility]) Sodium Level 135 meq/L 136-145 Below low normal [facility] ([facility]) Chloride Level 104 meq/L 98-107 Normal (applies to non-numeric r esults) [facility] ([facility]) Potassium Serum 3.7 meq/L 3.5-5.1 Normal (applies to non-numeric results) [facility] ([facility]) Carbon Dioxide Level 24 meq/L 21-32 Normal (applies to non-num caroline results) [facility] ([facility]) Anion Gap 7 meq/L 8-16 Below low normal [facility] Calcium Level 9.3 mg/dL 8.5-10.1 Normal (applies to non-numeric re sults) [facility] ([facility]) Ast/Sgot 23 U/L 7-37 Normal (applies to non-numeric resul ts) [facility] ([facility]) Alt/SGPT 40 U/L 12-78 Normal (applies to non-numeric resul ts) [facility] ([facility]) Alkaline Phosphatase 119 U/L 45-117 Above high normal [facility] Bilirubin,Total 0.4 mg/dL 0.2-1.0 Normal (applies to non-numeric results) [facility] ([facility]) Total Protein 8.0 GM/DL 6.4-8.2 Normal (applies to non-numeric re sults) [facility] ([facility]) Albumin 3.5 GM/DL 3.2-5.2 Normal (applies to non-numeric resul ts) [facility] ([facility]) Albumin/Globulin Ratio 0.8 1.2-2.2 Below low normal [facility] ([facility]) ID Date Data Source [id number] 03/06/2021 08:51:00 AM EDT [facility] ([facility]) Name Value Range Interpretation Code Description Data Carli rce(s) Supporting Document(s) White Blood Count 8.5 10 4.0-10.0 Normal (applies to non-numeri c results) [facility] ([facility]) Red Blood Count 4.47 10 4.00-5.40 Normal (applies to non-numeric results) [facility] ([facility]) Hematocrit 40.3 % 36.0-47.0 Normal (applies to non-numeric resul ts) [facility] ([facility]) Hemoglobin 13.3 g/dL 12.0-15.5 Normal (applies to non-numeric resul ts) [facility] ([facility]) Mean Corpuscular Volume 90.2 fl 80.0-96.0 Normal ( applies to non-numeric results) [facility] ([facility]) Mean Corpuscular Hemoglobin 29.8 pg 27.0-33.0 Norm al (applies to non-numeric results) [facility]) Red Cell Distribution Width 13.9 % 11.5-14.5 Norm al (applies to non-numeric results) [facility] ([facility]) Mean Corpuscular HGB Conc 33.0 g/dL 32.0-36.5 Normal (applies to non-numeric results) [facility] ([facility]) Platelet Count, Automated 333 10 150-450 Normal (applies to non-numeric results) [facility] ([facility]) Lymph % 26.5 % 24.0-44.0 Normal (applies to non-numeric resul ts) [facility] ([facility]) Neutrophils % 63.0 % 36.0-66.0 Normal (applies to non-numeric re sults) [facility] ([facility]) [place] % 6.8 % 2.0-8.0 Normal (applies to non-numeric resul ts) [facility] ([facility]) Eos % 1.9 % 0.0-3.0 Normal (applies to non-numeric resul ts) [facility] ([facility]) Baso % 0.9 % 0.0-1.0 Normal (applies to non-numeric resul ts) [facility] ([facility]) Immature Granulocyte % 0.9 % 0-3.0 Normal (applies to non-n umeric results) [facility] ([facility]) Nucleated Red Blood Cell % 0.0 % 0-0 Normal (applies to n on-numeric results) [facility] ([facility]) Lymph # 2.3 10 1.5-5.0 Normal (applies to non-numeric resul ts) [facility] ([facility]) Neutrophils # 5.3 10 1.5-8.5 Normal (applies to non-numeric re sults) [facility] ([facility]) [place] # 0.6 10 0.0-0.8 Normal (applies to non-numeric resul ts) [facility] ([facility]) Eos # 0.2 10 0.0-0.5 Normal (applies to non-numeric resul ts) [facility] ([facility]) Baso # 0.1 10 0.0-0.2 Normal (applies to non-numeric resul ts) [facility] ([facility]) ID Date Data Source [id number] 12/09/2020 01:50:00 PM EDT [facility] ([facility]) Name Value Range Interpretation Code Description Data Carli rce(s) Supporting Document(s) Glucose [Mass/volume] in Capillary blood by Glucometer 160 mg/dL 70-105 Above high normal [facility] ([facility]) ID Date Data Source [id number] 12/09/2020 01:50:00 PM EDT [facility] ([facility] ) Name Value Range Interpretation Code Description Data Carli rce(s) Supporting Document(s) Glucose [Mass/volume] in Capillary blood by Glucometer 160 mg/dL 70-105 Above high normal [facility] ([facility], ) ID Date Data Source [id number] 12/05/2020 09:50:00 AM EDT [facility] Name Value Range Interpretation Code Description Data Carli rce(s) Supporting Document(s) SARS-CoV-2 (COVID-19) RNA [Presence] in Respiratory specimen by KEMAR with probe detection Not Detected [facility] This lab was ordered by [facility] and reported by [employer]. ID Date Data Source [id number] 11/26/2020 08:17:00 AM EDT [facility] ([facility]) Name Value Range Interpretation Code Description Data Carli rce(s) Supporting Document(s) Glucose, Fasting 204 mg/dL 70-100 Above high normal [facility] Blood Urea Nitrogen 10 mg/dL 7-18 Normal (applies to non-nume abisai results) [facility] ([facility]) Creatinine For GFR 0.87 mg/dL 0.55-1.30 Normal (applies to non -numeric results) [facility] ([facility]) Sodium Level 137 meq/L 136-145 Normal (applies to non-numeric res ults) [facility] ([facility]) Glomerular Filtration Rate Laboratory test result Normal (applies to non- numeric results) [facility]) <content>Units are mL/min/1.73 m2</content>
<content></content>
<content>Chronic Kidney Disease Staging per NKF:</content>
<content></content>
<content>Stage I & II GFR >=60 Normal to Mildly Decreased</content>
<content>Stage III GFR 30- 59 Moderately Decreased</content>
<content>Stage IV GFR 15-29 Severely Decreased</content>
<content>Stage V GFR <15 Very Little GFR Left</content>
<content>ESRD GFR <15 on DOOR ASSEMBLER</content>
<content></content> Potassium Serum 4.1 meq/L 3.5-5.1 Normal (applies to non-numeric results) [facility] ([facility]) Chloride Level 104 meq/L 98-107 Normal (applies to non-numeric r esults) [facility] ([facility]) Carbon Dioxide Level 26 meq/L 21-32 Normal (applies to non-num caroline results) [facility] ([facility]) Anion Gap 7 meq/L 8-16 Below low normal [facility] ( [facility]) Calcium Level 9.7 mg/dL 8.5-10.1 Normal (applies to non-numeric re sults) [facility] ([facility]) Ast/Sgot 22 U/L 7-37 Normal (applies to non-numeric resul ts) [facility] ([facility]) Alt/SGPT 40 U/L 12-78 Normal (applies to non-numeric resul ts) [facility] ([facility]) Alkaline Phosphatase 97 U/L 45-117 Normal (applies to non-num caroline results) [facility] ([facility]) Bilirubin,Total 0.5 mg/dL 0.2-1.0 Normal (applies to non-numeric results) [facility] ([facility]) Total Protein 8.1 GM/DL 6.4-8.2 Normal (applies to non-numeric re sults) [facility] ([facility]) Albumin/Globulin Ratio 0.8 1.2-2.2 Below low normal [facility] ([facility]) Albumin 3.7 GM/DL 3.2-5.2 Normal (applies to non-numeric resul ts) [facility] ([facility]) ID Date Data Source [id number] 11/26/2020 08:17:00 AM EDT [facility] ([facility]) Name Value Range Interpretation Code Description Data Carli rce(s) Supporting Document(s) Iron (Fe) 47 ug/dL 50-170 Below low normal [facility] ( [facility]) Total Iron Binding Capacity 361 ug/dL 250-450 Norm al (applies to non-numeric results) [facility] ([facility]) Percent Saturation 13.0 % 13.2-45.0 Below low normal [facility] ([facility]) ID Date Data Source [id number] 11/26/2020 08:17:00 AM EDT [facility] ([facility]) Name Value Range Interpretation Code Description Data Carli rce(s) Supporting Document(s) Ferritin [Mass/volume] in Serum or Plasma 38 ng/mL 8-252 Normal (applies to non- numeric results) [facility] ([facility]) ID Date Data Source [id number] 11/26/2020 08:17:00 AM EDT [facility] ([facility]) Name Value Range Interpretation Code Description Data Carli rce(s) Supporting Document(s) Follicle Stimulating Hormone 120.4 mIU/mL Nor mal (applies to non-numeric results) [facility] ([facility]) <content>NORMAL MENSTRUATING FEMALES:</c ontent>
<content>FOLLICULAR PHASE 2.5-10.2 mIU/mL</content>
<content>MID CYCLE PEAK 3.4-33.4 mIU/mL</content>
<content>LUTEAL PHASE 1.5-9.1 mIU/mL</content>
<content></content>
<content>: <0.3 mIU/mL</content>
<content>POST MENOPAUSAL FEMALES: 23.0-116.3 mIU/mL</content>
<content></content> Luteinizing Hormone 52.8 mIU/mL Normal (applies to non-num caroline results) [facility] ([facility]) <content>NORMAL MENSTRUATING FEMALES:</c ontent>
<content>FOLLICULAR PHASE 1.9-12.5 mIU/mL</content>
<content>MID CYCLE PEAK 8.7-76.3 mIU/mL</content>
<content>LUTEAL PHASE 0.5-16.9 mIU/mL</content>
<content></content>
<content> <1.5 mIU/mL</content>
<content>POST MENOPAUSAL FEMALES: 15.9-54.0 mIU/mL</content>
<content>CONTRACEPTIVES 0.7-5.6 mIU/mL</content>
<content></content> ID Date Data Source [id number] 11/26/2020 08:17:00 AM EDT [facility] ([facility]) Name Value Range Interpretation Code Description Data Carli rce(s) Supporting Document(s) Estradiol (E2) [Mass/volume] in Serum or Plasma Laboratory test result Normal (applies to non-numeric results) [facility] ([facility]) <content>NORMAL MENSTRUATING FEMALES:</content>
<content></content>
<content>FOLLICULAR PHASE 19.5-144.2 PG/ML</content>
<content>MID CYCLE PEAK 63.9- 356.7 PG/ML</content>
<content>LUTEAL PHASE 55.8-214.2 PG/ML</content>
<content></content>
<content>POST MENOPAUSAL FEMALES <32.2 PG/ML</content>
<content>(UNTREATED)</content>
<content></content>
<content>THE eESTRADIOL2 ASSAY IS PERFORMED ON THE [employer] BY</content>
<content>CHEMILUMINESCENCE AND SHOULD NOT BE COMPARED INTERCHANGEABLY</content>
<content>WITH OTHER METHODS.</content>
<content></content>
<content>Falsely elevated Estradiol test results can be seen in</content>
<content>patients treated with fulvestrant (Faslodex). Estradiol</content>
<content>concentrations in fulvestrant treated women should only be</content>
<content>measured by LC- MS (Liquid Chromatography-Mass Spectrometry).</content>
<content></content> ID Date Data Source [id number] 11/26/2020 08:17:00 AM EDT [facility] ([facility]) Name Value Range Interpretation Code Description Data Carli rce(s) Supporting Document(s) White Blood Count 11.2 10 4.0-10.0 Above high normal [facility] ([facility]) Red Blood Count 4.38 10 4.00-5.40 Normal (applies to non-numeric results) [facility] ([facility]) Hemoglobin 12.6 g/dL 12.0-15.5 Normal (applies to non-numeric resul ts) [facility] ([facility]) Hematocrit 38.5 % 36.0-47.0 Normal (applies to non-numeric resul ts) [facility] ([facility]) Mean Corpuscular Volume 87.9 fl 80.0-96.0 Normal ( applies to non-numeric results) [facility] ([facility]) Mean Corpuscular HGB Conc 32.7 g/dL 32.0-36.5 Normal (applies to non-numeric results) [facility] Mean Corpuscular Hemoglobin 28.8 pg 27.0-33.0 Norm al (applies to non-numeric results) [facility] ([facility]) Platelet Count, Automated 287 10 150-450 Normal (applies to non-numeric results) [facility] ([facility]) Red Cell Distribution Width 15.0 % 11.5-14.5 Above high normal [facility] ([facility]) Lymph % 15.1 % 24.0-44.0 Below low normal [facility] ( [facility]) Neutrophils % 75.0 % 36.0-66.0 Above high normal [facility] ([facility]) [place] % 6.7 % 2.0-8.0 Normal (applies to non-numeric resul ts) [facility] ([facility]) Baso % 0.7 % 0.0-1.0 Normal (applies to non-numeric resul ts) [facility] ([facility]) Eos % 1.6 % 0.0-3.0 Normal (applies to non-numeric resul ts) [facility] ([facility]) Immature Granulocyte % 0.9 % 0-3.0 Normal (applies to non-n umeric results) [facility] ([facility]) Nucleated Red Blood Cell % 0.0 % 0-0 Normal (applies to n on-numeric results) [facility] ([facility]) Lymph # 1.7 10 1.5-5.0 Normal (applies to non-numeric resul ts) [facility] ([facility]) Neutrophils # 8.4 10 1.5-8.5 Normal (applies to non-numeric re sults) [facility] ([facility]) [place] # 0.8 10 0.0-0.8 Normal (applies to non-numeric resul ts) [facility] ([facility]) Eos # 0.2 10 0.0-0.5 Normal (applies to non-numeric resul ts) [facility] ([facility]) Baso # 0.1 10 0.0-0.2 Normal (applies to non-numeric resul ts) [facility] ([facility]) ID Date Data Source [id number] 11/13/2020 10:02:00 [place] [address] PHONE: [phone] FAX: [phone] Name .................. : BHARATH JOHNSTON Irving Acct Number.................. : [id number] ROOM. ................. : MR Number ................... : [id number] Stay type ............. : O/P Discharge Date......... ... : 11/12/20 Admit Date ......... : 11/12/20 Admit Phys .................... : CATRACHOKYRIE ARCENIO Date of ....... : 1965 Family Phys ................... : MELVIN Phone .................. : [phone] Age ................................ : 55 Film# .................. .:[id number] Sex ................................. : F Unsigned transcriptions are preliminary reports and do not represent a medical or legal document MRI ABDOMEN W&W/O CONTRAST [id number] COMPLETE:11/12/20 11:34 [facility] 7531 Reason for Exam: LIVER LESION MRI OF THE ABDOMEN WITH AND WITHOUT CONTRAST, 11/12/20: CLINICAL INFORMATION: History of breast cancer for one year. Follow up liver lesion. Comparison: 07/02/19, 11/09/18. Technique: Multiplanar, multisequence pre- and post-contrast MR imaging of the abdomen was performed. Eovist 6 mL was injected intravenously for this study. FINDINGS: Lung bases: Clear, but not completely evaluated with ME. Liver: Normal contour. Unchanged 1.1 cm segment 7 hypointense lesion visible only on post- contrast imaging. No delayed enhancement with hepatobiliary excretion of Eovist. The lesion is benign, but remains non-specific. No other liver lesion. Moderate signal drop out on anaphase imaging, indicative of hepatic steatosis. Biliary system: Cholecystectomy. No biliary dilatation; mild post-cholecystectomy biliary ectasia. Pancreas: Normal, no pancreatic duct dilatation. Spleen: Normal. Kidneys: Symmetric enhancement. Mild enlargement of the exocytic, partially enhancing right renal mid pole nodule, which measures up to 1.3 cm. The lesion is suspicious for a tiny renal cell carcinoma. No other solid lesion. No hydronephrosis. Bowel: No obstruction. Page 1 of 2 [facility] [address] [place] [address] [place] [address] PHONE: [phone] FAX: [phone] Name .................. : BHARATH Villatoro Acct Number.................. : [id number] ROOM. ................. : Number ................... : [id number] Stay type ............. : O/P Discharge Date......... ... : 11/12/20 Admit Date ......... : 11/12/20 Admit Phys .................... : FORTUNATO RG Date of ....... : 1965 Family Phys ................... : MELVIN Phone .................. : [phone] Age ................................ : 55 Film# .................. .:[id number] Sex ............. .................... : F Unsigned transcriptions are preliminary reports and do not represent a medical or legal document MRI ABDOMEN W&W/O CONTRAST [id number] COMPLETE:11/12/20 11:34 [facility] 7531 Reason for Exam: LIVER LESION Peritoneum: No ascites. Lymph nodes: No adenopathy. Vessels: Normal caliber. Abdominal aorta demonstrates moderate atherosclerotic disease. No aneurysm identified. Normal inferior vena cava. Bones: No marrow signal abnormality. IMPRESSION: 1. Unchanged, benign, but non-specific hepatic segment 7 lesion. 2. Slow interval growth of the right renal mid pole enhancing lesion, suggestive of a small renal cell carcinoma. 3. Hepatic steatosis. Electronically Reviewed and Signed By Zuleyka Garza MD , 11/13/20 10:02, CATHY Transcribe Initials: SSR, Transcribe Date: 11/12/20 14:10, Dictation Date: Copy for: FORTUNATO URBANO M.D. via fax Copy for: 710 MED REC Page 2 of 2 Name Value Range Interpretation Code Description Data Carli rce(s) Supporting Document(s) ID Date Data Source [id number] 11/06/2020 12:17:00 PM EDT [facility] ([facility]) Name Value Range Interpretation Code Description Data Carli rce(s) Supporting Document(s) Ast/Sgot 35 U/L 7-37 Normal (applies to non-numeric resul ts) [facility] ([facility]) Alt/SGPT 61 U/L 12-78 Normal (applies to non-numeric resul ts) [facility] ([facility]) Alkaline Phosphatase 93 U/L 45-117 Normal (applies to non-num caroline results) [facility] ([facility]) Bilirubin,Direct Laboratory test result 0.0-0.2 Normal ( applies to non-numeric results) [facility] ([facility]) Bilirubin,Total 0.2 mg/dL 0.2-1.0 Normal (applies to non-numeric results) [facility] ([facility]) Total Protein 7.4 GM/DL 6.4-8.2 Normal (applies to non-numeric re sults) [facility] ([facility]) Albumin 3.9 GM/DL 3.2-5.2 Normal (applies to non-numeric resul ts) [facility] ([facility]) Albumin/Globulin Ratio 1.1 1.2-2.2 Below low normal [facility] ([facility]) ID Date Data Source [id number] 11/06/2020 12:17:00 PM EDT [facility] ([facility]) Name Value Range Interpretation Code Description Data Carli rce(s) Supporting Document(s) Urea nitrogen [Mass/volume] in Serum or Plasma 9 mg/dL 7 -18 Normal (applies to non-numeric results) [facility] ([facility]) ID Date Data Source [id number] 11/06/2020 12:17:00 PM EDT [facility]) Name Value Range Interpretation Code Description Data Carli rce(s) Supporting Document(s) Creatinine For GFR 0.72 mg/dL 0.55-1.30 Normal (applies to non -numeric results) [facility] ([facility]) Glomerular Filtration Rate Laboratory test result Normal (applies to non- numeric results) [facility]) <content>Units are mL/min/1.73 m2</content>
<content></content>
<content>Chronic Kidney Disease Staging per NKF:</content>
<content></content>
<content>Stage I & II GFR >=60 Normal to Mildly Decreased</content>
<content>Stage III GFR 30- 59 Moderately Decreased</content>
<content>Stage IV GFR 15-29 Severely Decreased</content>
<content>Stage V GFR <15 Very Little GFR Left</content>
<content>ESRD GFR <15 on DOOR ASSEMBLER</content>
<content></content> ID Date Data Source [id number] 11/06/2020 12:17:00 PM EDT [facility]) Name Value Range Interpretation Code Description Data Carli rce(s) Supporting Document(s) IgA [Mass/volume] in Serum or Plasma 250.0 mg/dL 70-400 Normal (applies to non- numeric results) [facility] ([facility]) Qxxkv-8-txqdqaplgfr.tumor marker [Mass/volume] in Seru m or Plasma Laboratory test result Normal (applies to non-numeric results) [facility] ([facility]) THE AFP ASSAY IS PERFORMED ON THE [employer] BY CHEMILUMINESCENCE AND SHOULD NOT BE COMPARED INTERCHANGEABLY WITH OTHER METHODS. IT SHOULD NOT BE USED ALONE A SCREENING TEST OR DIAGNOSIS FOR THE PRESENCE OR ABSENCE OF MALIGNANT DISEASE. THESE RESULTS ARE NOT INTERPRETABLE IN FEMALES. PREDICTIONS OF DISEASE RECURRENCE SHOULD NOT BE BASED SOLELY ON VALUES OBTAINED FROM SERIAL PATIENT SERUM VALUES. Tissue transglutaminase IgA Ab [Units/volume] in Serum Labor atory test result 0-3 Normal (applies to non-numeric results) [facility]) Negative 0 - 3 Weak Positive 4 - 10 Positive >10 . Tissue Transglutaminase (tTG) has been identified as the endomysial antigen. Studies have demonstr- ated that endomysial IgA antibodies have over 99% specificity for gluten sensitive enteropathy. Performed at: RN - [facility] [address] [id number] Greenskeeper Supervisor: Heide Lr MD, Phone: [phone] ID Date Data Source [id number] 11/06/2020 12:17:00 PM EDT [facility] ([facility]) Name Value Range Interpretation Code Description Data Carli rce(s) Supporting Document(s) Prothrombin Time 12.7 s 12.5-14.3 Normal (applies to non-numeric results) [facility]) Inr 0.93 Normal (applies to non-numeric resul ts) [facility] ([facility]) THERAPUTIC HUMAN INR VALUES INDICATIONS NORMAL RANGES PROPHYLAXIS/TREATMENT OF: VENOUS THROMBOSIS 2.0-3.0 PULMONARY EMBOLISM 2.0-3.0 PREVENTION OF SYSTEMIC EMBOLISM FROM: TISSUE HEART VALVES 2.0-3.0 ACUTE MYOCARDIAL INFARCTION 2.0-3.0 VALVULAR HEART DISEASE 2.0-3.0 ATRIAL FIBRILLATION 2.0-3.0 MECHANICAL VALVES(HIGH RISK) 2.5-3.5 RECURRENT MYOCARDIAL INFARCTION 2.5-3.5 ID Date Data Source [id number] 11/06/2020 12:17:00 PM EDT [facility] ([facility], ) Name Value Range Interpretation Code Description Data Carli rce(s) Supporting Document(s) Creatinine For GFR 0.72 mg/dL 0.55-1.30 Normal (applies to non -numeric results) [facility] ([facility]) Glomerular Filtration Rate Laboratory test result Normal (applies to non- numeric results) [facility] ([facility]) <content>Units are mL/min/1.73 m2</content>
<content></content>
<content>Chronic Kidney Disease Staging per NKF:</content>
<content></content>
<content>Stage I & II GFR >=60 Normal to Mildly Decreased</content>
<content>Stage III GFR 30- 59 Moderately Decreased</content>
<content>Stage IV GFR 15-29 Severely Decreased</content>
<content>Stage V GFR <15 Very Little GFR Left</content>
<content>ESRD GFR <15 on DOOR ASSEMBLER</content>
<content></content> ID Date Data Source [id number] 11/06/2020 12:17:00 PM EDT [facility] ([facility]) Name Value Range Interpretation Code Description Data Carli rce(s) Supporting Document(s) Urea nitrogen [Mass/volume] in Serum or Plasma 9 mg/dL 7 -18 Normal (applies to non-numeric results) [facility]) ID Date Data Source [id number] 11/06/2020 12:17:00 PM EDT [facility] ([facility]) Name Value Range Interpretation Code Description Data Carli rce(s) Supporting Document(s) Tissue transglutaminase IgA Ab [Units/volume] in Serum Labor atory test result 0-3 Normal (applies to non-numeric results) [facility] ([facility]) Negative 0 - 3 Weak Positive 4 - 10 Positive >10 . Tissue Transglutaminase (tTG) has been identified as the endomysial antigen. Studies have demonstr- ated that endomysial IgA antibodies have over 99% specificity for gluten sensitive enteropathy. Performed at: RN - [facility] [address] [id number] [employer] Supervisor: Heide Lr MD, Phone: [phone] IgA [Mass/volume] in Serum or Plasma 250.0 mg/dL 70-400 Normal (applies to non- numeric results) [facility]) ID Date Data Source [id number] 11/06/2020 12:17:00 PM EDT [facility]) Name Value Range Interpretation Code Description Data Carli rce(s) Supporting Document(s) Prothrombin Time 12.7 s 12.5-14.3 Normal (applies to non-numeric results) [facility] ([facility]) Inr 0.93 Normal (applies to non-numeric resul ts) [facility]) THERAPUTIC HUMAN INR VALUES INDICATIONS NORMAL RANGES PROPHYLAXIS/TREATMENT OF: VENOUS THROMBOSIS 2.0-3.0 PULMONARY EMBOLISM 2.0-3.0 PREVENTION OF SYSTEMIC EMBOLISM FROM: TISSUE HEART VALVES 2.0-3.0 ACUTE MYOCARDIAL INFARCTION 2.0-3.0 VALVULAR HEART DISEASE 2.0-3.0 ATRIAL FIBRILLATION 2.0-3.0 MECHANICAL VALVES(HIGH RISK) 2.5-3.5 RECURRENT MYOCARDIAL INFARCTION 2.5-3.5 ID Date Data Source [id number] 11/06/2020 12:17:00 PM EDT [facility]) Name Value Range Interpretation Code Description Data Carli rce(s) Supporting Document(s) Ast/Sgot 35 U/L 7-37 Normal (applies to non-numeric resul ts) [facility] ([facility]) Alt/SGPT 61 U/L 12-78 Normal (applies to non-numeric resul ts) [facility]) Alkaline Phosphatase 93 U/L 45-117 Normal (applies to non-num caroline results) [facility] ([facility]) Bilirubin,Total 0.2 mg/dL 0.2-1.0 Normal (applies to non-numeric results) [facility] ([facility]) Total Protein 7.4 GM/DL 6.4-8.2 Normal (applies to non-numeric re sults) [facility]) Bilirubin,Direct Laboratory test result 0.0-0.2 Normal ( applies to non-numeric results) [facility]) Albumin 3.9 GM/DL 3.2-5.2 Normal (applies to non-numeric resul ts) [facility]) Albumin/Globulin Ratio 1.1 1.2-2.2 Below low normal [facility]) ID Date Data Source [id number] 11/06/2020 12:17:00 PM EDT [facility]) Name Value Range Interpretation Code Description Data Carli rce(s) Supporting Document(s) Ssdhg-8-Lgmssmeyzhh [Mass/volume] in Serum or Plasma Laboratory test result Normal (applies to non-numeric results) [facility] THE AFP ASSAY IS PERFORMED ON THE Retrieve[employer]UR BY CHEMILUMINESCENCE AND SHOULD NOT BE COMPARED INTERCHANGEABLY WITH OTHER METHODS. IT SHOULD NOT BE USED ALONE A SCREENING TEST OR DIAGNOSIS FOR THE PRESENCE OR ABSENCE OF MALIGNANT DISEASE. THESE RESULTS ARE NOT INTERPRETABLE IN FEMALES. PREDICTIONS OF DISEASE RECURRENCE SHOULD NOT BE BASED SOLELY ON VALUES OBTAINED FROM SERIAL PATIENT SERUM VALUES. ID Date Data Source [id number] 11/04/2020 11:34:00 AM EDT [facility] ([facility]) Name Value Range Interpretation Code Description Data Carli rce(s) Supporting Document(s) Free Lambda Light Chains Serum 27.5 mg/L 5.7-26.3 Above high jaylyn l [facility] ([facility]) Free Bruni Light Chains Serum 32.0 mg/L 3.3-19.4 Above high normal [facility] ([facility]) Bruni/Lambda Ratio Serum 1.16 0.26-1.65 Normal (applies to non-numeric results) [facility] ([facility]) Performed at: RN - [facility] [place] [id number] [employer] Supervisor: Heide Lr MD, Phone: [phone] ID Date Data Source [id number] 11/04/2020 11:34:00 AM EDT [facility] ([facility]) Name Value Range Interpretation Code Description Data Carli rce(s) Supporting Document(s) Albumin % 57.2 % 55.8-66.1 Normal (applies to non-numeric resul ts) [facility] ([facility]) Nfbmv-9-Wludvngy % 3.6 % 2.9-4.9 Normal (applies to non-numer ic results) [facility] ([facility]) Cecma-0-Komlqiwim % 10.8 % 7.1-11.8 Normal (applies to non-nume abisai results) [facility] ([facility]) Xodz-8-Uihipyzwa % 5.6 % 3.2-6.5 Normal (applies to non-numer ic results) [facility] ([facility]) Zdyd-2-Lhtozdnrh % 6.5 % 4.7-7.2 Normal (applies to non-numer ic results) [facility] ([facility]) Gamma Globulin % 16.3 % 11.1-18.8 Normal (applies to non-numeric results) [facility] ([facility]) Albumin 4.29 GM/DL 3.29-5.55 Normal (applies to non-numeric resul ts) [facility] ([facility]) Cpnxa-9-Vycjlmjnj 0.27 GM/DL 0.17-0.41 Normal (applies to non- numeric results) [facility] ([facility]) Lqeqq-7-Kagfhrhow 0.81 GM/DL 0.42-0.99 Normal (applies to non- numeric results) [facility] ([facility]) Qhgl-8-Auqmqeocg 0.49 GM/DL 0.28-0.60 Normal (applies to non-numeric results) [facility] ([facility]) Vocy-9-Hkrtilhbu 0.42 GM/DL 0.19-0.55 Normal (applies to non-numeric results) [facility] ([facility]) Total Protein 7.5 GM/DL 6.4-8.2 Normal (applies to non-numeric re sults) [facility] ([facility]) Gamma Globulins 1.22 GM/DL 0.65-1.58 Normal (applies to non-numeric results) [facility] ([facility]) Spep Interpretation Laboratory test result Jaylyn l (applies to non-numeric results) [facility] ([facility]) ATYPICAL SHAPE OF GAMMA REGION NOTED. UN ABLE TO DEFINITIVELY DETERMINE THE PRESENCE OF ATYPICAL BANDS. SUGGEST FOLLOW-UP IN 6-9 MONTHS IF PATIENT'S SYMPTOMS WARRANT. Laboratory test finding (navigational concept) Laboratory test r esult Normal (applies to non-numeric results) [facility] ([facility]) REV'D BY O ADJAPONG ID Date Data Source [id number] 11/04/2020 11:34:00 AM EDT [facility] ([facility]) Name Value Range Interpretation Code Description Data Carli rce(s) Supporting Document(s) Laboratory test finding (navigational concept) Laboratory test r esult Normal (applies to non-numeric results) [facility] ([facility]) ATYPICAL SHAPE OF GAMMA REGION NOTED. UN ABLE TO DEFINITIVELY DETERMINE THE PRESENCE OF ATYPICAL BANDS. SUGGEST FOLLOW-UP IN 6-9 MONTHS IF PATIENT'S SYMPTOMS WARRANT. Laboratory test finding (navigational concept) Laboratory test r esult Normal (applies to non-numeric results) [facility] ([facility]) REV'D BY Reji AMATO ID Date Data Source [id number] 11/04/2020 11:34:00 AM EDT [facility] ([facility]) Name Value Range Interpretation Code Description Data Carli rce(s) Supporting Document(s) Parathyrin.intact [Mass/volume] in Serum or Plasma 13.3 pg/mL 18.5-88.0 Below low normal [facility] ([facility]) ID Date Data Source [id number] 11/04/2020 11:34:00 AM EDT [facility] ([facility]) Name Value Range Interpretation Code Description Data Carli rce(s) Supporting Document(s) Glucose, Fasting 128 mg/dL 70-100 Above high normal [facility] ([facility]) Blood Urea Nitrogen 12 mg/dL 7-18 Normal (applies to non-nume abisai results) [facility] ([facility]) Creatinine For GFR 0.79 mg/dL 0.55-1.30 Normal (applies to non -numeric results) [facility] ([facility]) Glomerular Filtration Rate Laboratory test result Normal (applies to non- numeric results) [facility] ([facility]) <content>Units are mL/min/1.73 m2</content>
<content></content>
<content>Chronic Kidney Disease Staging per NKF:</content>
<content></content>
<content>Stage I & II GFR >=60 Normal to Mildly Decreased</content>
<content>Stage III GFR 30- 59 Moderately Decreased</content>
<content>Stage IV GFR 15-29 Severely Decreased</content>
<content>Stage V GFR <15 Very Little GFR Left</content>
<content>ESRD GFR <15 on DOOR ASSEMBLER</content>
<content></content> Sodium Level 139 meq/L 136-145 Normal (applies to non-numeric res ults) [facility] ([facility]) Potassium Serum 4.6 meq/L 3.5-5.1 Normal (applies to non-numeric results) [facility] ([facility]) Chloride Level 107 meq/L 98-107 Normal (applies to non-numeric r esults) [facility] ([facility]) Anion Gap 4 meq/L 8-16 Below low normal [facility] ( [facility]) Carbon Dioxide Level 28 meq/L 21-32 Normal (applies to non-num caroline results) [facility] ([facility]) Calcium Level 9.8 mg/dL 8.5-10.1 Normal (applies to non-numeric re sults) [facility] ([facility]) Ast/Sgot 20 U/L 7-37 Normal (applies to non-numeric resul ts) [facility] ([facility]) Alt/SGPT 45 U/L 12-78 Normal (applies to non-numeric resul ts) [facility] ([facility]) Alkaline Phosphatase 86 U/L 45-117 Normal (applies to non-num caroline results) [facility] ([facility]) Bilirubin,Total 0.4 mg/dL 0.2-1.0 Normal (applies to non-numeric results) [facility] ([facility]) Total Protein 7.5 GM/DL 6.4-8.2 Normal (applies to non-numeric re sults) [facility] ([facility]) Albumin 3.8 GM/DL 3.2-5.2 Normal (applies to non-numeric resul ts) [facility] ([facility]) Albumin/Globulin Ratio 1.0 1.2-2.2 Below low normal [facility] ([facility]) ID Date Data Source [id number] 10/27/2020 12:44:00 PM EDT [facility] ([facility]) Name Value Range Interpretation Code Description Data Carli rce(s) Supporting Document(s) Ferritin [Mass/volume] in Serum or Plasma 34 ng/mL 8-252 Normal (applies to non- numeric results) [facility] ([facility]) ID Date Data Source [id number] 10/27/2020 12:44:00 PM EDT [facility] ([facility]) Name Value Range Interpretation Code Description Data Carli rce(s) Supporting Document(s) Total Iron Binding Capacity 412 ug/dL 250-450 Norm al (applies to non-numeric results) [facility] ([facility]) Iron (Fe) 63 ug/dL 50-170 Normal (applies to non-numeric resul ts) [facility] ([facility]) Percent Saturation 15.3 % 13.2-45.0 Normal (applies to non-numer ic results) [facility] ([facility]) ID Date Data Source [id number] 10/27/2020 12:44:00 PM EDT [facility] ([facility]) Name Value Range Interpretation Code Description Data Carli rce(s) Supporting Document(s) Blood Urea Nitrogen 13 mg/dL 7-18 Normal (applies to non-nume abisai results) [facility] ([facility]) Glucose, Fasting 91 mg/dL 70-100 Normal (applies to non-numeric results) [facility] ([facility]) Creatinine For GFR 0.98 mg/dL 0.55-1.30 Normal (applies to non -numeric results) [facility] ([facility]) Glomerular Filtration Rate Laboratory test result Normal (applies to non- numeric results) [facility] ([facility]) <content>Units are mL/min/1.73 m2</content>
<content></content>
<content>Chronic Kidney Disease Staging per NKF:</content>
<content></content>
<content>Stage I & II GFR >=60 Normal to Mildly Decreased</content>
<content>Stage III GFR 30- 59 Moderately Decreased</content>
<content>Stage IV GFR 15-29 Severely Decreased</content>
<content>Stage V GFR <15 Very Little GFR Left</content>
<content>ESRD GFR <15 on DOOR ASSEMBLER</content>
<content></content> Sodium Level 137 meq/L 136-145 Normal (applies to non-numeric res ults) [facility] ([facility]) Potassium Serum 4.1 meq/L 3.5-5.1 Normal (applies to non-numeric results) [facility] ([facility]) Carbon Dioxide Level 29 meq/L 21-32 Normal (applies to non-num caroline results) [facility] ([facility]) Chloride Level 104 meq/L 98-107 Normal (applies to non-numeric r esults) [facility] ([facility]) Anion Gap 4 meq/L 8-16 Below low normal [facility] ( [facility]) Calcium Level 10.3 mg/dL 8.5-10.1 Above high normal [facility] ([facility]) Alt/SGPT 51 U/L 12-78 Normal (applies to non-numeric resul ts) [facility] ([facility]) Ast/Sgot 24 U/L 7-37 Normal (applies to non-numeric resul ts) [facility] ([facility]) Bilirubin,Total 0.3 mg/dL 0.2-1.0 Normal (applies to non-numeric results) [facility] ([facility]) Alkaline Phosphatase 85 U/L 45-117 Normal (applies to non-num caroline results) [facility] ([facility]) Total Protein 8.5 GM/DL 6.4-8.2 Above high normal [facility] ([facility]) Albumin 4.2 GM/DL 3.2-5.2 Normal (applies to non-numeric resul ts) [facility] ([facility]) Albumin/Globulin Ratio 1.0 1.2-2.2 Below low normal [facility] ([facility]) ID Date Data Source [id number] 10/27/2020 12:44:00 PM EDT [facility] ([facility]) Name Value Range Interpretation Code Description Data Carli rce(s) Supporting Document(s) White Blood Count 10.4 10 4.0-10.0 Above high normal [facility] ([facility]) Red Blood Count 4.99 10 4.00-5.40 Normal (applies to non-numeric results) [facility] ([facility]) Hemoglobin 14.0 g/dL 12.0-15.5 Normal (applies to non-numeric resul ts) [facility] ([facility]) Mean Corpuscular Volume 87.2 fl 80.0-96.0 Normal ( applies to non-numeric results) [facility] ([facility]) Hematocrit 43.5 % 36.0-47.0 Normal (applies to non-numeric resul ts) [facility] Mean Corpuscular Hemoglobin 28.1 pg 27.0-33.0 Norm al (applies to non-numeric results) [facility]) Mean Corpuscular HGB Conc 32.2 g/dL 32.0-36.5 Normal (applies to non-numeric results) [facility] ([facility]) Red Cell Distribution Width 13.6 % 11.5-14.5 Norm al (applies to non-numeric results) [facility] ([facility]) Platelet Count, Automated 345 10 150-450 Normal (applies to non-numeric results) [facility] ([facility]) Neutrophils % 54.5 % 36.0-66.0 Normal (applies to non-numeric re sults) [facility] ([facility]) Lymph % 35.7 % 24.0-44.0 Normal (applies to non-numeric resul ts) [facility] ([facility]) [place] % 6.4 % 2.0-8.0 Normal (applies to non-numeric resul ts) [facility] ([facility]) Eos % 1.8 % 0.0-3.0 Normal (applies to non-numeric resul ts) [facility] ([facility]) Immature Granulocyte % 0.6 % 0-3.0 Normal (applies to non-n umeric results) [facility]) Baso % 1.0 % 0.0-1.0 Normal (applies to non-numeric resul ts) [facility]) Nucleated Red Blood Cell % 0.0 % 0-0 Normal (applies to n on-numeric results) [facility] ([facility]) Neutrophils # 5.7 10 1.5-8.5 Normal (applies to non-numeric re sults) [facility] ([facility]) Lymph # 3.7 10 1.5-5.0 Normal (applies to non-numeric resul ts) [facility]) [place] # 0.7 10 0.0-0.8 Normal (applies to non-numeric resul ts) [facility] ([facility]) Baso # 0.1 10 0.0-0.2 Normal (applies to non-numeric resul ts) [facility] ([facility]) Eos # 0.2 10 0.0-0.5 Normal (applies to non-numeric resul ts) [facility] ([facility]) ID Date Data Source [id number] 09/24/2020 09:56:00 AM EST [facility] ([facility]) Name Value Range Interpretation Code Description Data Carli rce(s) Supporting Document(s) Treponema pallidum Ab [Presence] in Serum Laboratory test result [facility]) Is patient fasting? Y ID Date Data Source [id number] 09/24/2020 09:56:00 AM EST [facility] ([facility]) Name Value Range Interpretation Code Description Data Carli rce(s) Supporting Document(s) HIV Screen 4thGeneration wRfx Laboratory test result [facility]) Is patient fasting? Y ID Date Data Source [id number] 09/24/2020 09:56:00 AM EST [facility] ([facility]) Name Value Range Interpretation Code Description Data Carli rce(s) Supporting Document(s) Thyrotropin [Units/volume] in Serum or Plasma 1.26 uIU/mL 0.47-5.01 [facility] ([facility]) Is patient fasting? Y Laboratory test finding (navigational concept) 0.1 s/coratio 0.0-0.9 [facility] ([facility]) Is patient fasting? Y Iron [Mass/volume] in Serum or Plasma 62 ug/dL 42-135 [facility]) Is patient fasting? Y ID Date Data Source [id number] 09/24/2020 09:56:00 AM EST [facility] ([facility]) Name Value Range Interpretation Code Description Data Carli rce(s) Supporting Document(s) Comprehensive Metabo Laboratory test result [facility]) Is patient fasting? Y Sodium 135 meq/L 134-153 [facility]) Is patient fasting? Y Co2 24 meq/L 22-30 [facility]) Is patient fasting? Y Potassium 4.6 meq/L 3.6-5.0 [facility] ([facility]) Is patient fasting? Y Chloride 101 meq/L 98-107 [facility] ([facility]) Is patient fasting? Y BUN 13 mg/dL 7-21 [facility] ([facility]) Is patient fasting? Y Glucose 159 mg/dL 70-99 Above high normal [facility] ([facility]) Is patient fasting? Y BUN/Creat 16 8-27 [facility] ([facility]) Is patient fasting? Y Creatinine 0.8 mg/dL 0.7-1.5 [facility]) Is patient fasting? Y Globulin 3.6 GM/DL 2.4-3.2 Above high normal [facility] ([facility]) Is patient fasting? Y Total Protein 7.9 g/dL 6.3-8.2 [facility] Is patient fasting? Y Albumin 4.3 g/dL 3.9-5.0 [facility] ([facility]) Is patient fasting? Y Calcium 9.7 mg/dL 8.4-10.2 [facility] ([facility]) Is patient fasting? Y A/G Ratio 1.2 0.8-2.0 [facility] ([facility]) Is patient fasting? Y Total Bili Laboratory test result 0.2-1.3 [facility] ([facility]) Is patient fasting? Y Alkaline Phos 77 U/L 38-126 [facility] ([facility]) Is patient fasting? Y Sgot/Ast 17 U/L 5-40 [facility] ([facility]) Is patient fasting? Y Anion Gap 10.0 mmol/L 8.0-16.0 [facility] ([facility]) Is patient fasting? Y SGPT/Alt 18 U/L 7-56 [facility] ([facility]) Is patient fasting? Y Afr Amer GFR Laboratory test result [facility] ([facility]) Is patient fasting? Y Non-Aa GFR Laboratory test result [facility] ([facility]) Is patient fasting? Y Age 55 yrs [facility] ([facility]) Is patient fasting? Y ID Date Data Source [id number] 09/24/2020 09:56:00 AM EST [facility] ([facility]) Name Value Range Interpretation Code Description Data Carli rce(s) Supporting Document(s) Hemoglobin A1c/Hemoglobin.total in Blood 7.6 % 4.4-6.1 Above high normal [facility] ([facility]) Is patient fasting? Y ID Date Data Source [id number] 09/24/2020 09:56:00 AM EST [facility] ([facility]) Name Value Range Interpretation Code Description Data Carli rce(s) Supporting Document(s) CBC No Diff Laboratory test result [facility] ([facility]) Is patient fasting? Y RBC 4.46 10^6/uL 4.20-5.40 [facility] ([facility]) Is patient fasting? Y Hemoglobin 13.0 g/dL 12.0-16.0 [facility] ([facility]) Is patient fasting? Y WBC 7.9 10^3/uL 4.2-11.0 [facility] ([facility]) Is patient fasting? Y Hematocrit 39.7 % 37.0-47.0 [facility] ([facility]) Is patient fasting? Y MCV 89.0 fL 81.0-101 [facility] ([facility]) Is patient fasting? Y MCH 29.1 pg 27.0-34.0 [facility] ([facility]) Is patient fasting? Y MCHC 32.7 g/dL 31.0-36.0 [facility] ([facility]) Is patient fasting? Y RDW 13.2 % 11.5-14.5 [facility] ([facility]) Is patient fasting? Y Platelets 368 10^3/uL 150-450 [facility] ([facility]) Is patient fasting? Y MPV 9.2 fL 7.4-10.4 [facility] ([facility]) Is patient fasting? Y ID Date Data Source [id number] 09/25/2020 08:25:00 AM [facility] Name Value Range Interpretation Code Description Data Carli rce(s) Supporting Document(s) HIV 1+2 Ab+HIV1 p24 Ag [Presence] in Serum or Plasma b y Immunoassay Non Reactive Non Reactive [facility] ID Date Data Source [id number] 09/25/2020 08:25:00 AM [facility] Value Range Interpretation Code Description Data Carli rce(s) Supporting Document(s) Hepatitis C virus Ab Signal/Cutoff in Serum or Plasma by Immunoassay 0.1 s/coratio 0.0-0.9 [facility] ID Date Data Source [id number] 09/24/2020 01:58:00 PM [facility] Name Value Range Interpretation Code Description Data Carli rce(s) Supporting Document(s) Treponema pallidum Ab [Presence] in Serum NON-REACTIVE NORMAL:NON AVELINA CTIVE [facility] ID Date Data Source [id number] 09/24/2020 01:53:00 PM [facility] Value Range Interpretation Code Description Data Carli rce(s) Supporting Document(s) Thyrotropin [Units/volume] in Serum or Plasma by Detec tion limit <= 0.05 mIU/L 1.26 uIU/mL 0.47 - 5.01 [facility] ID Date Data Source [id number] 09/24/2020 01:50:00 PM [facility] Value Range Interpretation Code Description Data Carli rce(s) Supporting Document(s) Hemoglobin A1c/Hemoglobin.total in Blood 7.6 % 4.4 - 6.1 H [facility] {A1]{HB] ID Date Data Source [id number] 09/24/2020 01:50:00 PM [facility] Value Range Interpretation Code Description Data Carli rce(s) Supporting Document(s) COMPREHENSIVE METABOLIC PANEL [facility] COMPREHENSIVE METABOLIC PANEL Sodium [Moles/volume] in Serum or Plasma 135 mEq/L 134 - 153 [facility] Potassium [Moles/volume] in Serum or Plasma 4.6 mEq/L 3.6 - 5.0 [facility] Chloride [Moles/volume] in Serum or Plasma 101 mEq/L 98 - 107 [facility] Carbon dioxide, total [Moles/volume] in Serum or Plasma 24 MEQ/L 22 - 30 [facility] Glucose [Mass/volume] in Serum or Plasma 159 MG/DL 70 - 99 [facility] [facility] BUN 13 MG/DL 7 - 21 [facility] al Creatinine [Mass/volume] in Serum or Plasma 0.8 MG/DL 0.7 - 1.5 [facility] BUN/CREAT 16 8 - 27 [facility] al Protein [Mass/volume] in Serum or Plasma 7.9 G/DL 6.3 - 8.2 [facility] Albumin [Mass/volume] in Serum or Plasma 4.3 G/DL 3.9 - 5.0 [facility] Globulin [Mass/volume] in Serum by calculation 3.6 GM/DL 2.4 - 3.2 H [facility] A/G RATIO 1.2 0.8 - 2.0 [facility] Calcium [Mass/volume] in Serum or Plasma 9.7 MG/DL 8.4 - 10.2 [facility] Bilirubin.total [Mass/volume] in Serum or Plasma <0.7 MG/DL 0.2 - 1.3 [facility] Alkaline phosphatase [Enzymatic activity/volume] in Serum or Plasma 77 U/L 38 - 126 [facility] Aspartate aminotransferase [Enzymatic activity/volume] in Serum or Plasma 17 U/L 5 - 40 [facility] Alanine aminotransferase [Enzymatic activity/volume] in Seru m or Plasma 18 U/L 7 - 56 [facility] Anion gap 3 in Serum or Plasma 10.0 mmol/L 8.0 - 16.0 [facility] AGE 55 yrs [facility] al NON-AA GFR >60 mL/min [facility] Hosp ital AFR AMER GFR >60 mL/min [facility] Ho spital Male GFR In terprentation 20-49 yrs >60 mL/min Normal 50-59 yrs >56 mL/min Normal 60-69 yrs >49 mL/min Normal 70-79yrs >42 mL/min Normal 80 and above >35 mL/min Normal Female GFR Interpretation 20-39 yrs >60 mL/min Normal 40-49 yrs >58 mL/min Normal 50-59 yrs >51 mL/min Normal 60-69 yrs >45 mL/min Normal 70-79 yrs >39 mL/min Normal 80 and above >32 mL/min Normal ID Date Data Source [id number] 09/24/2020 01:47:00 PM EST [facility] Name Value Range Interpretation Code Description Data Carli rce(s) Supporting Document(s) CBC NO DIFF [facility] ital COMPLETE BLOOD COUNT Leukocytes [#/volume] in Blood by Automated count 7.9 10^3/uL 4.2 - 1 1.0 [facility] Erythrocytes [#/volume] in Blood by Automated count 4.46 10^6/uL 4. 20 - 5.40 [facility] Hemoglobin [Mass/volume] in Blood 13.0 g/dL 12.0 - 16.0 [facility] Hematocrit [Volume Fraction] of Blood by Automated count 39.7 % 3 7.0 - 47.0 [facility] Erythrocyte mean corpuscular volume [Entitic volume] by Auto mated count 89.0 fL 81.0 - 101 [facility] Erythrocyte mean corpuscular hemoglobin [Entitic mass] by Automated count 29.1 pg 27.0 - 34.0 [facility] Erythrocyte mean corpuscular hemoglobin concentration [Mass/volume] by Automated count 32.7 g/dL 31.0 - 36.0 [facility] Erythrocyte distribution width [Ratio] by Automated count 13.2 % 11.5 - 14.5 [facility] Platelets [#/volume] in Blood by Automated count 368 10^3/uL 150 - 45 0 [facility] Platelet mean volume [Entitic volume] in Blood by Automated count 9.2 fL 7.4 - 10.4 [facility] ID Date Data Source [id number] 09/24/2020 01:37:00 PM [facility] Name Value Range Interpretation Code Description Data Carli rce(s) Supporting Document(s) Iron [Mass/volume] in Serum or Plasma 62 UG/DL 42 - 135 [facility] ID Date Data Source [id number] 06/18/2020 10:58:00 AM EST [facility] ([facility]) Name Value Range Interpretation Code Description Data Carli rce(s) Supporting Document(s) Estradiol (E2) [Mass/volume] in Serum or Plasma Laboratory test result Normal (applies to non-numeric results) [facility] ([facility]) <content>NORMAL MENSTRUATING FEMALES:</content>
<content></content>
<content>FOLLICULAR PHASE 19.5-144.2 PG/ML</content>
<content>MID CYCLE PEAK 63.9- 356.7 PG/ML</content>
<content>LUTEAL PHASE 55.8-214.2 PG/ML</content>
<content></content>
<content>POST MENOPAUSAL FEMALES <32.2 PG/ML</content>
<content>(UNTREATED)</content>
<content></content>
<content>THE eESTRADIOL2 ASSAY IS PERFORMED ON THE [place] BY</content>
<content>CHEMILUMINESCENCE AND SHOULD NOT BE COMPARED INTERCHANGEABLY</content>
<content>WITH OTHER METHODS.</content>
<content></content>
<content>Falsely elevated Estradiol test results can be seen in</content>
<content>patients treated with fulvestrant (Faslodex). Estradiol</content>
<content>concentrations in fulvestrant treated women should only be</content>
<content>measured by LC- MS (Liquid Chromatography-Mass Spectrometry).</content>
<content></content> Follitropin [Units/volume] in Serum or Plasma 115.0 mIU/mL Normal (applies to non-numeric results) [facility] ([facility]) <content>NORMAL MENSTRUATING FEMALES:</c ontent>
<content>FOLLICULAR PHASE 2.5-10.2 mIU/mL</content>
<content>MID CYCLE PEAK 3.4-33.4 mIU/mL</content>
<content>LUTEAL PHASE 1.5-9.1 mIU/mL</content>
<content></content>
<content>: <0.3 mIU/mL</content>
<content>POST MENOPAUSAL FEMALES: 23.0-116.3 mIU/mL</content>
<content></content> Lutropin [Units/volume] in Serum or Plasma 62.9 mIU/mL Normal (applies to non- numeric results) [facility] ([facility]) <content>NORMAL MENSTRUATING FEMALES:</c ontent>
<content>FOLLICULAR PHASE 1.9-12.5 mIU/mL</content>
<content>MID CYCLE PEAK 8.7-76.3 mIU/mL</content>
<content>LUTEAL PHASE 0.5-16.9 mIU/mL</content>
<content></content>
<content> <1.5 mIU/mL</content>
<content>POST MENOPAUSAL FEMALES: 15.9-54.0 mIU/mL</content>
<content>CONTRACEPTIVES 0.7-5.6 mIU/mL</content>
<content></content> Ferritin [Mass/volume] in Serum or Plasma 47 ng/mL 8-252 Normal (applies to non- numeric results) [facility] ([facility]) ID Date Data Source [id number] 06/18/2020 10:58:00 AM EST [facility] ([facility]) Name Value Range Interpretation Code Description Data Carli rce(s) Supporting Document(s) Iron (Fe) 51 ug/dL 50-170 Normal (applies to non-numeric resul ts) [facility] ([facility]) Percent Saturation 13.9 % 13.2-45.0 Normal (applies to non-numer ic results) [facility] ([facility]) Total Iron Binding Capacity 367 ug/dL 250-450 Norm al (applies to non-numeric results) [facility] ([facility]) ID Date Data Source [id number] 06/18/2020 10:58:00 AM EST [facility] ([facility]) Name Value Range Interpretation Code Description Data Carli rce(s) Supporting Document(s) Glucose, Fasting 233 mg/dL 70-100 Above high normal [facility] ([facility]) Blood Urea Nitrogen 12 mg/dL 7-18 Normal (applies to non-nume abisai results) [facility] ([facility]) Glomerular Filtration Rate Laboratory test result Normal (applies to non- numeric results) [facility] ([facility]) <content>Units are mL/min/1.73 m2</content>
<content></content>
<content>Chronic Kidney Disease Staging per NKF:</content>
<content></content>
<content>Stage I & II GFR >=60 Normal to Mildly Decreased</content>
<content>Stage III GFR 30- 59 Moderately Decreased</content>
<content>Stage IV GFR 15-29 Severely Decreased</content>
<content>Stage V GFR <15 Very Little GFR Left</content>
<content>ESRD GFR <15 on DOOR ASSEMBLER</content>
<content></content> Creatinine For GFR 0.88 mg/dL 0.55-1.30 Normal (applies to non -numeric results) [facility] ([facility]) Sodium Level 136 meq/L 136-145 Normal (applies to non-numeric res ults) [facility] ([facility]) Potassium Serum 4.4 meq/L 3.5-5.1 Normal (applies to non-numeric results) [facility] ([facility]) Chloride Level 107 meq/L 98-107 Normal (applies to non-numeric r esults) [facility] ([facility]) Carbon Dioxide Level 23 meq/L 21-32 Normal (applies to non-num caroline results) [facility] ([facility]) Anion Gap 6 meq/L 8-16 Below low normal [facility] ( [facility]) Calcium Level 9.8 mg/dL 8.5-10.1 Normal (applies to non-numeric re sults) [facility] ([facility]) Ast/Sgot 23 U/L 7-37 Normal (applies to non-numeric resul ts) [facility] ([facility]) Alkaline Phosphatase 99 U/L 45-117 Normal (applies to non-num carloine results) [facility] ([facility]) Alt/SGPT 42 U/L 12-78 Normal (applies to non-numeric resul ts) [facility] ([facility]) Bilirubin,Total 0.2 mg/dL 0.2-1.0 Normal (applies to non-numeric results) [facility] ([facility]) Albumin 3.7 GM/DL 3.2-5.2 Normal (applies to non-numeric resul ts) [facility] ([facility]) Total Protein 7.6 GM/DL 6.4-8.2 Normal (applies to non-numeric re sults) [facility] ([facility]) Albumin/Globulin Ratio 0.9 1.2-2.2 Below low normal [facility] ID Date Data Source [id number] 06/18/2020 10:58:00 AM EST [facility] ([facility]) Name Value Range Interpretation Code Description Data Carli rce(s) Supporting Document(s) Red Blood Count 4.43 10 4.00-5.40 Normal (applies to non-numeric results) [facility] ([facility]) White Blood Count 7.9 10 4.0-10.0 Normal (applies to non-numeri c results) [facility] ([facility]) Hematocrit 38.5 % 36.0-47.0 Normal (applies to non-numeric resul ts) [facility] ([facility]) Hemoglobin 12.3 g/dL 12.0-15.5 Normal (applies to non-numeric resul ts) [facility] ([facility]) Mean Corpuscular Hemoglobin 27.8 pg 27.0-33.0 Norm al (applies to non-numeric results) [facility] ([facility]) Mean Corpuscular Volume 86.9 fl 80.0-96.0 Normal ( applies to non-numeric results) [facility] ([facility]) Mean Corpuscular HGB Conc 31.9 g/dL 32.0-36.5 Below low normal [facility] ([facility]) Red Cell Distribution Width 15.4 % 11.5-14.5 Above high normal [facility] ([facility]) Platelet Count, Automated 301 10 150-450 Normal (applies to non-numeric results) [facility] ([facility]) Neutrophils % 52.7 % 36.0-66.0 Normal (applies to non-numeric re sults) [facility] ([facility]) [place] % 7.3 % 0.0-5.0 Above high normal [facility] ([facility]) Lymph % 35.1 % 24.0-44.0 Normal (applies to non-numeric resul ts) [facility] ([facility]) Eos % 3.2 % 0.0-3.0 Above high normal [facility] ([facility]) Immature Granulocyte % 0.9 % 0-3.0 Normal (applies to non-n umeric results) [facility] ([facility]) Baso % 0.8 % 0.0-1.0 Normal (applies to non-numeric resul ts) [facility] ([facility]) Nucleated Red Blood Cell % 0.0 % 0-0 Normal (applies to n on-numeric results) [facility] ([facility]) Neutrophils # 4.2 10 1.5-8.5 Normal (applies to non-numeric re sults) [facility] ([facility]) Lymph # 2.8 10 1.5-5.0 Normal (applies to non-numeric resul ts) [facility] ([facility]) [place] # 0.6 10 0.0-0.8 Normal (applies to non-numeric resul ts) [facility] ([facility]) Eos # 0.3 10 0.0-0.5 Normal (applies to non-numeric resul ts) [facility] ([facility]) Baso # 0.1 10 0.0-0.2 Normal (applies to non-numeric resul ts) [facility] ([facility]) ID Date Data Source [id number] 03/28/2020 10:33:00 AM EDT [facility] ([facility]) Name Value Range Interpretation Code Description Data Carli rce(s) Supporting Document(s) Ferritin [Mass/volume] in Serum or Plasma 22 ng/mL 8-252 Normal (applies to non- numeric results) [facility] ([facility]) ID Date Data Source [id number] 03/28/2020 10:33:00 AM EDT [facility] ([facility]) Name Value Range Interpretation Code Description Data Carli rce(s) Supporting Document(s) Iron (Fe) 43 ug/dL 50-170 Below low normal [facility] ( [facility]) Total Iron Binding Capacity 409 ug/dL 250-450 Norm al (applies to non-numeric results) [facility] ([facility]) Percent Saturation 10.5 % 13.2-45.0 Below low normal [facility] ([facility]) ID Date Data Source [id number] 03/28/2020 10:33:00 AM EDT [facility] ([facility]) Name Value Range Interpretation Code Description Data Carli rce(s) Supporting Document(s) Blood Urea Nitrogen 9 mg/dL 7-18 Normal (applies to non-nume abisai results) [facility] ([facility]) Glucose, Fasting 147 mg/dL 70-100 Above high normal [facility] Glomerular Filtration Rate Laboratory test result Normal (applies to non- numeric results) [facility]) <content>Units are mL/min/1.73 m2</content>
<content></content>
<content>Chronic Kidney Disease Staging per NKF:</content>
<content></content>
<content>Stage I & II GFR >=60 Normal to Mildly Decreased</content>
<content>Stage III GFR 30- 59 Moderately Decreased</content>
<content>Stage IV GFR 15-29 Severely Decreased</content>
<content>Stage V GFR <15 Very Little GFR Left</content>
<content>ESRD GFR <15 on DOOR ASSEMBLER</content>
<content></content> Creatinine For GFR 0.88 mg/dL 0.55-1.30 Normal (applies to non -numeric results) [facility] ([facility]) Potassium Serum 4.2 meq/L 3.5-5.1 Normal (applies to non-numeric results) [facility] ([facility]) Sodium Level 139 meq/L 136-145 Normal (applies to non-numeric res ults) [facility] ([facility]) Chloride Level 110 meq/L 98-107 Above high normal [facility] ([facility]) Anion Gap 5 meq/L 8-16 Below low normal [facility] Carbon Dioxide Level 24 meq/L 21-32 Normal (applies to non-num caroline results) [facility] ([facility]) Calcium Level 9.6 mg/dL 8.5-10.1 Normal (applies to non-numeric re sults) [facility] ([facility]) Ast/Sgot 30 U/L 7-37 Normal (applies to non-numeric resul ts) [facility] ([facility]) Alt/SGPT 47 U/L 12-78 Normal (applies to non-numeric resul ts) [facility] ([facility]) Alkaline Phosphatase 100 U/L 45-117 Normal (applies to non-num caroline results) [facility] Bilirubin,Total 0.2 mg/dL 0.2-1.0 Normal (applies to non-numeric results) [facility] ([facility]) Total Protein 7.9 GM/DL 6.4-8.2 Normal (applies to non-numeric re sults) [facility] ([facility]) Albumin 3.7 GM/DL 3.2-5.2 Normal (applies to non-numeric resul ts) [facility] ([facility]) Albumin/Globulin Ratio 0.9 1.2-2.2 Below low normal [facility] ID Date Data Source [id number] 03/28/2020 10:33:00 AM EDT [facility] ([facility]) Name Value Range Interpretation Code Description Data Carli e(s) Supporting Document(s) Red Blood Count 4.58 10 4.00-5.40 Normal (applies to non-numeric results) [facility] ([facility]) White Blood Count 8.9 10 4.0-10.0 Normal (applies to non-numeri c results) [facility] ([facility]) Hemoglobin 12.7 g/dL 12.0-15.5 Normal (applies to non-numeric resul ts) [facility] ([facility]) Mean Corpuscular Volume 87.6 fl 80.0-96.0 Normal ( applies to non-numeric results) [facility] ([facility]) Hematocrit 40.1 % 36.0-47.0 Normal (applies to non-numeric resul ts) [facility] ([facility]) Mean Corpuscular Hemoglobin 27.7 pg 27.0-33.0 Norm al (applies to non-numeric results) [facility] ([facility]) Mean Corpuscular HGB Conc 31.7 g/dL 32.0-36.5 Below low normal [facility] ([facility]) Red Cell Distribution Width 16.8 % 11.5-14.5 Above high normal [facility] ([facility]) Platelet Count, Automated 347 10 150-450 Normal (applies to non-numeric results) [facility] ([facility]) Neutrophils % 56.1 % 36.0-66.0 Normal (applies to non-numeric re sults) [facility] ([facility]) Lymph % 31.9 % 24.0-44.0 Normal (applies to non-numeric resul ts) [facility] ([facility]) [place] % 7.0 % 0.0-5.0 Above high normal [facility] ([facility]) Baso % 1.1 % 0.0-1.0 Above high normal [facility] ([facility]) Eos % 3.2 % 0.0-3.0 Above high normal [facility] ([facility]) Immature Granulocyte % 0.7 % 0-3.0 Normal (applies to non-n umeric results) [facility] ([facility]) Nucleated Red Blood Cell % 0.0 % 0-0 Normal (applies to n on-numeric results) [facility] ([facility]) Neutrophils # 5.0 10 1.5-8.5 Normal (applies to non-numeric re sults) [facility] ([facility]) Lymph # 2.8 10 1.5-5.0 Normal (applies to non-numeric resul ts) [facility] ([facility]) [place] # 0.6 10 0.0-0.8 Normal (applies to non-numeric resul ts) [facility] ([facility]) Eos # 0.3 10 0.0-0.5 Normal (applies to non-numeric resul ts) [facility] ([facility]) Baso # 0.1 10 0.0-0.2 Normal (applies to non-numeric resul ts) [facility] ([facility]) ID Date Data Source [id number] 02/19/2020 09:46:00 AM EDT [facility] ([facility]) Name Value Range Interpretation Code Description Data Carli rce(s) Supporting Document(s) Ferritin [Mass/volume] in Serum or Plasma 8 ng/mL 8-252 Normal (applies to non- numeric results) [facility] ([facility]) ID Date Data Source [id number] 02/19/2020 09:46:00 AM EDT [facility] ([facility]) Name Value Range Interpretation Code Description Data Carli rce(s) Supporting Document(s) Iron (Fe) 29 ug/dL 50-170 Below low normal [facility] ( [facility]) Total Iron Binding Capacity 452 ug/dL 250-450 Above high normal [facility] ([facility]) Percent Saturation 6.4 % 13.2-45.0 Below low normal [facility] ([facility]) ID Date Data Source [id number] 02/19/2020 09:46:00 AM EDT [facility] ([facility]) Name Value Range Interpretation Code Description Data Carli rce(s) Supporting Document(s) Luteinizing Hormone 66.2 mIU/mL Normal (applies to non-num caroline results) [facility] ([facility]) <content>NORMAL MENSTRUATING FEMALES:</c ontent>
<content>FOLLICULAR PHASE 1.9-12.5 mIU/mL</content>
<content>MID CYCLE PEAK 8.7-76.3 mIU/mL</content>
<content>LUTEAL PHASE 0.5-16.9 mIU/mL</content>
<content></content>
<content> <1.5 mIU/mL</content>
<content>POST MENOPAUSAL FEMALES: 15.9-54.0 mIU/mL</content>
<content>CONTRACEPTIVES 0.7-5.6 mIU/mL</content>
<content></content> Follicle Stimulating Hormone 113.2 mIU/mL Nor mal (applies to non-numeric results) [facility] ([facility]) <content>NORMAL MENSTRUATING FEMALES:</c ontent>
<content>FOLLICULAR PHASE 2.5-10.2 mIU/mL</content>
<content>MID CYCLE PEAK 3.4-33.4 mIU/mL</content>
<content>LUTEAL PHASE 1.5-9.1 mIU/mL</content>
<content></content>
<content>: <0.3 mIU/mL</content>
<content>POST MENOPAUSAL FEMALES: 23.0-116.3 mIU/mL</content>
<content></content> ID Date Data Source [id number] 02/19/2020 09:46:00 AM EDT [facility] ([facility]) Name Value Range Interpretation Code Description Data Carli rce(s) Supporting Document(s) Estradiol (E2) [Mass/volume] in Serum or Plasma Laboratory test result Normal (applies to non-numeric results) [facility] ([facility]) <content>NORMAL MENSTRUATING FEMALES:</content>
<content></content>
<content>FOLLICULAR PHASE 19.5-144.2 PG/ML</content>
<content>MID CYCLE PEAK 63.9- 356.7 PG/ML</content>
<content>LUTEAL PHASE 55.8-214.2 PG/ML</content>
<content></content>
<content>POST MENOPAUSAL FEMALES <32.2 PG/ML</content>
<content>(UNTREATED)</content>
<content></content>
<content>THE eESTRADIOL2 ASSAY IS PERFORMED ON THE [place] BY</content>
<content>CHEMILUMINESCENCE AND SHOULD NOT BE COMPARED INTERCHANGEABLY</content>
<content>WITH OTHER METHODS.</content>
<content></content>
<content>Falsely elevated Estradiol test results can be seen in</content>
<content>patients treated with fulvestrant (Faslodex). Estradiol</content>
<content>concentrations in fulvestrant treated women should only be</content>
<content>measured by LC- MS (Liquid Chromatography-Mass Spectrometry).</content>
<content></content> ID Date Data Source [id number] 02/19/2020 09:46:00 AM EDT [facility] ([facility]) Name Value Range Interpretation Code Description Data Carli rce(s) Supporting Document(s) Glucose, Fasting 144 mg/dL 70-100 Above high normal [facility] ([facility]) Blood Urea Nitrogen 10 mg/dL 7-18 Normal (applies to non-nume abisai results) [facility] ([facility]) Sodium Level 138 meq/L 136-145 Normal (applies to non-numeric res ults) [facility] ([facility]) Creatinine For GFR 0.91 mg/dL 0.55-1.30 Normal (applies to non -numeric results) [facility] Glomerular Filtration Rate Laboratory test result Normal (applies to non- numeric results) [facility] ([facility]) <content>Units are mL/min/1.73 m2</content>
<content></content>
<content>Chronic Kidney Disease Staging per NKF:</content>
<content></content>
<content>Stage I & II GFR >=60 Normal to Mildly Decreased</content>
<content>Stage III GFR 30- 59 Moderately Decreased</content>
<content>Stage IV GFR 15-29 Severely Decreased</content>
<content>Stage V GFR <15 Very Little GFR Left</content>
<content>ESRD GFR <15 on DOOR ASSEMBLER</content>
<content></content> Chloride Level 109 meq/L 98-107 Above high normal [facility] ([facility]) Potassium Serum 4.3 meq/L 3.5-5.1 Normal (applies to non-numeric results) [facility] ([facility]) Carbon Dioxide Level 23 meq/L 21-32 Normal (applies to non-num caroline results) [facility] ([facility]) Calcium Level 9.6 mg/dL 8.5-10.1 Normal (applies to non-numeric re sults) [facility] ([facility]) Ast/Sgot 15 U/L 7-37 Normal (applies to non-numeric resul ts) [facility] ([facility]) Anion Gap 6 meq/L 8-16 Below low normal [facility] ( [facility]) Alkaline Phosphatase 85 U/L 45-117 Normal (applies to non-num caroline results) [facility] ([facility]) Total Protein 8.3 GM/DL 6.4-8.2 Above high normal [facility] ([facility]) Alt/SGPT 19 U/L 12-78 Normal (applies to non-numeric resul ts) [facility] ([facility]) Bilirubin,Total 0.3 mg/dL 0.2-1.0 Normal (applies to non-numeric results) [facility] ([facility]) Albumin 3.8 GM/DL 3.2-5.2 Normal (applies to non-numeric resul ts) [facility] ([facility]) Albumin/Globulin Ratio 0.8 1.2-2.2 Below low normal [facility] ([facility]) ID Date Data Source [id number] 02/19/2020 09:46:00 AM EDT [facility] ([facility]) Name Value Range Interpretation Code Description Data Carli rce(s) Supporting Document(s) Hemoglobin 10.5 g/dL 12.0-15.5 Below low normal [facility] ( [facility]) White Blood Count 8.5 10 4.0-10.0 Normal (applies to non-numeri c results) [facility] ([facility]) Red Blood Count 3.85 10 4.00-5.40 Below low normal [facility] ([facility]) Mean Corpuscular Hemoglobin 27.3 pg 27.0-33.0 Norm al (applies to non-numeric results) [facility] ([facility]) Mean Corpuscular HGB Conc 30.3 g/dL 32.0-36.5 Below low normal [facility] ([facility]) Hematocrit 34.7 % 36.0-47.0 Below low normal [facility] ( [facility]) Mean Corpuscular Volume 90.1 fl 80.0-96.0 Normal ( applies to non-numeric results) [facility] ([facility]) Red Cell Distribution Width 15.7 % 11.5-14.5 Above high normal [facility] ([facility]) Neutrophils % 61.9 % 36.0-66.0 Normal (applies to non-numeric re sults) [facility] ([facility]) Platelet Count, Automated 322 10 150-450 Normal (applies to non-numeric results) [facility] ([facility]) Baso % 0.9 % 0.0-1.0 Normal (applies to non-numeric resul ts) [facility] ([facility]) Lymph % 25.7 % 24.0-44.0 Normal (applies to non-numeric resul ts) [facility] ([facility]) Eos % 4.1 % 0.0-3.0 Above high normal [facility] ([facility]) [place] % 6.6 % 0.0-5.0 Above high normal [facility] ([facility]) Immature Granulocyte % 0.8 % 0-3.0 Normal (applies to non-n umeric results) [facility] ([facility]) Nucleated Red Blood Cell % 0.0 % 0-0 Normal (applies to n on-numeric results) [facility] ([facility]) Neutrophils # 5.2 10 1.5-8.5 Normal (applies to non-numeric re sults) [facility] ([facility]) Eos # 0.4 10 0.0-0.5 Normal (applies to non-numeric resul ts) [facility] ([facility]) Lymph # 2.2 10 1.5-5.0 Normal (applies to non-numeric resul ts) [facility] ([facility]) [place] # 0.6 10 0.0-0.8 Normal (applies to non-numeric resul ts) [facility] ([facility]) Baso # 0.1 10 0.0-0.2 Normal (applies to non-numeric resul ts) [facility] ([facility]) Procedure Social History Code Duration Value Status Description Data Source(s ) Smoking 01/20/2021 12:00:00 AM EDT Current Smoker completed Curre nt Smoker eCW1 ([facility]) Smoking 01/20/2021 12:00:00 AM EDT Current Smoker completed Curre nt Smoker eCW1 ([facility]) Smoking 01/20/2021 12:00:00 AM EDT Current Smoker completed Curre nt Smoker eCW1 ([facility]) Smoking 01/20/2021 12:00:00 AM EDT Current Smoker completed Curre nt Smoker eCW1 ([facility]) Smoking 12/05/2020 12:00:00 AM EDT Current Smoker completed Curre nt Smoker eCW1 ([facility]) Smoking 12/05/2020 12:00:00 AM EDT Current Smoker completed Curre nt Smoker eCW1 ([facility]) Smoking 12/05/2020 12:00:00 AM EDT Current Smoker completed Curre nt Smoker eCW1 ([facility]) Smoking 12/02/2020 12:00:00 AM EDT Current Smoker completed Curre nt Smoker eCW1 ([facility]) Smoking 12/02/2020 12:00:00 AM EDT Current Smoker completed Curre nt Smoker eCW1 ([facility]) Smoking 12/02/2020 12:00:00 AM EDT Current Smoker completed Curre nt Smoker eCW1 ([facility]) Smoking 11/27/2020 12:00:00 AM EDT Current Smoker completed Curre nt Smoker eCW1 ([facility]) Smoking 11/06/2020 12:00:00 AM EDT Current Smoker completed Curre nt Smoker eCW1 ([facility]) Vital Signs ID Date Data Source UNK Name Value Range Interpretation Code Description Data Source(s) Heart rate 68 /min 68 /min MEDENT ([facility]) Body temperature 96.7 [degF] 96.7 [degF] [facility]ENT ([facility]) Respiratory rate 16 /min 16 /min [facility] ( [facility]) Oxygen saturation in Arterial blood by Pulse oximetry 96 % 96 % [facility] ([facility]) Systolic blood pressure 132 mm[Hg] 132 mm[Hg] M EDENT ([facility]) Diastolic blood pressure 70 mm[Hg] 70 mm[Hg] [facility] ([facility]) Body weight 130.00 [lb_av] 130.00 [lb_av] MEDEN T ([facility]) Body weight 58.968 kg 58.968 kg [facility] ([facility]) Body height 62 [in_i] 62 [in_i] [facility] ([facility]) 5'2" Body mass index (BMI) [Ratio] 23.8 kg/m2 23.8 k g/m2 [facility] ([facility]) Body surface area Derived from formula 1.59 m2 1.59 m2 [facility] ([facility]) Body mass index (BMI) [Ratio] 24.0 kg/m2 24.0 k g/m2 [facility] ([facility]) Systolic blood pressure 132 mm[Hg] 132 mm[Hg] M EDENT ([facility]) Diastolic blood pressure 70 mm[Hg] 70 mm[Hg] [facility] ([facility]) Heart rate 72 /min 72 /min [facility] ([facility]) Body temperature 96.0 [degF] 96.0 [degF] [facility] ([facility]) Respiratory rate 16 /min 16 /min [facility] ( [facility]) Oxygen saturation in Arterial blood by Pulse oximetry 97 % 97 % [facility] ([facility]) Body weight 131.00 [lb_av] 131.00 [lb_av] MEDEN T ([facility]) Body weight 59.422 kg 59.422 kg [facility] ([facility]) Body height 62 [in_i] 62 [in_i] [facility] ([facility]) 5'2" Body surface area Derived from formula 1.60 m2 1.60 m2 [facility] ([facility]) Body weight 129 [lb_av] 129 [lb_av] W1 ([facility]) Body height 62 [in_i] 62 [in_i] eCW1 ([facility]) Body mass index (BMI) [Ratio] 23.59 kg/m2 23.59 kg/m2 eCW1 ([facility]) Heart rate 69 /min 69 /min eCW1 ([facility]) Respiratory rate 18 /min 18 /min W1 ([facility]) Body temperature 97.4 [degF] 97.4 [degF] eCW1 ( [facility]) Systolic blood pressure 120 mm[Hg] 120 mm[Hg] e CW1 ([facility]) Diastolic blood pressure 62 mm[Hg] 62 mm[Hg] eCW1 ([facility]) Body mass index (BMI) [Ratio] 23.41 kg/m2 23.41 kg/m2 [facility] Systolic blood pressure 123 mm[Hg] 123 mm[Hg] [facility] Diastolic blood pressure 64 mm[Hg] 64 mm[Hg] [facility] Body surface area Derived from formula 1.59 m2 1.59 m2 [facility] Body height 157.4800 cm 157.4800 cm [facility] Oxygen saturation in Arterial blood by Pulse oximetry 98 % 98 % [facility] Heart rate 67.0 /min 67.0 /min [facility] Respiratory rate 18 /min 18 /min [facility] Body temperature 37.1 Harper 37.1 Harper [facility] Body weight 58.06 kg 58.06 kg [facility] Body weight 130 [lb_av] 130 [lb_av] eCW1 ([facility]) Body weight 58.97 kg 58.97 kg eCW1 ([facility]) Body height 62 [in_i] 62 [in_i] eCW1 ([facility]) Body mass index (BMI) [Ratio] 23.77 kg/m2 23.77 kg/m2 eCW1 ([facility]) Heart rate 63 /min 63 /min eCW1 ([facility]) Body temperature 97.3 [degF] 97.3 [degF] eCW1 ( [facility]) Systolic blood pressure 138 mm[Hg] 138 mm[Hg] e CW1 ([facility]) Diastolic blood pressure 80 mm[Hg] 80 mm[Hg] eCW1 ([facility]) Body weight 129 [lb_av] 129 [lb_av] eCW1 ([facility]) Body height 62 [in_i] 62 [in_i] eCW1 ([facility]) Body mass index (BMI) [Ratio] 23.59 kg/m2 23.59 kg/m2 W1 ([facility]) Heart rate 66 /min 66 /min eCW1 ([facility]) Respiratory rate 20 /min 20 /min eCW1 ([facility]) Body temperature 97.6 [degF] 97.6 [degF] eCW1 ( [facility]) Systolic blood pressure 167 mm[Hg] 167 mm[Hg] e CW1 ([facility]) Diastolic blood pressure 79 mm[Hg] 79 mm[Hg] eCW1 ([facility]) Body weight 129 [lb_av] 129 [lb_av] eCW1 ([facility]) Body weight 58.51 kg 58.51 kg eCW1 ([facility]) Body height 62 [in_i] 62 [in_i] eCW1 ([facility]) Body mass index (BMI) [Ratio] 23.59 kg/m2 23.59 kg/m2 eCW1 ([facility]) Heart rate 62 /min 62 /min W1 ([facility]) Body temperature 97.8 [degF] 97.8 [degF] eCW1 ( [facility]) Systolic blood pressure 148 mm[Hg] 148 mm[Hg] e CW1 ([facility]) Diastolic blood pressure 84 mm[Hg] 84 mm[Hg] eCW1 ([facility]) Systolic blood pressure 206 mm[Hg] 206 mm[Hg] M EDENT ([facility], ) Diastolic blood pressure 88 mm[Hg] 88 mm[Hg] MEDENT ([facility]) Body height 63 [in_i] 63 [in_i] [facility] ([facility]) 5'3" Body weight 130.00 [lb_av] 130.00 [lb_av] MEDEN T ([facility]) Body mass index (BMI) [Ratio] 23.0 kg/m2 23.0 k g/m2 [facility] ([facility]) Call body weight 115 [lb_av] 115 [lb_av] MEDEN T ([facility]) Body weight 58.968 kg 58.968 kg [facility] ([facility]) Body surface area Derived from formula 1.61 m2 1.61 m2 [facility] ([facility]) Body height 62 [in_i] 62 [in_i] [facility] ([facility]) 5'2" Body weight 60.442 kg 60.442 kg [facility] ([facility]) Heart rate 59 /min 59 /min [facility] ([facility]) Body temperature 97.4 [degF] 97.4 [degF] [facility] ([facility]) Respiratory rate 16 /min 16 /min [facility] ( [facility]) Oxygen saturation in Arterial blood by Pulse oximetry 98 % 98 % [facility] ([facility]) Body weight 133.25 [lb_av] 133.25 [lb_av] MEDEN T ([facility]) Body mass index (BMI) [Ratio] 24.4 kg/m2 24.4 k g/m2 [facility] ([facility]) Body surface area Derived from formula 1.61 m2 1.61 m2 [facility] ([facility]) Systolic blood pressure 160 mm[Hg] 160 mm[Hg] M EDENT ([facility]) Diastolic blood pressure 90 mm[Hg] 90 mm[Hg] [facility] ([facility]) Systolic blood pressure 142 mm[Hg] 142 mm[Hg] M EDENT ([facility]) Diastolic blood pressure 68 mm[Hg] 68 mm[Hg] [facility] ([facility]) Heart rate 72 /min 72 /min [facility] ([facility]) Body temperature 97.0 [degF] 97.0 [degF] [facility] ([facility]) Respiratory rate 18 /min 18 /min [facility] ( [facility]) Oxygen saturation in Arterial blood by Pulse oximetry 96 % 96 % [facility] ([facility]) Body weight 128.12 [lb_av] 128.12 [lb_av] MEDEN T ([facility]) Body weight 58.117 kg 58.117 kg [facility] ([facility]) Body height 62 [in_i] 62 [in_i] [facility] ([facility]) 5'2" Body mass index (BMI) [Ratio] 23.4 kg/m2 23.4 k g/m2 [facility] ([facility]) Body surface area Derived from formula 1.58 m2 1.58 m2 [facility] ([facility]) Body weight 57.607 kg 57.607 kg [facility] ([facility]) Body height 62 [in_i] 62 [in_i] [facility] ([facility]) 5'2" Body mass index (BMI) [Ratio] 23.2 kg/m2 23.2 k g/m2 [facility] ([facility]) Body surface area Derived from formula 1.58 m2 1.58 m2 [facility] ([facility]) Body surface area 1.58 m2 1.58 m2 [facility] ([facility]) Systolic blood pressure 108 mm[Hg] 108 mm[Hg] M EDENT ([facility]) Diastolic blood pressure 58 mm[Hg] 58 mm[Hg] [facility] ([facility]) Heart rate 65 /min 65 /min [facility] ([facility]) Body temperature 97.0 [degF] 97.0 [degF] [facility] ([facility]) Oxygen saturation in Arterial blood by Pulse oximetry 96 % 96 % [facility] ([facility]) Body weight 127.00 [lb_av] 127.00 [lb_av] MEDEN T ([facility]) Systolic blood pressure 152 mm[Hg] 152 mm[Hg] M EDENT ([facility]) Diastolic blood pressure 64 mm[Hg] 64 mm[Hg] [facility] ([facility]) Body weight 128.50 [lb_av] 128.50 [lb_av] [facility] Body weight 58.288 kg 58.288 kg [facility] ([facility]) Body height 62 [in_i] 62 [in_i] [facility] ([facility]) 5'2" Heart rate 56 /min 56 /min [facility] ([facility]) Body temperature 98.3 [degF] 98.3 [degF] [facility] ([facility]) Respiratory rate 16 /min 16 /min [facility] ( [facility]) Oxygen saturation in Arterial blood by Pulse oximetry 98 % 98 % [facility] ([facility]) Body mass index (BMI) [Ratio] 23.5 kg/m2 23.5 k g/m2 [facility] ([facility]) Body surface area 1.58 m2 1.58 m2 [facility] ([facility])
[2021-04-07] MEDS ORDERED: KETOROLAC 60MG 2ML VIAL As Ordered ONE (12:28)
[2021-04-07] MEDS ORDERED: BUPIVACAINE HCL 0.25% 30ML VIAL As Ordered ONE (13:28)
[2021-04-07] MEDS ORDERED: LIDOCAINE 1% SDV 30ML VIAL As Ordered ONE (13:28)
[2021-04-07] MEDS ORDERED: DEXTROSE 50% 50 ML SYRINGE IV PRN (13:50)
[2021-04-07] MEDS ORDERED: PERCOCET 5MG/325MG TAB PO PRN (13:50)
[2021-04-07] MEDS ORDERED: NS 1,000 ML IV SCH (13:50)
[2021-04-07] MEDS ORDERED: GLUCOSE 4GM CHEW TABLET PO PRN (13:50)
[2021-04-07] MEDS ORDERED: MORPHINE 2 MG/ML 1ML VIAL (J2270) IV PRN (13:50)
[2021-04-07] MEDS ORDERED: ONDANSETRON 4MG/2ML VIAL IV PRN ×2 (13:50→18:20)
[2021-04-07] MEDS ORDERED: GLUCAGON INJ 1MG VIAL SC PRN (13:50)
[2021-04-07] MEDS ORDERED: ACETAMINOPHEN TAB 650MG DOSE (2X325MG) PO PRN (13:50)
[2021-04-07] MEDS ORDERED: MANNITOL 25% 12.5 GM/50 ML VIAL (J2150) As Ordered ONE (15:36)
[2021-04-07] MEDS: GABAPENTIN 300 MG CAP PO SCH ×2 (16:00→20:36)
[2021-04-07] MEDS: HumaLOG INSULIN (NovoLOG) PER UNIT SC SCH (17:30)
[2021-04-07] MEDS ORDERED: KETOROLAC 30 MG/ML 1ML VIAL IV PRN (17:33)
[2021-04-07] MEDS ORDERED: SUGAMMADEX SODIUM 500 MG/5 ML VIAL (BRIDION) As Ordered ONE (17:33)
[2021-04-07] MEDS ORDERED: LR 1,000 ML IV SCH (18:20)
[2021-04-07] MEDS ORDERED: fentaNYL 100 MCG/2 ML INJECTION (J3010) IV PRN (18:20)
[2021-04-07] MEDS ORDERED: oxyCODONE 5MG TAB PO PRN (18:20)
[2021-04-07] MEDS ORDERED: HYDROMORPHONE HCL 0.5 MG/ 0.5 ML SYRINGE (J1170 PER 1) IV PRN (18:20)
--- NOTE | 2021-04-07 18:22 | ROOPDOC ---
[facility] Report Of Operation Report of Operation DATE OF PROCEDURE: 04/07/21 PREPROCEDURE DIAGNOSIS: Right renal cell carcinoma. POSTPROCEDURE DIAGNOSIS: Right renal cell carcinoma. PROCEDURE: Right robotic-assisted laparoscopic partial nephrectomy, right renal exploration, intraoperative ultrasonography for tumor mapping. SURGEON: Chana Gaffney MD SALESPERSON HOSIERY: Jessa Chen NP ANESTHESIA: General OPERATIVE INDICATIONS: This is a 56 year old female with an approximately 1.5cm enhancing mass on her right kidney, concerning for malignancy. She was brought to the operating room today for the above procedure for treatment. DESCRIPTION OF PROCEDURE: The patient was brought to the operating room where general anesthesia was induced. Prophylactic antibiotics were infused. A Han catheter was inserted into the bladder under sterile conditions and the balloon was filled with sterile water. She was then placed in the left lateral decubitus position. All pressure points were appropriately padded and an axillary roll was placed. We then secured the patient to the table with tape. Her abdomen was then prepped and draped in the usual sterile fashion. Next, an 8mm incision was made in line with the 11th rib along the lateral border of the rectus. Pneumoperitoneum was achieved with a Veress needle. Next, an 8mm port was placed for the camera. At this point, the right robotic port was placed off the costal margin. A 5mm after school program assistant port was placed just inferior to the xiphoid process for placement of a liver retractor. Two left hand robotic ports were then placed with one between the anterior superior iliac spine and the hip and the other one just caudal to the camera port. Last the 12 mm after school program assistant port was placed inferior and medial to the camera port. The robot was docked. The liver was then dissected off of Gerota's fascia. Then a laparoscopic Allis grasper was utilized to retract the liver off of Gerota's fascia. Next the right colon was dissected off of Gerota's fascia. The duodenum was Kocherized. At this point the inferior vena cava (IVC) vein was identified. It was dissected latera lly until the right renal vein was encountered. I then dissected posterior and cephalad to the right renal vein and the right renal artery as well as a branch of the artery were found. They were carefully dissected. Next I had our classroom technology technician administer 12.5g of mannitol. Gerota's fascia was then opened and I defatted the kidney. The kidney was thoroughly mobilized until I was able to access the posterior aspect of the kidney. On the superior and posterior aspect of the kidney the tumor was seen. Ultrasound was then utilized to iva the boundaries of the mass. Next a bulldog clamp was placed on the renal artery branches and I began resecting the mass. The mass was resected completely. Once the mass was removed, the renorrhaphy was performed first by ligating all vessels in the base of resection with a #2-0 vicryl suture using figure of eight stitches. The capsule of the kidney was then reapproximated using #0-vicryl suture with Weck clips to cinch down the suture. Once this was done the clamp was removed and hemostasis was excellent. The warm ischemia time was 37 minutes. Next Bruce was applied to the resection bed and the tumor was placed in an endocatch bag. A Ashvin Parmar drain was positioned just lateral to the kidney. The robot was undocked after confirming hemostasis within the abdomen. The specimen was then extracted from the 12mm port site. The fascia of this port site was then closed a #0 vicryl suture using the Kel-Robbi fascial closure device. The abdomen was observed again and there was no bleeding from the right kidney or the hilum. We then removed all the ports under direct vision and there was no bleeding from any of the port sites. At this point, all the incisions were thoroughly irrigated. We then closed the skin of each site using a running #4-0 subcuticular Monocryl stitch. The Ashvin Parmar drain was secured to the skin using #3-0 Ethilon suture. Local anesthetic was then applied to each incision and Dermabond was then applied and this marked the conclusion of the procedure. The patient was then taken out of the left lateral decubitus position, awakened from anesthesia and transported to the recovery room in s table condition. ESTIMATED BLOOD LOSS: 100 mL INTRAOPERATIVE COMPLICATIONS: None SPECIMENS: Right renal mass WARM ISCHEMIA TIME: 37 minutes NORMAL RIGHT RENAL PARENCHYMA SPARED: 95% PLAN: The patient will be admitted to the hospital postoperatively and she will be discharged home once her renal function is stable and she is tolerating a regular diet. CHANA GAFFNEY MD Apr 07, 2021 14:01
[2021-04-07 19:21] LABS: HEMATOCRIT 35.8 % (36.0-47.0); HEMOGLOBIN 11.7 g/dl (12.0-15.5); MEAN CORPUSCULAR HGB CONC 32.7 g/dl (32.0-36.5); MEAN CORPUSCULAR VOLUME 91.8 fl (80.0-96.0); PLATELET COUNT, AUTOMATED 274 10^3/uL (150-450)
[2021-04-07 19:24] LABS: CALCIUM LEVEL 8.6 MG/DL (8.5-10.1); CREATININE FOR GFR 1.08 MG/DL (0.55-1.30); GLOMERULAR FILTRATION RATE 55.5 (>51); POTASSIUM SERUM 4.5 MEQ/L (3.5-5.1)
[2021-04-07 20:00] VITALS: BP 152/74
[2021-04-07] MEDS: DOCUSATE SODIUM 100MG CAPSULE PO SCH (20:36)
[2021-04-07] MEDS: ceFAZolin SOD 1 GM in D5W MINI-BAG PLUS 50 ML IV SCH (20:38)
[2021-04-07] MEDS: FERROUS SULFATE 325MG TAB PO SCH (20:42)
[2021-04-07] MEDS: PERCOCET 5MG/325MG TAB PO PRN (20:43)
[2021-04-07] MEDS ORDERED: HumaLOG INSULIN (NovoLOG) PER UNIT SC SCH (21:00)
[2021-04-07] MEDS ORDERED: QUEtiapine FUMARATE 25 MG TAB PO SCH (21:00)
[2021-04-07] MEDS ORDERED: traZODone 100 MG TAB PO SCH (21:00)
[2021-04-07] MEDS ORDERED: ATORVASTATIN 20 MG TAB PO SCH (21:00)
[2021-04-08 01:30] VITALS: BP 153/73
[2021-04-08] MEDS: PERCOCET 5MG/325MG TAB PO PRN ×3 (01:48→13:38)
[2021-04-08 03:06] VITALS: BP 148/72
[2021-04-08 05:02] VITALS: BP 148/72
[2021-04-08] MEDS: ceFAZolin SOD 1 GM in D5W MINI-BAG PLUS 50 ML IV SCH (05:19)
[2021-04-08] MEDS: DOCUSATE SODIUM 100MG CAPSULE PO SCH (08:21)
[2021-04-08] MEDS: GABAPENTIN 300 MG CAP PO SCH ×2 (08:21→15:37)
[2021-04-08] MEDS: HumaLOG INSULIN (NovoLOG) PER UNIT SC SCH ×2 (08:21→12:25)
[2021-04-08 08:22] VITALS: BP 188/84
[2021-04-08] MEDS: FERROUS SULFATE 325MG TAB PO SCH (08:22)
[2021-04-08] MEDS ORDERED: NIFEdipine 30 MG XL TAB PO SCH (09:00)
[2021-04-08 10:00] VITALS: BP 188/80
[2021-04-08 12:00] VITALS: BP 143/64
[2021-04-08 12:58] LABS: HEMATOCRIT 42.7 % (36.0-47.0); HEMOGLOBIN 13.9 g/dl (12.0-15.5); MEAN CORPUSCULAR HEMOGLOBIN 30.2 pg (27.0-33.0); MEAN CORPUSCULAR HGB CONC 32.6 g/dl (32.0-36.5); MEAN CORPUSCULAR VOLUME 92.6 fl (80.0-96.0); PLATELET COUNT, AUTOMATED 309 10^3/uL (150-450); RED BLOOD COUNT 4.61 10^6/uL (4.00-5.40); WHITE BLOOD COUNT 12.5 10^3/uL (4.0-10.0)
--- NOTE | 2021-04-08 13:06 | IPNPDOC ---
Subjective Review oF Systems Chief Complaint The patient is a 56-year-old female admitted with a reason for visit of Renal Mass. Events since Last Encounter No acute events o/n. Good pain control. No n/v. Has not ambulated yet. No f/c/ns. Objective Physical Examination General Exam: Alert, Cooperative, No Acute Distress ABDOMEN EXAM: Soft, Tenderness (mild), Other (incisions clean/dry/intact; ANDREA draining serous fluid) Skin Exam: Nl turgor and temperature Neuro Exam: Normal Speech Psych Exam: Mental status NL, Mood NL Other physical findings catheter draining clear yellow urine Vital Signs/I&O Vital Signs Date Time Temp Pulse Resp B/P (MAP) Pulse Ox O2 Delivery O2 Flow Rate FiO2 04/08/21 12:00 99.7 80 18 143/64 (90) 94 Room Air 04/08/21 05:02 2.0 I&O- Last 24 Hours up to 6 AM 04/08/21 06:00 Intake Total 2100 ml Output Total 2230 ml Balance -130 ml Laboratory Data Labs 24H Laboratory Tests 2 04/07/21 18:40: Bedside Glucose (Misc Panel) 266H 04/07/21 18:47: Nucleated Red Blood Cells % (auto) 0.0, Anion Gap 4L, Glomerular Filtration Rate 55.5, Calcium Level 8.6 04/07/21 20:24: Bedside Glucose (Misc Panel) 279H 04/08/21 07:15: Bedside Glucose (Misc Panel) 140H 04/08/21 12:21: Bedside Glucose (Misc Panel) 230H CBC/BMP Laboratory Tests 04/07/21 18:47 FSBS Laboratory Tests Test 04/07/21 18:40 04/07/21 20:24 04/08/21 07:15 04/08/21 12:21 Range/Units Bedside Glucose (Misc Panel) 266 279 140 230 70-105 MG/DL Assessment/Plan Date Seen The patient was seen on 04/08/21. Patient Summary This is a 56 y/o F POD1 s/p R robotic partial nephrectomy. Hb stable at 13.9. Cr pending. Good UOP. Normal ANDREA output. Plan/VTE VTE Prophylaxis Ordered?: Yes VTE Exclusion Mechanical Proph: N/A:VTE Prophy Ordered Plan - d/c IVF - d/c Han - percocet prn pain - strict I/Os - continue home meds - ambulate - SCDs when in bed - incentive spirometry - advance diet as tolerated - possible discharge home later today CHANA GAFFNEY MD Apr 08, 2021 13:05
[2021-04-08 13:15] LABS: CALCIUM LEVEL 9.3 MG/DL (8.5-10.1); CREATININE FOR GFR 1.16 MG/DL (0.55-1.30); GLOMERULAR FILTRATION RATE 51.1 (>51); POTASSIUM SERUM 3.8 MEQ/L (3.5-5.1)
[2021-04-08] MEDS ORDERED: PERCOCET PO (14:38)
--- NOTE | 2021-04-08 14:55 | DSES ---
DISCHARGE SUMMARY DATE OF ADMISSION: 04/07/2021 DATE OF DISCHARGE: 04/08/2021 ADMISSION DIAGNOSIS: Right renal mass. DISCHARGE DIAGNOSIS: Right renal cell carcinoma. ADMITTING PHYSICIAN: Dr. Ty Decker DISCHARGING PHYSICIAN: Dr. Ty Decker PROCEDURES PERFORMED: Right robotic-assisted laparoscopic partial nephrectomy 04/07/2021. HISTORY OF PRESENT ILLNESS: This is a 56-year-old female found to have an approximately 1.5 cm enhancing upper pole renal mass, concerning for malignancy. She underwent the above-listed procedure for treatment and was admitted to the hospital postoperatively. HOSPITALIZATION COURSE: The patient was admitted to the hospital after undergoing the above-listed procedure. Her postoperative course was unremarkable. Throughout her hospital stay her labs remained within normal limits. Specifically, her hemoglobin level remained stable on postoperative day #1 at 13.9. Her serum creatinine was 1.16. She had excellent urine output throughout her hospital stay and normal amounts from her Ashvin-Parmar drain. On postoperative day #1, her diet was advanced and she tolerated a regular diet without nausea. We got her ambulating on postoperative day #1, and she ambulated without any difficulty. Her pain was well controlled with oral pain medication. Her catheter we removed, and she voided without any difficulty. By the afternoon of postoperative day #1 she was doing very well and deemed ready for discharge home. Her Ashvin-Parmar drain was therefore removed, and she was discharged home with the plan for her to followup in the urology clinic in approximately 1-2 weeks. RENETTA
== END 2021-04-08 16:02 | disposition home or self-care (01) | DRG 442 ==
LOC: M OR 04-07 10:25 → M MSPAV 04-07 19:06
PROVIDERS: ADMIT Urology; ATTEND Urology
PROC: 8E0W4CZ Robotic Assisted Procedure of Trunk Region, Percutaneous Endoscopic Approach (ICD-10-PCS; 2021-04-07)
PROC: 0TB04ZZ Excision of Right Kidney, Percutaneous Endoscopic Approach (ICD-10-PCS; principal; 2021-04-07 12:55)
DX: C64.1 Malignant neoplasm of right kidney, except renal pelvis (principal); E11.51 Type 2 diabetes mellitus with diabetic peripheral angiopathy without gangrene; Q44.6 Cystic disease of liver; F17.210 Nicotine dependence, cigarettes, uncomplicated; E78.5 Hyperlipidemia, unspecified; E04.1 Nontoxic single thyroid nodule; F41.9 Anxiety disorder, unspecified; I10 Essential (primary) hypertension; F32.9 Major depressive disorder, single episode, unspecified; Z80.3 Family history of malignant neoplasm of breast; Z79.899 Other long term (current) drug therapy; Z79.84 Long term (current) use of oral hypoglycemic drugs

== ENCOUNTER → 2021-04-03 | Outpatient (CLI) | payer OTHER ==
[~2021-04-03] MED LIST changes: +PROC30TA PO
== END ==
LOC: M LABSMTC 12:18
PROVIDERS: ATTEND Anesthesiology
DX: Z01.812 Encounter for preprocedural laboratory examination (principal); Z20.822 Contact with and (suspected) exposure to COVID-19

== ENCOUNTER → 2022-03-31 | Outpatient (REF) ==
[~2022-03-31] MED LIST changes: +FENO67CA12 PO; -FENO67CA6 PO; -FLUO10CA16; +FLUO10CA18; +PERCOCET PO
== END ==
LOC: M PLAIMG 09:27
PROVIDERS: ATTEND Internal Medicine
DX: Z00.00 Encounter for general adult medical examination without abnormal findings (principal)